=== PATIENT | female | born 1945 | race Caucasian/White ===

== ENCOUNTER 2021-06-16 15:38 | Inpatient (IN) | payer MEDICARE, BC, SELFPAY ==
--- NOTE | ~2021-06-16 | XR_ITS ---
EXAMINATION: XR CHEST CLINICAL INFORMATION: Lung carcinoma. Upper respiratory symptoms COMPARISON: None TECHNIQUE: 2 views of the chest were obtained. FINDINGS: No previous. Heart and mediastinum is within normal limits. Nipple shadows noted at both bases. Lungs are mildly hyperinflated. There is a nonspecific irregular density within the left upper lobe measuring up to approximately 13 mm. This is nonspecific on this baseline exam. Minor reticular nodularity suspected within both apices. No pleural fluid. No overt CHF. Marked compression fracture of a mid to lower dorsal vertebral body as well as at the L1 level suspected. XR/XR chest 2V IMPRESSION: No infiltrate. 13 mm nonspecific nodular density left upper lobe. Recommend elective workup. A malignant lesion is not excluded based on this baseline finding.
[2021-06-16 17:00] VITALS: BP 107/60; PULSE 73; RESP 16; TEMP 36.9; O2SAT 100
[2021-06-16 17:01] VITALS: BMI 15.3
--- NOTE | 2021-06-16 20:29 | PC.ADMIT ---
Patient arrived via stretcher as a transfer from [facility] medical unit. Per crisis report, patient was brought to ER after eloping from PCP appointment, found walking on train tracks disoriented, and ambulance was called to transport patient to hospital. Admitted onto a medical unit for malnutrition and rule out any medical issues; Head CT Scan completed and showed chronic small vessel disease, no findings of malignancy. Per RN-RN report, swallow eval was completed at [facility] and patient able to swallow all textures and consistencies without issues; patient prefers pureed diet and continues to report difficulty swallowing. This Atomic Spectroscopist was notified by [facility] RN that patient became agitated when told she was told she was going to be transferred to [facility], Zyprexa 2.5mg PO was administered with no effect; agitation escalated when transport arrived to transfer patient and Zyprexa 2.5mg IM was administered. Upon arrival to the unit patient was alert, oriented to person, place and president; confused and forgetful, easily irritated; remained calm with no signs of agitation. Disorganized thought process, tangential speech; somatically perseverating. Patient reported multiple times I don't want to be here , I feel like the pills and shots don't work. HCP/Spouse was notified of patient's admission to the unit via phone call from this Atomic Spectroscopist. Patient refused to sign all paperwork upon admission. Patient here on a Section 12B, signed by Dr. Orr; placed on 15 minute checks for safety. Denies SI/HI/AVH.
[2021-06-17 06:00] VITALS: BP 105/59; PULSE 66; RESP 16; TEMP 36.2; O2SAT 100
[2021-06-17 07:23] LABS: Basophils Percent Auto 0.9 % (0-2); Eosinophils Absolute Auto 0.1 X10*3/uL (0.0-0.4); Hematocrit 40.1 % (37-47); Imm Gran Abs Auto 0.02 X10*3/uL (0.00-0.03); Imm Gran Pct Auto 0.9 % (0.0-0.4); Lymphocytes Absolute Auto 0.6 X10*3/uL (1.2-4.9); Lymphocytes Percent Auto 26.5 % (20-40); MANUAL DIFF FLAG SCAN; Mean Corpuscular HGB Conc 32.4 g/dl (31.0-35.0); Mean Corpuscular Hemoglobin 33.4 pg (27.0-33.0); Mean Corpuscular Volume 103.1 fL (80-98); Mean Platelet Volume 9.5 fL (9.4-12.3); Monocytes Absolute Auto 0.3 X10*3/uL (0.1-1.2); Monocytes Percent Auto 11.5 % (2-11); Neutrophils Absolute Auto 1.3 X10*3/uL (2.0-8.3); Neutrophils Percent Auto 57.2 % (45-73); Platelet Count 154 X10*3/uL (160-400); Red Blood Count 3.89 X10*6/uL (4.20-5.50); Red Cell Distribution Width 12.7 % (11.0-16.0); SCAN SMEAR FLAG 1
[2021-06-17 07:32] LABS: White Blood Count 2.3 X10*3/uL (4.8-10.8)
[2021-06-17 07:43] LABS: Estimated Average Glucose 88 mg/dL; Hemoglobin A1c % 4.7 %
[2021-06-17 07:55] LABS: Alanine Aminotransferase 38 U/L (0-31); Albumin Level 3.7 g/dL (3.5-5.0); Alkaline Phosphatase 60 U/L (39-117); Anion Gap 12 (12-20); Aspartate Amino Transferase 15 U/L (5-31); Bilirubin Total 0.4 mg/dL (0.0-1.0); Blood Urea Nitrogen 21 mg/dL (9-16); Calcium 9.4 mg/dL (8.4-10.2); Carbon Dioxide 30 mmol/L (22-29); Chloride 106 mmol/L (96-108); Cholesterol 269 mg/dL; Creatinine Clr Calc Pharmacy 47.3; Estimated Glomerular Filt Rate > 60; Glucose Fasting 90 mg/dL (60-99); HDL Cholesterol 67 mg/dL; LDL Cholesterol Calculated 188 mg/dl; Potassium 4.5 mmol/L (3.3-5.1); Sodium 143 mmol/L (135-145); Triglycerides 73 mg/dL
[2021-06-17 08:17] LABS: Free T4 (Free Thyroxine) 0.94 ng/dL (0.71-1.85); Thyroid Stimulating Hormone 0.87 uIU/mL (0.32-4.0)
[2021-06-17 08:24] LABS: SLIDE REVIEW VERIFIED
[2021-06-17 08:27] LABS: Folate 8.7 ng/mL (> or = 4.0); Vitamin B12 222 pg/mL (200-900)
[2021-06-17] MEDS: Thiamine HCL 100 MG TABLET PO (08:35)
[2021-06-17] MEDS: Multivitamin TABLET 1 TAB PO (08:35)
[2021-06-17] MEDS: Folic Acid 1 MG TABLET PO (08:35)
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
[2021-06-17 15:17] VITALS: BMI 15.3
--- NOTE | 2021-06-17 15:26 | MHC.CLN ---
RE: CONSULT PT IS SEVERELY MALNOURISHED PT WITH SEVERELY DEPLETED SUBCUTANEOUS FAT AND MUSCLE MASS WITH BMI 15. PT ALSO REFUSES REGULAR DIET AND INSIST ON EATING PUREED DIET ONLY, ALTHOUGH DOES NOT NEED MODIFIED DIET CONSISTENCY AND CLEARED BY FIELD CLERK. PT REFUSES TO REPORT UBW RANGE AND STATES, IT DOESN'T MATTER ANYWAY! I WILL NEVER GET BACK THERE, AND I DON'T HAVE ANY INSURANCE TO COVER IT DIET RX: REGULAR-WILL CHANGE DIET TO PUREED PER PT REQUEST RECOMMEND ADDING ENSURE BID TO INCREASE KCALS SUPPLEMENTS TO PROVIDE 700KCALS, 40G PROTEIN MONITOR LYTES CLOSELY FOR RE-FEEDING MG, PHOS, K+ WEIGHTS WEEKLY SEE ALSO CLINICAL NUTRITION ASSESSMENT
[2021-06-17 18:00] VITALS: BP 108/56; PULSE 98; RESP 16; TEMP 36.6; O2SAT 99
[2021-06-18] MEDS: Thiamine HCL 100 MG TABLET PO (10:07)
[2021-06-18] MEDS: Multivitamin TABLET 1 TAB PO (10:07)
[2021-06-18] MEDS: Folic Acid 1 MG TABLET PO (10:07)
--- NOTE | 2021-06-18 12:41 | HO.PSYCHPN ---
Subjective Subjective Date of Service: 06/18/21 Reason For Visit: depression Interim History: The patient is severely malnourished, she stated that she would like to get better, she denied suicidal ideation or psychosis, she admitted of been very depressed. She was able to explain how she was sent here and she was very upset with her at the PCP's office. Review of Systems Acute medical concerns: No Medical Review of Systems: unchanged Mental Status Exam Mental Status Exam Patient Appearance: Fatigued (mal nourished) Patient Orientation: Person, Place and Situation Level of Consciousness: Awake Patient Behavior: Suspicious and Fearful Mood Description: Withdrawn Affect Description: Constricted and Depressed Patient Cognition Impaired: No Ability to Follow Directions: Fair Speech Pattern: Clear Hallucinations: None Delusions: Not Present Thought Process: Distracted Thought Content: positive for [place], positive for Circumstantial and positive for Logical Depressive Symptoms: Increased Anxiety and Changes in Appetite Judgement: Poor Diagnostics Vital Signs (24Hr): Vital Signs - 24 hr 06/17/21 18:00 Temperature 97.9 F Pulse Rate 98 Respiratory Rate 16 Blood Pressure 108/56 L Pulse Oximetry 99 Body Mass Index 15.3 Labs Results: 06/17/21 07:10 06/17/21 07:10 Labs: Laboratory Results - last 48 hr 06/17/21 06/17/21 06/17/21 07:10 07:10 07:10 WBC 2.3 L RBC 3.89 L Hgb 13.0 Hct 40.1 MCV 103.1 H MCH 33.4 H MCHC 32.4 RDW 12.7 Plt Count 154 L MPV 9.5 Immature Gran % (Auto) 0.9 H Neut % (Auto) 57.2 Lymph % (Auto) 26.5 [place] % (Auto) 11.5 H Eos % (Auto) 3.0 Baso % (Auto) 0.9 Lymph # (Auto) 0.6 L [place] # (Auto) 0.3 Eos # (Auto) 0.1 Baso # (Auto) 0.0 Abs Immat Gran (auto) 0.02 Absolute Neuts (auto) 1.3 L Absolute Nucleated RBC 0.000 Nucleated RBC % (auto) 0.0 Smear Tech's Comments VERIFIED Smear Path Review SEE NOTE Sodium 143 Potassium 4.5 Chloride 106 Carbon Dioxide 30 H Anion Gap 12 BUN 21 H Creatinine 0.74 Estim Creat Clear Calc 47.3 Estimated GFR > 60 Fasting Glucose 90 Estimat Average Glucose 88 Hemoglobin A1c % 4.7 Calcium 9.4 Total Bilirubin 0.4 AST 15 ALT 38 H Alkaline Phosphatase 60 Total Protein 6.0 L Albumin 3.7 Triglycerides 73 Cholesterol 269 LDL Cholesterol, Calc 188 HDL Cholesterol 67 Vitamin B12 Folate TSH 0.87 Free T4 0.94 06/17/21 07:10 WBC RBC Hgb Hct MCV MCH MCHC RDW Plt Count MPV Immature Gran % (Auto) Neut % (Auto) Lymph % (Auto) [place] % (Auto) Eos % (Auto) Baso % (Auto) Lymph # (Auto) [place] # (Auto) Eos # (Auto) Baso # (Auto) Abs Immat Gran (auto) Absolute Neuts (auto) Absolute Nucleated RBC Nucleated RBC % (auto) Smear Tech's Comments Smear Path Review Sodium Potassium Chloride Carbon Dioxide Anion Gap BUN Creatinine Estim Creat Clear Calc Estimated GFR Fasting Glucose Estimat Average Glucose Hemoglobin A1c % Calcium Total Bilirubin AST ALT Alkaline Phosphatase Total Protein Albumin Triglycerides Cholesterol LDL Cholesterol, Calc HDL Cholesterol Vitamin B12 222 Folate 8.7 TSH Free T4 Medications Medications Current Medications Generic Name Dose Route Start Last Admin Trade Name Freq PRN Reason Stop Dose Admin Acetaminophen 650 mg 06/16/21 17:23 Acetaminophen 325 Mg Tablet PO Q6H PRN Headache/Pain Mild Scale (1-3) Al Hydroxide/Mg Hydroxide 30 ml 06/16/21 17:23 Magnesium Hydrox/Alum Hydrox 30 Ml Oral.Susp PO Q6H PRN Heartburn/Nausea Folic Acid 1 mg 06/17/21 09:00 06/18/21 10:07 Folic Acid 1 Mg Tablet PO 1 mg DAILY GUERO Administration Hydroxyzine HCl 25 mg 06/16/21 17:23 Hydroxyzine Hcl 25 Mg Tablet PO BEDTIME PRN Anxiety Lidocaine 1 patch 06/17/21 09:00 06/18/21 10:10 Lidocaine 4 % Patch Adh..Patch TRANSDERMA Not Given DAILY GUERO Magnesium Hydroxide 30 ml 06/16/21 17:23 Milk Of Magnesia 30 Ml Oral.Susp PO DAILY PRN Constipation Mirtazapine 7.5 mg 06/17/21 21:00 06/17/21 20:55 Mirtazapine 7.5 Mg Tablet PO Not Given BEDTIME GUERO Multivitamins/Vitamin C 1 tab 06/17/21 09:00 06/18/21 10:07 Multivitamin Tablet PO 1 tab DAILY GUERO Administration Olanzapine 5 mg 06/17/21 21:00 06/17/21 20:55 Olanzapine 5 Mg Tablet PO Not Given BEDTIME GUERO Thiamine HCl 100 mg 06/17/21 09:00 06/18/21 10:07 Thiamine Hcl 100 Mg Tablet PO 100 mg DAILY GUERO Administration Trazodone HCl 50 mg 06/16/21 17:23 Trazodone Hcl 50 Mg Tablet PO BEDTIME PRN Insomnia Allergies Allergies Allergy/AdvReac Type Severity Reaction Status Date / Time acetaminophen [From Percocet] Allergy Unknown Verified 06/16/21 16:20 clotrimazole Allergy Unknown Verified 06/16/21 16:20 oxycodone [From Percocet] Allergy Unknown Verified 06/16/21 16:20 paroxetine Allergy Unknown Verified 06/16/21 16:20 sulfamethoxazole Allergy Unknown Verified 06/16/21 16:20 [From Sulfamethoxazole-Trimethoprim] trimethoprim Allergy Unknown Verified 06/16/21 16:20 [From Sulfamethoxazole-Trimethoprim] Assessment & Plan Assessment & Plan (1) 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 Plan: Continue Zyprexa and REmeron. Gather collateral information. Greater than 50% of the session was spent on counseling and/or coordination of care Reason for contiued inpatient stay Substantial Risk for: harm to self, inability to function, rapid decompensation and med/psych decompensation
--- NOTE | 2021-06-18 13:36 | MHC.CLN ---
Addendum entered by Aubree Arias RD 06/18/21 13:37: STAFF REPORTED THAT PATIENT ATE PUREE FOOD TODAY AND DRANK ENSURE SUPPLEMENT. Original Note: FOLLOW UP
--- NOTE | 2021-06-18 18:15 | P.HPHOSP_ITS ---
History of Present Illness Date of Service: 06/18/21 Chief Complaint: For H&P As 75-year-old female history of lung cancer status post radiation who was recently admitted to [facility]: Due to delusional issues for psych evaluation further she also had MRI of brain that time which was fine(as per the discharge summary([facility])-patient was admitted now to psych floor because she?referred from the ED of [facility] for depression and psychotic symptoms.? The patient was at her PCP and as per her report, she got angry , had a verbal altercation with her and she left the clinic.? She was found by [place] Police walking on the train tracks. Currently went to see the patient seems flat affect and answers only few questions denies any pain or any shortness of breath or abdominal pain or urinary complaints No fevers or any new symptoms as per staff. Patient is patient poor historian-history is taken with the help of staff and discharge summary from [facility]. PMX: Adenocarcinoma of lung. Dysphagia with normal barium swallow on 07/2020 Fracture of the radius. History of atrial paroxysmal tachycardia Hyperlipidemia Osteoporosis. Otosclerosis pSHX: Cataract extractions in 2017 Colonoscopy normal 12/25/2009 hip fracture surgery 2011 cholecystectomy laparoscopy 2002 total abdominal hysterectomy 1988. Family History: Father abused alcohol. Social History: Lives with her , she has adult children, she has good social support and she has worked on the food industry.? Review of Systems Review of Systems: Answers limited questions: Currently went to see the patient seems flat affect and answers only few questions denies any pain or any shortness of breath or abdominal pain or urinary complaints No fevers or any new symptoms as per staff Seems very sad and depressed also has flat affect as above and and [place] seems to me [facility] Social History Household Members: Spouse Housing: House Do you presently have visiting nurse or other home services: No Unable to assess alcohol history related to: Unable to respond Patient Tobacco Use Status: Former Tobacco user Quit Date: 2003 Tobacco use type: Cigarette Smoked in Last 30 Days: No Use of substances other than those prescribed or required for medical reasons: No Currently Displaying Signs/Symptoms of Drug Intoxication Withdrawal: No Do you feel safe in your current relationship?: Yes Are you made to feel afraid or neglected: No Advance Directives: Yes Advance Directives Information Provided: No Advance Directives on File: Yes (HCP: Tremayne Ribera, spouse ) Do you have thoughts of harming others: None Do you have a plan to hurt others: No Plan Recently lost weight without trying: Yes How much weight loss: Unsure Eating poorly because of decreased appetite: No Nutrition screen score: 4 Nutrition Risks: Difficulty swallowing and Emaciation/Cachexia Patient : No : No Poor oral hygiene: No service: No Sexual orientation: Straight/Heterosexual Meds Allergies Allergy/AdvReac Type Severity Reaction Status Date / Time acetaminophen [From Percocet] Allergy Unknown Verified 06/16/21 16:20 clotrimazole Allergy Unknown Verified 06/16/21 16:20 oxycodone [From Percocet] Allergy Unknown Verified 06/16/21 16:20 paroxetine Allergy Unknown Verified 06/16/21 16:20 sulfamethoxazole Allergy Unknown Verified 06/16/21 16:20 [From Sulfamethoxazole-Trimethoprim] trimethoprim Allergy Unknown Verified 06/16/21 16:20 [From Sulfamethoxazole-Trimethoprim] Active Medications: Current Medications Generic Name Dose Route Start Last Admin Trade Name Freq PRN Reason Stop Dose Admin Acetaminophen 650 mg 06/16/21 17:23 Acetaminophen 325 Mg Tablet PO Q6H PRN Headache/Pain Mild Scale (1-3) Al Hydroxide/Mg Hydroxide 30 ml 06/16/21 17:23 Magnesium Hydrox/Alum Hydrox 30 Ml Oral.Susp PO Q6H PRN Heartburn/Nausea Folic Acid 1 mg 06/17/21 09:00 06/18/21 10:07 Folic Acid 1 Mg Tablet PO 1 mg DAILY GUERO Administration Lidocaine 1 patch 06/17/21 09:00 06/18/21 10:10 Lidocaine 4 % Patch Adh..Patch TRANSDERMA Not Given DAILY GUERO Lorazepam 0.25 mg 06/18/21 12:40 Lorazepam 0.5 Mg Tablet PO Q8H PRN Anxiety Magnesium Hydroxide 30 ml 06/16/21 17:23 Milk Of Magnesia 30 Ml Oral.Susp PO DAILY PRN Constipation Mirtazapine 7.5 mg 06/17/21 21:00 06/17/21 20:55 Mirtazapine 7.5 Mg Tablet PO Not Given BEDTIME GUERO Multivitamins/Vitamin C 1 tab 06/17/21 09:00 06/18/21 10:07 Multivitamin Tablet PO 1 tab DAILY GUERO Administration Olanzapine 5 mg 06/17/21 21:00 06/17/21 20:55 Olanzapine 5 Mg Tablet PO Not Given BEDTIME GUERO Thiamine HCl 100 mg 06/17/21 09:00 06/18/21 10:07 Thiamine Hcl 100 Mg Tablet PO 100 mg DAILY GUERO Administration Trazodone HCl 50 mg 06/16/21 17:23 Trazodone Hcl 50 Mg Tablet PO BEDTIME PRN Insomnia Home Medications Medication Instructions Recorded Confirmed Last Taken Type folic acid 1 mg tablet 1 mg PO DAILY 06/16/21 06/16/21 06/15/21 09:00 History lidocaine 5 % topical patch 1 patch TOPICAL DAILY 06/16/21 06/16/21 Unknown History mirtazapine 7.5 mg tablet 7.5 mg PO BEDTIME 06/16/21 06/16/21 Unknown History multivitamin 1 tab PO DAILY 06/16/21 06/16/21 06/15/21 History olanzapine 5 mg tablet 5 mg PO BEDTIME 06/16/21 06/16/21 06/15/21 History thiamine HCl (vitamin B1) 100 mg 100 mg PO DAILY 06/16/21 06/16/21 06/15/21 History tablet Physical Exam Vital Signs and Narrative: Vital Signs: Last Vital Signs Temp 97.9 F 06/17/21 18:00 Pulse 98 06/17/21 18:00 Resp 16 06/17/21 18:00 BP 108/56 L 06/17/21 18:00 Pulse Ox 99 06/17/21 18:00 Body Mass Index 15.3 Physical exam: Constitutional: Not in acute distress, trying to sleep. Cvs: [id number], [id number] , no murmur res: clear to auscultation ,no rhonchii or wheezing abd: no rebound or guarding ,nt, bs present. ext pulses present , no cyanosis neuro: Seems awake and alert , moves all extremities Results Labs CBC and Chem 7: 06/17/21 07:10 06/17/21 07:10 Assessment and Plan (1) Dementia associated with other underlying disease with behavioral disturbance: Status: Acute 1. Dementia with behavioral disturbances: Patient being managed the psychiatric unit. On Zyprexa and mirtazapine 2. History of lung cancer status post radiation: As per [facility] paper work brain mri neg in april/2021. Consider getting further information from PCP, try to call the -he could not able to provide information. Quality Stroke Does the patient have a stroke diagnosis?: No VTE Prior VTE?: No VTE Risk Level:: Medical - low VTE Device Contraindication: Patient Refused VTE Drug Contraindication: Patient Refused
[2021-06-19] MEDS: traZODone HCL 50 MG TABLET PO (01:48)
[2021-06-19] MEDS: Folic Acid 1 MG TABLET PO (08:47)
[2021-06-19] MEDS: Thiamine HCL 100 MG TABLET PO (08:48)
[2021-06-19] MEDS: Multivitamin TABLET 1 TAB PO (08:48)
[2021-06-19] MEDS: Lidocaine 4 % Patch ADH..PATCH 1 PATCH TRANSDERMA (08:48)
[2021-06-19 17:59] VITALS: BP 90/58; PULSE 97; RESP 16; TEMP 36.7; O2SAT 98
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
[2021-06-20 06:00] VITALS: BP 87/54; PULSE 99; RESP 18; TEMP 36.7; O2SAT 100
[2021-06-20] MEDS: LORazepam 0.5 MG TABLET 0.25 MG PO (15:07)
[2021-06-20 17:52] VITALS: BP 105/54; PULSE 87; RESP 16; TEMP 36.9; O2SAT 99
[2021-06-20] MEDS: OLANZapine 5 MG TABLET PO (20:00)
[2021-06-20] MEDS: Mirtazapine 7.5 MG TABLET PO (20:00)
--- NOTE | 2021-06-20 22:58 | HO.PSYCHPN ---
Subjective Subjective Date of Service: 06/20/21 Reason For Visit: depression Interim History: Patient seen. DW team. Patient refusing Zyporexa and Mirtazapine. She says they won't help. She is hopeless. Appetite poor. She says she has something in my system. but she is not clear what she means. Says this thing makes her hands cold and her skin dry and lotion doesn't help. Looks bewildered and confused. Says she has no clothes other than what she is wearing. We discuss that unit can help get her some clothes if family can't get to the hospital. Patient denies SI. She is very thin and appears malnourished. Per RN she can be irritable and angry. Review of Systems Review of Systems Answers limited questions: Currently went to see the patient seems flat affect and answers only few questions denies any pain or any shortness of breath or abdominal pain or urinary complaints No fevers or any new symptoms as per staff Seems very sad and depressed also has flat affect as above and and [place] seems to me Constitutional: Reports anorexia Eyes: Reports as per HPI Reports system reviewed and no additional complaints, except as documented Cardiovascular: Reports as per HPI Respiratory: Reports as per HPI Gastrointestinal: Reports as per HPI Musculoskeletal: Reports no additional musculoskeletal complaints Skin/Breast: Reports system reviewed and no additional complaints, except as docu Reports system reviewed and no additional complaints, except as documented Psychiatric: Reports as per HPI Endocrine: Reports no additional endocrine complaints Hematologic/Lymphatic: Reports as per HPI Allergic/Immunologic: Reports as per HPI Mental Status Exam Mental Status Exam Patient Appearance: Fatigued (mal nourished), Disheveled and Unkempt Patient Orientation: Person, Place and Situation Level of Consciousness: Awake Patient Behavior: Guarded, Suspicious, Fearful, Avoidant and Distractible Mood Description: Apathetic, Withdrawn and Depressed Affect Description: Constricted and Depressed Patient Cognition Impaired: No Ability to Follow Directions: Fair Speech Pattern: Clear Memory Description: Remote Impaired and Immediate Impaired Depressive Symptoms: Increased Irritability, Difficulty Sleeping, Significant Weight Loss, Feelings of Worthlessness, Hopelessness, Isolating-Friends/Family and Unhappiness Abnormal Motor Activity Signs and Symptoms: Psychomotor Retardation Judgement: Poor Diagnostics Vital Signs (24Hr): Vital Signs - 24 hr 06/20/21 06:00 06/20/21 17:52 Temperature 98.1 F 98.4 F Pulse Rate 99 87 Respiratory Rate 18 16 Blood Pressure 87/54 L 105/54 L Pulse Oximetry 100 99 Body Mass Index 15.3 Labs Results: 06/17/21 07:10 06/17/21 07:10 Medications Medications Current Medications Generic Name Dose Route Start Last Admin Trade Name Freq PRN Reason Stop Dose Admin Acetaminophen 650 mg 06/16/21 17:23 Acetaminophen 325 Mg Tablet PO Q6H PRN Headache/Pain Mild Scale (1-3) Al Hydroxide/Mg Hydroxide 30 ml 06/16/21 17:23 Magnesium Hydrox/Alum Hydrox 30 Ml Oral.Susp PO Q6H PRN Heartburn/Nausea Folic Acid 1 mg 06/17/21 09:00 06/20/21 08:50 Folic Acid 1 Mg Tablet PO Not Given DAILY GUERO Lidocaine 1 patch 06/17/21 09:00 06/20/21 08:51 Lidocaine 4 % Patch Adh..Patch TRANSDERMA Not Given DAILY GUERO Lorazepam 0.25 mg 06/18/21 12:40 06/20/21 15:07 Lorazepam 0.5 Mg Tablet PO 0.25 mg Q8H PRN Administration Anxiety Magnesium Hydroxide 30 ml 06/16/21 17:23 Milk Of Magnesia 30 Ml Oral.Susp PO DAILY PRN Constipation Mirtazapine 7.5 mg 06/17/21 21:00 06/20/21 20:00 Mirtazapine 7.5 Mg Tablet PO 7.5 mg BEDTIME GUERO Administration Multivitamins/Vitamin C 1 tab 06/17/21 09:00 06/20/21 08:51 Multivitamin Tablet PO Not Given DAILY GUERO Olanzapine 5 mg 06/17/21 21:00 06/20/21 20:00 Olanzapine 5 Mg Tablet PO 5 mg BEDTIME GUERO Administration Thiamine HCl 100 mg 06/17/21 09:00 06/20/21 08:51 Thiamine Hcl 100 Mg Tablet PO Not Given DAILY GUERO Trazodone HCl 50 mg 06/16/21 17:23 06/19/21 01:48 Trazodone Hcl 50 Mg Tablet PO 50 mg BEDTIME PRN Administration Insomnia Allergies Allergies Allergy/AdvReac Type Severity Reaction Status Date / Time acetaminophen [From Percocet] Allergy Unknown Verified 06/16/21 16:20 clotrimazole Allergy Unknown Verified 06/16/21 16:20 oxycodone [From Percocet] Allergy Unknown Verified 06/16/21 16:20 paroxetine Allergy Unknown Verified 06/16/21 16:20 sulfamethoxazole Allergy Unknown Verified 06/16/21 16:20 [From Sulfamethoxazole-Trimethoprim] trimethoprim Allergy Unknown Verified 06/16/21 16:20 [From Sulfamethoxazole-Trimethoprim] Assessment & Plan Assessment & Plan (1) Dementia associated with other underlying disease with behavioral disturbance: Status: Acute Code(s): F02.81 - Dementia in other diseases classified elsewhere with behavioral disturbance Assessment and Plan: 1. Dementia with behavioral disturbances: Patient being managed the psychiatric unit. On Zyprexa and mirtazapine. Encourage to take medication 2. History of lung cancer status post radiation: As per [facility] paper work brain mri neg in april/2021. Consider getting further information from PCP, try to call the -he could not able to provide information. Greater than 50% of the session was spent on counseling and/or coordination of care Reason for contiued inpatient stay Substantial Risk for: harm to others, inability to function and rapid decompensation
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
[2021-06-21] MEDS: Folic Acid 1 MG TABLET PO (08:10)
[2021-06-21] MEDS: Multivitamin TABLET 1 TAB PO (08:10)
[2021-06-21] MEDS: Thiamine HCL 100 MG TABLET PO (08:10)
[2021-06-21] MEDS: Lidocaine 4 % Patch ADH..PATCH 1 PATCH TRANSDERMA (08:10)
--- NOTE | 2021-06-21 14:14 | MHC.CLN ---
NUTRITION ASKED TO REVIEW MENU WITH PATIENT. DIET=NDD2. UNABLE TO STATE WHAT FOODS SHE MAY LIKE OR DISLIKE. RECEIVES ENSURE BID. STATED THAT ENSURE IS TOO SWEET . OFFERED OTHER SUPPLEMENT AND PATIENT DECLINED. CONTINUE CURRENT DIET AND ENCOURAGE INTAKE OF SUPPLEMENT.
[2021-06-21] MEDS: Mirtazapine 7.5 MG TABLET PO (22:08)
[2021-06-21] MEDS: OLANZapine 5 MG TABLET PO (22:08)
[2021-06-22] MEDS: Multivitamin TABLET 1 TAB PO (08:19)
[2021-06-22] MEDS: Folic Acid 1 MG TABLET PO (08:19)
[2021-06-22] MEDS: Thiamine HCL 100 MG TABLET PO (08:27)
--- NOTE | 2021-06-22 11:45 | HO.PSYCHPN ---
Subjective Subjective Date of Service: 06/22/21 Reason For Visit: depression Interim History: The patient has eaten 100% of her diet. She scored 20/30 on the SLAMS test. She has attended to groups and she has verbalized to the staff that she is not happy at all . Tomorrow, we will have a family meeting Review of Systems Acute medical concerns: No Medical Review of Systems: unchanged Mental Status Exam Mental Status Exam Patient Appearance: Disheveled Patient Orientation: Person Level of Consciousness: Awake Patient Behavior: Guarded and Suspicious Mood Description: Withdrawn Affect Description: Constricted Patient Cognition Impaired: Yes Ability to Follow Directions: Good Speech Pattern: Clear Hallucinations: None Delusions: Not Present Thought Process: Distracted and Evasive Thought Content: positive for Circumstantial Judgement: Poor Diagnostics Vital Signs (24Hr): Body Mass Index 15.3 Labs Results: 06/17/21 07:10 06/17/21 07:10 Medications Medications Current Medications Generic Name Dose Route Start Last Admin Trade Name Freq PRN Reason Stop Dose Admin Acetaminophen 650 mg 06/16/21 17:23 Acetaminophen 325 Mg Tablet PO Q6H PRN Headache/Pain Mild Scale (1-3) Al Hydroxide/Mg Hydroxide 30 ml 06/16/21 17:23 Magnesium Hydrox/Alum Hydrox 30 Ml Oral.Susp PO Q6H PRN Heartburn/Nausea Folic Acid 1 mg 06/17/21 09:00 06/22/21 08:19 Folic Acid 1 Mg Tablet PO 1 mg DAILY GUERO Administration Lidocaine 1 patch 06/17/21 09:00 06/22/21 10:01 Lidocaine 4 % Patch Adh..Patch TRANSDERMA Not Given DAILY GUERO Lorazepam 0.25 mg 06/18/21 12:40 06/20/21 15:07 Lorazepam 0.5 Mg Tablet PO 0.25 mg Q8H PRN Administration Anxiety Magnesium Hydroxide 30 ml 06/16/21 17:23 Milk Of Magnesia 30 Ml Oral.Susp PO DAILY PRN Constipation Mirtazapine 7.5 mg 06/17/21 21:00 06/21/21 22:08 Mirtazapine 7.5 Mg Tablet PO 7.5 mg BEDTIME GUERO Administration Multivitamins/Vitamin C 1 tab 06/17/21 09:00 06/22/21 08:19 Multivitamin Tablet PO 1 tab DAILY GUERO Administration Olanzapine 5 mg 06/17/21 21:00 06/21/21 22:08 Olanzapine 5 Mg Tablet PO 5 mg BEDTIME GUERO Administration Thiamine HCl 100 mg 06/17/21 09:00 06/22/21 08:27 Thiamine Hcl 100 Mg Tablet PO 100 mg DAILY GUERO Administration Trazodone HCl 50 mg 06/16/21 17:23 06/19/21 01:48 Trazodone Hcl 50 Mg Tablet PO 50 mg BEDTIME PRN Administration Insomnia Allergies Allergies Allergy/AdvReac Type Severity Reaction Status Date / Time acetaminophen [From Percocet] Allergy Unknown Verified 06/16/21 16:20 clotrimazole Allergy Unknown Verified 06/16/21 16:20 oxycodone [From Percocet] Allergy Unknown Verified 06/16/21 16:20 paroxetine Allergy Unknown Verified 06/16/21 16:20 sulfamethoxazole Allergy Unknown Verified 06/16/21 16:20 [From Sulfamethoxazole-Trimethoprim] trimethoprim Allergy Unknown Verified 06/16/21 16:20 [From Sulfamethoxazole-Trimethoprim] Assessment & Plan Assessment & Plan (1) Dementia associated with other underlying disease with behavioral disturbance: Status: Acute Code(s): F02.81 - Dementia in other diseases classified elsewhere with behavioral disturbance Assessment and Plan: 1. Dementia with behavioral disturbances: Patient being managed the psychiatric unit. On Zyprexa and mirtazapine. Encourage to take medication 2. History of lung cancer status post radiation: As per [facility] paper work brain mri neg in april/2021. Consider getting further information from PCP, try to call the -he could not able to provide information. Greater than 50% of the session was spent on counseling and/or coordination of care Reason for contiued inpatient stay Substantial Risk for: inability to function, rapid decompensation and med/psych decompensation
[2021-06-22 18:00] VITALS: BP 91/42; PULSE 90; RESP 12; TEMP 36.7; O2SAT 97
[2021-06-23 09:05] VITALS: BP 97/54; PULSE 78; RESP 16; TEMP 36.6; O2SAT 98
[2021-06-23] MEDS: Multivitamin TABLET 1 TAB PO (09:23)
[2021-06-23] MEDS: Thiamine HCL 100 MG TABLET PO (09:23)
[2021-06-23] MEDS: Folic Acid 1 MG TABLET PO (09:23)
[2021-06-23] MEDS: LORazepam 0.5 MG TABLET 0.25 MG PO (09:23)
--- NOTE | 2021-06-23 14:13 | MHC.CLN ---
NUTRITION VISITED PATIENT TODAY IN COMMON AREA. REPORTED EVERYTHING THAT SHE ATE FOR LUNCH AND APPEARED SATISFIED WITH MEAL AND VARIETY OF FOODS. REPORTED THAT ATE WELL.
--- NOTE | 2021-06-23 14:54 | P.PNPSI_ITS ---
Subjective Subjective Date of Service: 06/23/21 Reason For Visit: depression Interim History: The patient remains dysphoric and oppositional. We had a family meeting today with her and he reported that he cannot take care of her. We discussed options and she agreed to go to SNF. Medication Compliance: Intermittent Review of Systems Acute medical concerns: No Medical Review of Systems: unchanged Mental Status Exam Mental Status Exam Patient Appearance: Disheveled Patient Orientation: Person, Place and Situation Level of Consciousness: Awake and Appropriate Patient Behavior: Appropriate Mood Description: Withdrawn and Depressed Affect Description: Constricted and Angry Patient Cognition Impaired: Yes Ability to Follow Directions: Good Speech Pattern: Clear Memory Description: Intact Hallucinations: None Delusions: Paranoid Ideation Thought Process: Distracted and Evasive Thought Content: positive for Circumstantial and positive for Poverty of Content Judgement: Poor Diagnostics Vital Signs (24Hr): Vital Signs - 24 hr 06/22/21 18:00 06/23/21 09:05 Temperature 98.0 F 97.8 F Pulse Rate 90 78 Respiratory Rate 12 16 Blood Pressure 91/42 L 97/54 L Pulse Oximetry 97 98 Body Mass Index 15.3 Labs Results: 06/17/21 07:10 06/17/21 07:10 Medications Medications Current Medications Generic Name Dose Route Start Last Admin Trade Name Freq PRN Reason Stop Dose Admin Acetaminophen 650 mg 06/16/21 17:23 Acetaminophen 325 Mg Tablet PO Q6H PRN Headache/Pain Mild Scale (1-3) Al Hydroxide/Mg Hydroxide 30 ml 06/16/21 17:23 Magnesium Hydrox/Alum Hydrox 30 Ml Oral.Susp PO Q6H PRN Heartburn/Nausea Folic Acid 1 mg 06/17/21 09:00 06/23/21 09:23 Folic Acid 1 Mg Tablet PO 1 mg DAILY GUERO Administration Lidocaine 1 patch 06/17/21 09:00 06/23/21 10:51 Lidocaine 4 % Patch Adh..Patch TRANSDERMA Not Given DAILY GUREO Lorazepam 0.25 mg 06/18/21 12:40 06/23/21 09:23 Lorazepam 0.5 Mg Tablet PO 0.25 mg Q8H PRN Administration Anxiety Magnesium Hydroxide 30 ml 06/16/21 17:23 Milk Of Magnesia 30 Ml Oral.Susp PO DAILY PRN Constipation Mirtazapine 15 mg 06/22/21 21:00 06/22/21 21:12 Mirtazapine 15 Mg Tablet PO Not Given BEDTIME GUERO Multivitamins/Vitamin C 1 tab 06/17/21 09:00 06/23/21 09:23 Multivitamin Tablet PO 1 tab DAILY GUERO Administration Olanzapine 5 mg 06/17/21 21:00 06/22/21 21:12 Olanzapine 5 Mg Tablet PO Not Given BEDTIME GUERO Thiamine HCl 100 mg 06/17/21 09:00 06/23/21 09:23 Thiamine Hcl 100 Mg Tablet PO 100 mg DAILY GUERO Administration Trazodone HCl 100 mg 06/22/21 14:00 Trazodone Hcl 100 Mg Tablet PO BEDTIME PRN Insomnia Allergies Allergies Allergy/AdvReac Type Severity Reaction Status Date / Time acetaminophen [From Percocet] Allergy Unknown Verified 06/16/21 16:20 clotrimazole Allergy Unknown Verified 06/16/21 16:20 oxycodone [From Percocet] Allergy Unknown Verified 06/16/21 16:20 paroxetine Allergy Unknown Verified 06/16/21 16:20 sulfamethoxazole Allergy Unknown Verified 06/16/21 16:20 [From Sulfamethoxazole-Trimethoprim] trimethoprim Allergy Unknown Verified 06/16/21 16:20 [From Sulfamethoxazole-Trimethoprim] Assessment & Plan Assessment & Plan (1) Dementia associated with other underlying disease with behavioral disturbance: Status: Acute Code(s): F02.81 - Dementia in other diseases classified elsewhere with behavioral dis turbance Assessment and Plan: 1. Dementia with behavioral disturbances: Patient being managed the psychiatric unit. On Zyprexa and mirtazapine. Encourage to take medication 2. History of lung cancer status post radiation: As per [facility] paper work brain mri neg in april/2021. Consider getting further information from PCP, try to call the -he could not able to provide information. 3. Referral to SNF Greater than 50% of the session was spent on counseling and/or coordination of care Reason for contiued inpatient stay Substantial Risk for: inability to function, rapid decompensation and med/psych decompensation
[2021-06-23 18:00] VITALS: BP 96/46; PULSE 98; RESP 17; TEMP 36.8; O2SAT 98
[2021-06-23] MEDS: OLANZapine 5 MG TABLET PO (18:01)
[2021-06-24 06:00] VITALS: BP 89/54; PULSE 80; RESP 16; TEMP 36.8; O2SAT 100
[2021-06-24 07:00] VITALS: BMI 15.7
[2021-06-24] MEDS: Multivitamin TABLET 1 TAB PO (09:17)
[2021-06-24] MEDS: Folic Acid 1 MG TABLET PO (09:20)
[2021-06-24] MEDS: Thiamine HCL 100 MG TABLET PO (09:21)
[2021-06-24] MEDS: Lidocaine 4 % Patch ADH..PATCH 1 PATCH TRANSDERMA (09:24)
--- NOTE | 2021-06-24 12:19 | HO.PSYCHPN ---
Subjective Subjective Date of Service: 06/24/21 Reason For Visit: depression Interim History: The patient refused REmeron, still irritable and despondent but no aggressive behavior. She is going to have a [employer] application. She eats 100% of her diet Medication Compliance: Intermittent Review of Systems Acute medical concerns: No Medical Review of Systems: unchanged Mental Status Exam Mental Status Exam Patient Appearance: Well Grooomed Patient Orientation: Person, Place and Situation Level of Consciousness: Awake Patient Behavior: Guarded, Suspicious and Belligerent Mood Description: Depressed Affect Description: Constricted and Angry Patient Cognition Impaired: Yes Ability to Follow Directions: Fair Speech Pattern: Clear Hallucinations: None Delusions: Paranoid Ideation Thought Process: Distracted, Linear and Evasive Thought Content: positive for Poverty of Content Depressive Symptoms: Loss of Int. in Activity Judgement: Fair Diagnostics Vital Signs (24Hr): Vital Signs - 24 hr 06/23/21 18:00 06/24/21 06:00 Temperature 98.2 F 98.2 F Pulse Rate 98 80 Respiratory Rate 17 16 Blood Pressure 96/46 L 89/54 L Pulse Oximetry 98 100 Body Mass Index 15.7 Labs Results: 06/17/21 07:10 06/17/21 07:10 Medications Medications Current Medications Generic Name Dose Route Start Last Admin Trade Name Freq PRN Reason Stop Dose Admin Acetaminophen 650 mg 06/16/21 17:23 Acetaminophen 325 Mg Tablet PO Q6H PRN Headache/Pain Mild Scale (1-3) Al Hydroxide/Mg Hydroxide 30 ml 06/16/21 17:23 Magnesium Hydrox/Alum Hydrox 30 Ml Oral.Susp PO Q6H PRN Heartburn/Nausea Folic Acid 1 mg 06/17/21 09:00 06/24/21 09:20 Folic Acid 1 Mg Tablet PO 1 mg DAILY GUERO Administration Lidocaine 1 patch 06/17/21 09:00 06/24/21 09:24 Lidocaine 4 % Patch Adh..Patch TRANSDERMA 1 patch DAILY GUERO Administration Lorazepam 0.25 mg 06/18/21 12:40 06/23/21 09:23 Lorazepam 0.5 Mg Tablet PO 0.25 mg Q8H PRN Administration Anxiety Magnesium Hydroxide 30 ml 06/16/21 17:23 Milk Of Magnesia 30 Ml Oral.Susp PO DAILY PRN Constipation Mirtazapine 15 mg 06/22/21 21:00 06/23/21 20:36 Mirtazapine 15 Mg Tablet PO Not Given BEDTIME GUERO Multivitamins/Vitamin C 1 tab 06/17/21 09:00 06/24/21 09:17 Multivitamin Tablet PO 1 tab DAILY GUERO Administration Olanzapine 5 mg 06/17/21 21:00 06/23/21 18:01 Olanzapine 5 Mg Tablet PO 5 mg BEDTIME GUERO Administration Thiamine HCl 100 mg 06/17/21 09:00 06/24/21 09:21 Thiamine Hcl 100 Mg Tablet PO 100 mg DAILY GUERO Administration Trazodone HCl 100 mg 06/22/21 14:00 Trazodone Hcl 100 Mg Tablet PO BEDTIME PRN Insomnia Allergies Allergies Allergy/AdvReac Type Severity Reaction Status Date / Time acetaminophen [From Percocet] Allergy Unknown Verified 06/16/21 16:20 clotrimazole Allergy Unknown Verified 06/16/21 16:20 oxycodone [From Percocet] Allergy Unknown Verified 06/16/21 16:20 paroxetine Allergy Unknown Verified 06/16/21 16:20 sulfamethoxazole Allergy Unknown Verified 06/16/21 16:20 [From Sulfamethoxazole-Trimethoprim] trimethoprim Allergy Unknown Verified 06/16/21 16:20 [From Sulfamethoxazole-Trimethoprim] Assessment & Plan Assessment & Plan (1) Dementia associated with other underlying disease with behavioral disturbance: Status: Acute Code(s): F02.81 - Dementia in other diseases classified elsewhere with behavioral disturbance Assessment and Plan: 1. Dementia with behavioral disturbances: Patient being managed the psychiatric unit. On Zyprexa and mirtazapine. Encourage to take medication 2. History of lung cancer status post radiation: As per [facility] paper work brain mri neg in april/2021. Consider getting further information from PCP, try to call the -he could not able to provide information. 3. Referral to SNF Greater than 50% of the session was spent on counseling and/or coordination of care Reason for contiued inpatient stay Substantial Risk for: inability to function, rapid decompensation and med/psych decompensation
[2021-06-24 18:50] VITALS: BP 95/45; PULSE 89; RESP 17; TEMP 36.4; O2SAT 97
[2021-06-24] MEDS: LORazepam 0.5 MG TABLET 0.25 MG PO (19:24)
[2021-06-24] MEDS: Mirtazapine 15 MG TABLET PO (19:25)
[2021-06-24] MEDS: OLANZapine 5 MG TABLET PO (19:34)
[2021-06-25 06:00] VITALS: BP 88/50; PULSE 99; TEMP 36.8; O2SAT 97
[2021-06-25] MEDS: Folic Acid 1 MG TABLET PO (10:00)
[2021-06-25] MEDS: Multivitamin TABLET 1 TAB PO (10:00)
[2021-06-25] MEDS: Lidocaine 4 % Patch ADH..PATCH 1 PATCH TRANSDERMA (10:00)
[2021-06-25] MEDS: Thiamine HCL 100 MG TABLET PO (10:00)
--- NOTE | 2021-06-25 11:20 | MHC.CLN ---
NUTRITION MODERATE, FAVORABLE WEIGHT GAIN X 1 WEEK, +3.2%. APPEARS TO BE EATING WELL. CONTINUE CURRENT DIET AND SUPPLEMENT, REGULAR, NDD2, ENSURE 240 ML BID. CONTINUE TO FOLLOW WEEKLY.
--- NOTE | 2021-06-25 11:56 | P.PNPSI_ITS ---
Subjective Subjective Date of Service: 06/25/21 Reason For Visit: depression Interim History: The patient has been anxious that was helped with Ativan. SW has reached financial to start [facility] for discharge planning. Review of Systems Acute medical concerns: No Medical Review of Systems: unchanged Review of Systems Review of Systems Yes all other systems are reviewed and are negative Mental Status Exam Mental Status Exam Patient Appearance: Well Grooomed (very thin) Patient Orientation: Person, Place and Situation Level of Consciousness: Awake Patient Behavior: Appropriate and Cooperative Mood Description: Depressed and Hostile Affect Description: Constricted Patient Cognition Impaired: Yes Ability to Follow Directions: Good Speech Pattern: Clear Hallucinations: None Delusions: Not Present Thought Process: Distracted and Slowed Thinking Thought Content: positive for Circumstantial Judgement: Fair Diagnostics Vital Signs (24Hr): Vital Signs - 24 hr 06/24/21 18:50 06/25/21 06:00 Temperature 97.5 F 98.2 F Pulse Rate 89 99 Respiratory Rate 17 Blood Pressure 95/45 L 88/50 L Pulse Oximetry 97 97 Body Mass Index 15.7 Labs Results: 06/17/21 07:10 06/17/21 07:10 Medications Medications Current Medications Generic Name Dose Route Start Last Admin Trade Name Freq PRN Reason Stop Dose Admin Acetaminophen 650 mg 06/16/21 17:23 Acetaminophen 325 Mg Tablet PO Q6H PRN Headache/Pain Mild Scale (1-3) Al Hydroxide/Mg Hydroxide 30 ml 06/16/21 17:23 Magnesium Hydrox/Alum Hydrox 30 Ml Oral.Susp PO Q6H PRN Heartburn/Nausea Folic Acid 1 mg 06/17/21 09:00 06/25/21 10:00 Folic Acid 1 Mg Tablet PO 1 mg DAILY GUERO Administration Lidocaine 1 patch 06/17/21 09:00 06/25/21 10:00 Lidocaine 4 % Patch Adh..Patch TRANSDERMA 1 patch DAILY GUERO Administration Lorazepam 0.25 mg 06/18/21 12:40 06/24/21 19:24 Lorazepam 0.5 Mg Tablet PO 0.25 mg Q8H PRN Administration Anxiety Magnesium Hydroxide 30 ml 06/16/21 17:23 Milk Of Magnesia 30 Ml Oral.Susp PO DAILY PRN Constipation Mirtazapine 15 mg 06/22/21 21:00 06/24/21 19:25 Mirtazapine 15 Mg Tablet PO 15 mg BEDTIME GUERO Administration Multivitamins/Vitamin C 1 tab 06/17/21 09:00 06/25/21 10:00 Multivitamin Tablet PO 1 tab DAILY GUERO Administration Olanzapine 5 mg 06/17/21 21:00 06/24/21 19:34 Olanzapine 5 Mg Tablet PO 5 mg BEDTIME GUERO Administration Thiamine HCl 100 mg 06/17/21 09:00 06/25/21 10:00 Thiamine Hcl 100 Mg Tablet PO 100 mg DAILY GUERO Administration Trazodone HCl 100 mg 06/22/21 14:00 Trazodone Hcl 100 Mg Tablet PO BEDTIME PRN Insomnia Allergies Allergies Allergy/AdvReac Type Severity Reaction Status Date / Time acetaminophen [From Percocet] Allergy Unknown Verified 06/16/21 16:20 clotrimazole Allergy Unknown Verified 06/16/21 16:20 oxycodone [From Percocet] Allergy Unknown Verified 06/16/21 16:20 paroxetine Allergy Unknown Verified 06/16/21 16:20 sulfamethoxazole Allergy Unknown Verified 06/16/21 16:20 [From Sulfamethoxazole-Trimethoprim] trimethoprim Allergy Unknown Verified 06/16/21 16:20 [From Sulfamethoxazole-Trimethoprim] Assessment & Plan Assessment & Plan (1) Dementia associated with other underlying disease with behavioral disturbance: Status: Acute Code(s): F02.81 - Dementia in other diseases classified elsewhere with behavioral disturbance Assessment and Plan: 1. Dementia with behavioral disturbances: Patient being managed the psychiatric unit. On Zyprexa and mirtazapine. Encourage to take medication 2. History of lung cancer status post radiation: As per [facility] paper work brain mri neg in april/2021. Consider getting further information from PCP, try to call the -he could not able to provide information. 3. Referral to SNF Greater than 50% of the session was spent on counseling and/or coordination of care Reason for contiued inpatient stay Substantial Risk for: inability to function, rapid decompensation and med/psych decompensation
[2021-06-25 17:51] VITALS: BP 109/51; PULSE 72; RESP 17; TEMP 36.4; O2SAT 99
[2021-06-25] MEDS: OLANZapine 5 MG TABLET PO (20:07)
[2021-06-25] MEDS: Mirtazapine 15 MG TABLET PO (20:07)
[2021-06-26 06:00] VITALS: RESP 16
[2021-06-26] MEDS: Multivitamin TABLET 1 TAB PO (08:06)
[2021-06-26] MEDS: Thiamine HCL 100 MG TABLET PO (08:06)
[2021-06-26] MEDS: Folic Acid 1 MG TABLET PO (08:06)
--- NOTE | 2021-06-26 09:25 | P.PNPSI_ITS ---
Subjective Subjective Date of Service: 06/26/21 Reason For Visit: depression Interim History: pt is seen in her room, where she is lying in bed shortly after breakfast. appears cachectic. unable to say the reason for her hospitalization: because they sent me from the other hospital. mood stays the same. reports she feels that everybody's watching me, staff and peers included. sometimes i feel like they're trying to orritate me. asking for discharge. talking about how staff and peers send signals to each other via placing food in different spots. per staff, pt is taking medications and eating, yet often denies both. no other notable events or behaviors. Mental Status Exam Mental Status Exam Narrative: dressed half in personal wear and half in hospital scrubs. disheveled. no PMA/PMR. cooperative. speech nml in rate, amount, loudness, latency. decr prosody. thoughts linear and illogical. + delusions. affect constricted, hypo-intense, non-labile. mood stays the same. no SI/HI/AVH expressed. Diagnostics Vital Signs (24Hr): Vital Signs - 24 hr 06/25/21 17:51 06/26/21 06:00 Temperature 97.6 F Pulse Rate 72 Respiratory Rate 17 16 Blood Pressure 109/51 L Pulse Oximetry 99 Body Mass Index 15.7 Labs Results: 06/17/21 07:10 06/17/21 07:10 Medications Medications Current Medications Generic Name Dose Route Start Last Admin Trade Name Freq PRN Reason Stop Dose Admin Acetaminophen 650 mg 06/16/21 17:23 Acetaminophen 325 Mg Tablet PO Q6H PRN Headache/Pain Mild Scale (1-3) Al Hydroxide/Mg Hydroxide 30 ml 06/16/21 17:23 Magnesium Hydrox/Alum Hydrox 30 Ml Oral.Susp PO Q6H PRN Heartburn/Nausea Folic Acid 1 mg 06/17/21 09:00 06/26/21 08:06 Folic Acid 1 Mg Tablet PO 1 mg DAILY GUERO Administration Lidocaine 1 patch 06/17/21 09:00 06/26/21 08:21 Lidocaine 4 % Patch Adh..Patch TRANSDERMA Not Given DAILY GUERO Lorazepam 0.25 mg 06/18/21 12:40 06/24/21 19:24 Lorazepam 0.5 Mg Tablet PO 0.25 mg Q8H PRN Administration Anxiety Magnesium Hydroxide 30 ml 06/16/21 17:23 Milk Of Magnesia 30 Ml Oral.Susp PO DAILY PRN Constipation Mirtazapine 15 mg 06/22/21 21:00 06/25/21 20:07 Mirtazapine 15 Mg Tablet PO 15 mg BEDTIME GUERO Administration Multivitamins/Vitamin C 1 tab 06/17/21 09:00 06/26/21 08:06 Multivitamin Tablet PO 1 tab DAILY GUERO Administration Olanzapine 5 mg 06/17/21 21:00 06/25/21 20:07 Olanzapine 5 Mg Tablet PO 5 mg BEDTIME GUERO Administration Thiamine HCl 100 mg 06/17/21 09:00 06/26/21 08:06 Thiamine Hcl 100 Mg Tablet PO 100 mg DAILY GUERO Administration Trazodone HCl 100 mg 06/22/21 14:00 Trazodone Hcl 100 Mg Tablet PO BEDTIME PRN Insomnia Allergies Allergies Allergy/AdvReac Type Severity Reaction Status Date / Time acetaminophen [From Percocet] Allergy Unknown Verified 06/16/21 16:20 clotrimazole Allergy Unknown Verified 06/16/21 16:20 oxycodone [From Percocet] Allergy Unknown Verified 06/16/21 16:20 paroxetine Allergy Unknown Verified 06/16/21 16:20 sulfamethoxazole Allergy Unknown Verified 06/16/21 16:20 [From Sulfamethoxazole-Trimethoprim] trimethoprim Allergy Unknown Verified 06/16/21 16:20 [From Sulfamethoxazole-Trimethoprim] Assessment & Plan Assessment & Plan (1) Dementia associated with other underlying disease with behavioral disturbance: Status: Acute Code(s): F02.81 - Dementia in other diseases classified elsewhere with behavioral disturbance Assessment and Plan: 1. Dementia with behavioral disturbances: Patient being managed the psychiatric unit. On Zyprexa and mirtazapine. Encourage to take medication. zyprexa dosing increased to 7.5 mg QHS as of 06/26 due to clear paranoid delusions. 2. History of lung cancer status post radiation: As per [facility] paper work brain mri neg in april/2021. Consider getting further information from PCP, try to call the -he could not able to provide information. 3. Referral to SNF Greater than 50% of the session was spent on counseling and/or coordination of care Reason for contiued inpatient stay Substantial Risk for: inability to function and rapid decompensation
[2021-06-26] MEDS: Mirtazapine 15 MG TABLET PO (21:24)
[2021-06-26] MEDS: OLANZapine 7.5 MG TABLET PO (21:24)
[2021-06-27 06:00] VITALS: BP 100/60; PULSE 83; TEMP 37.1; O2SAT 97
[2021-06-27] MEDS: Folic Acid 1 MG TABLET PO (07:59)
[2021-06-27] MEDS: Thiamine HCL 100 MG TABLET PO (07:59)
[2021-06-27] MEDS: Multivitamin TABLET 1 TAB PO (07:59)
--- NOTE | 2021-06-27 11:13 | P.PNPSI_ITS ---
Subjective Subjective Date of Service: 06/27/21 Reason For Visit: depression Interim History: pt is seen in her room, where she is lying in bed late morning. she has no requests or complaints for MD. she is informed regular staff will return tomorrow to pick up man care. per staff, no issues in the past day. mihir, attended group this morning, however, which is a change. Mental Status Exam Mental Status Exam Narrative: dressed appropriately. somewhat disheveled. no PMA/PMR. lucy ative. speech nml in rate, amount, loudness, latency. decr prosody. thoughts linear and illogical. affect constricted, hypo-intense, non-labile. no SI/HI/AVH expressed. Diagnostics Vital Signs (24Hr): Vital Signs - 24 hr 06/27/21 06:00 Temperature 98.7 F Pulse Rate 83 Blood Pressure 100/60 Pulse Oximetry 97 Body Mass Index 15.7 Labs Results: 06/17/21 07:10 06/17/21 07:10 Medications Medications Current Medications Generic Name Dose Route Start Last Admin Trade Name Freq PRN Reason Stop Dose Admin Acetaminophen 650 mg 06/16/21 17:23 Acetaminophen 325 Mg Tablet PO Q6H PRN Headache/Pain Mild Scale (1-3) Al Hydroxide/Mg Hydroxide 30 ml 06/16/21 17:23 Magnesium Hydrox/Alum Hydrox 30 Ml Oral.Susp PO Q6H PRN Heartburn/Nausea Folic Acid 1 mg 06/17/21 09:00 06/27/21 07:59 Folic Acid 1 Mg Tablet PO 1 mg DAILY GUERO Administration Lidocaine 1 patch 06/17/21 09:00 06/27/21 09:15 Lidocaine 4 % Patch Adh..Patch TRANSDERMA Not Given DAILY GUERO Lorazepam 0.25 mg 06/18/21 12:40 06/24/21 19:24 Lorazepam 0.5 Mg Tablet PO 0.25 mg Q8H PRN Administration Anxiety Magnesium Hydroxide 30 ml 06/16/21 17:23 Milk Of Magnesia 30 Ml Oral.Susp PO DAILY PRN Constipation Mirtazapine 15 mg 06/22/21 21:00 06/26/21 21:24 Mirtazapine 15 Mg Tablet PO 15 mg BEDTIME GUERO Administration Multivitamins/Vitamin C 1 tab 06/17/21 09:00 06/27/21 07:59 Multivitamin Tablet PO 1 tab DAILY GUERO Administration Olanzapine 7.5 mg 06/26/21 21:00 06/26/21 21:24 Olanzapine 7.5 Mg Tablet PO 7.5 mg BEDTIME GUERO Administration Thiamine HCl 100 mg 06/17/21 09:00 06/27/21 07:59 Thiamine Hcl 100 Mg Tablet PO 100 mg DAILY GUERO Administration Trazodone HCl 100 mg 06/22/21 14:00 Trazodone Hcl 100 Mg Tablet PO BEDTIME PRN Insomnia Allergies Allergies Allergy/AdvReac Type Severity Reaction Status Date / Time acetaminophen [From Percocet] Allergy Unknown Verified 06/16/21 16:20 clotrimazole Allergy Unknown Verified 06/16/21 16:20 oxycodone [From Percocet] Allergy Unknown Verified 06/16/21 16:20 paroxetine Allergy Unknown Verified 06/16/21 16:20 sulfamethoxazole Allergy Unknown Verified 06/16/21 16:20 [From Sulfamethoxazole-Trimethoprim] trimethoprim Allergy Unknown Verified 06/16/21 16:20 [From Sulfamethoxazole-Trimethoprim] Assessment & Plan Assessment & Plan (1) Dementia associated with other underlying disease with behavioral disturbance: Status: Acute Code(s): F02.81 - Dementia in other diseases classified elsewhere with behavioral disturbance Assessment and Plan: 1. Dementia with behavioral disturbances: Patient being managed the psychiatric unit. On Zyprexa and mirtazapine. Encourage to take medication. zyprexa dosing increased to 7.5 mg QHS as of 06/26 due to clear paranoid delusions. 2. History of lung cancer status post radiation: As per [facility] paper work brain mri neg in april/2021. Consider getting further information from PCP, try to call the -he could not able to provide information. 3. Referral to SNF Greater than 50% of the session was spent on counseling and/or coordination of care Reason for contiued inpatient stay Substantial Risk for: inability to function
[2021-06-27 18:00] VITALS: BP 100/60; PULSE 93; TEMP 36.6; O2SAT 96
[2021-06-27] MEDS: Mirtazapine 15 MG TABLET PO (20:25)
[2021-06-27] MEDS: OLANZapine 7.5 MG TABLET PO (20:25)
[2021-06-28] MEDS: Folic Acid 1 MG TABLET PO (09:21)
[2021-06-28] MEDS: Multivitamin TABLET 1 TAB PO (09:21)
[2021-06-28] MEDS: Thiamine HCL 100 MG TABLET PO (09:21)
[2021-06-28] MEDS: LORazepam 0.5 MG TABLET 0.25 MG PO (16:55)
[2021-06-28 17:37] VITALS: BP 91/44; PULSE 89; RESP 16; TEMP 36.4; O2SAT 98
--- NOTE | 2021-06-28 18:47 | PC.NURSE ---
Patient is alert and oriented x 3. She showers with staff assistance and attends groups throughout the day. She actively participates in groups and is complimentary towards other patients but remains profoundly negative surrounding her own accomplishments and status. Patient is isolative to self when not engaged in groups.
[2021-06-28] MEDS: OLANZapine 7.5 MG TABLET PO (19:53)
[2021-06-28] MEDS: Mirtazapine 15 MG TABLET PO (19:53)
[2021-06-29 10:26] VITALS: BP 106/57; PULSE 95; RESP 18; TEMP 37.1; O2SAT 96
[2021-06-29] MEDS: Thiamine HCL 100 MG TABLET PO (10:27)
[2021-06-29] MEDS: LORazepam 0.5 MG TABLET 0.25 MG PO ×2 (10:27→16:09)
[2021-06-29] MEDS: Folic Acid 1 MG TABLET PO (10:28)
[2021-06-29] MEDS: Multivitamin TABLET 1 TAB PO (10:28)
[2021-06-29] MEDS: Magnesium Hydrox/Alum Hydrox 30 ML ORAL.SUSP PO (14:00)
--- NOTE | 2021-06-29 15:54 | P.PNPSI_ITS ---
Subjective Subjective Date of Service: 06/30/21 Reason For Visit: depression Interim History: The patient has attended to groups but her attitude is very negative. The staff has realized that she thrives well on a structured groups. Review of Systems Acute medical concerns: No Medical Review of Systems: unchanged Mental Status Exam Mental Status Exam Patient Appearance: Well Grooomed (very thin) Patient Orientation: Person, Place, Time and Situation Level of Consciousness: Awake Patient Behavior: Avoidant Mood Description: Suspicious Affect Description: Constricted and Depressed Patient Cognition Impaired: Yes Ability to Follow Directions: Fair Speech Pattern: Clear Hallucinations: None Delusions: Paranoid Ideation Thought Process: Distracted Thought Content: positive for Circumstantial Depressive Symptoms: Increased Anxiety Judgement: Fair Diagnostics Vital Signs (24Hr): Vital Signs - 24 hr 06/28/21 17:37 06/29/21 10:26 Temperature 97.5 F 98.8 F Pulse Rate 89 95 Respiratory Rate 16 18 Blood Pressure 91/44 L 106/57 L Pulse Oximetry 98 96 Body Mass Index 15.7 Labs Results: 06/17/21 07:10 06/17/21 07:10 Medications Medications Current Medications Generic Name Dose Route Start Last Admin Trade Name Freq PRN Reason Stop Dose Admin Acetaminophen 650 mg 06/16/21 17:23 Acetaminophen 325 Mg Tablet PO Q6H PRN Headache/Pain Mild Scale (1-3) Al Hydroxide/Mg Hydroxide 30 ml 06/16/21 17:23 06/29/21 14:00 Magnesium Hydrox/Alum Hydrox 30 Ml Oral.Susp PO 30 ml Q6H PRN Administration Heartburn/Nausea Folic Acid 1 mg 06/17/21 09:00 06/29/21 10:28 Folic Acid 1 Mg Tablet PO 1 mg DAILY GUERO Administration Lidocaine 1 patch 06/17/21 09:00 06/29/21 10:55 Lidocaine 4 % Patch Adh..Patch TRANSDERMA Not Given DAILY GUERO Lorazepam 0.25 mg 06/28/21 14:45 06/29/21 10:27 Lorazepam 0.5 Mg Tablet PO 0.25 mg Q6H PRN Administration Anxiety Magnesium Hydroxide 30 ml 06/16/21 17:23 Milk Of Magnesia 30 Ml Oral.Susp PO DAILY PRN Constipation Mirtazapine 15 mg 06/22/21 21:00 06/28/21 19:53 Mirtazapine 15 Mg Tablet PO 15 mg BEDTIME GUERO Administration Multivitamins/Vitamin C 1 tab 06/17/21 09:00 06/29/21 10:28 Multivitamin Tablet PO 1 tab DAILY GUERO Administration Olanzapine 7.5 mg 06/26/21 21:00 06/28/21 19:53 Olanzapine 7.5 Mg Tablet PO 7.5 mg BEDTIME GUERO Administration Thiamine HCl 100 mg 06/17/21 09:00 06/29/21 10:27 Thiamine Hcl 100 Mg Tablet PO 100 mg DAILY GUERO Administration Trazodone HCl 100 mg 06/22/21 14:00 Trazodone Hcl 100 Mg Tablet PO BEDTIME PRN Insomnia Allergies Allergies Allergy/AdvReac Type Severity Reaction Status Date / Time acetaminophen [From Percocet] Allergy Unknown Verified 06/16/21 16:20 clotrimazole Allergy Unknown Verified 06/16/21 16:20 oxycodone [From Percocet] Allergy Unknown Verified 06/16/21 16:20 paroxetine Allergy Unknown Verified 06/16/21 16:20 sulfamethoxazole Allergy Unknown Verified 06/16/21 16:20 [From Sulfamethoxazole-Trimethoprim] trimethoprim Allergy Unknown Verified 06/16/21 16:20 [From Sulfamethoxazole-Trimethoprim] Assessment & Plan Assessment & Plan (1) Dementia associated with other underlying disease with behavioral disturbance: Status: Acute Code(s): F02.81 - Dementia in other diseases classified elsewhere with behavioral disturbance Assessment and Plan: 1. Dementia with behavioral disturbances: Patient being managed the psychiatric unit. On Zyprexa and mirtazapine. Encourage to take medication. zyprexa dosing increased to 7.5 mg QHS as of 06/26 due to clear paranoid delusions. 2. History of lung cancer status post radiation: As per [facility] paper work brain mri neg in april/2021. Consider getting further information from PCP, try to call the -he could not able to provide information. 3. Referral to SNF Greater than 50% of the session was spent on counseling and/or coordination of care Reason for contiued inpatient stay Substantial Risk for: inability to function, rapid decompensation and med/psych decompensation
[2021-06-29 18:00] VITALS: BP 99/54; PULSE 87; TEMP 37; O2SAT 99
[2021-06-29] MEDS: OLANZapine 7.5 MG TABLET PO (19:38)
[2021-06-29] MEDS: Mirtazapine 15 MG TABLET PO (19:47)
[2021-06-30] MEDS: LORazepam 0.5 MG TABLET 0.25 MG PO ×2 (09:04→17:09)
[2021-06-30] MEDS: Multivitamin TABLET 1 TAB PO (09:05)
[2021-06-30] MEDS: Folic Acid 1 MG TABLET PO (09:05)
[2021-06-30] MEDS: Thiamine HCL 100 MG TABLET PO (09:05)
--- NOTE | 2021-06-30 13:51 | HO.PSYCHPN ---
Subjective Subjective Date of Service: 06/30/21 Reason For Visit: depression Interim History: The patient remains negative under sporadically oppositional with staff. The staff has noticed that Ativan helps her irritability. The patient does not want to take t.i.d. is scheduled but she agreed to take p.r.n. Medication Compliance: Yes Side effects from medications: No Attending Groups: Intermittent Review of Systems Acute medical concerns: No Medical Review of Systems: unchanged Mental Status Exam Mental Status Exam Patient Appearance: Well Grooomed (Very thin) Patient Orientation: Person Level of Consciousness: Awake Patient Behavior: Guarded, Suspicious and Timid Mood Description: Withdrawn Affect Description: Constricted Patient Cognition Impaired: Yes Ability to Follow Directions: Good Speech Pattern: Clear Hallucinations: None Delusions: Paranoid Ideation Thought Process: Evasive Thought Content: positive for Perseveration and positive for Poverty of Content Judgement: Fair Diagnostics Vital Signs (24Hr): Vital Signs - 24 hr 06/29/21 18:00 Temperature 98.6 F Pulse Rate 87 Blood Pressure 99/54 L Pulse Oximetry 99 Body Mass Index 15.7 Labs Results: 06/17/21 07:10 06/17/21 07:10 Medications Medications Current Medications Generic Name Dose Route Start Last Admin Trade Name Freq PRN Reason Stop Dose Admin Acetaminophen 650 mg 06/16/21 17:23 Acetaminophen 325 Mg Tablet PO Q6H PRN Headache/Pain Mild Scale (1-3) Al Hydroxide/Mg Hydroxide 30 ml 06/16/21 17:23 06/29/21 14:00 Magnesium Hydrox/Alum Hydrox 30 Ml Oral.Susp PO 30 ml Q6H PRN Administration Heartburn/Nausea Folic Acid 1 mg 06/17/21 09:00 06/30/21 09:05 Folic Acid 1 Mg Tablet PO 1 mg DAILY GUERO Administration Lidocaine 1 patch 06/17/21 09:00 06/30/21 09:15 Lidocaine 4 % Patch Adh..Patch TRANSDERMA Not Given DAILY GUERO Lorazepam 0.25 mg 06/28/21 14:45 06/30/21 09:04 Lorazepam 0.5 Mg Tablet PO 0.25 mg Q6H PRN Administration Anxiety Magnesium Hydroxide 30 ml 06/16/21 17:23 Milk Of Magnesia 30 Ml Oral.Susp PO DAILY PRN Constipation Mirtazapine 15 mg 06/22/21 21:00 06/29/21 19:47 Mirtazapine 15 Mg Tablet PO 15 mg BEDTIME GUERO Administration Multivitamins/Vitamin C 1 tab 06/17/21 09:00 06/30/21 09:05 Multivitamin Tablet PO 1 tab DAILY GUERO Administration Olanzapine 7.5 mg 06/26/21 21:00 06/29/21 19:38 Olanzapine 7.5 Mg Tablet PO 7.5 mg BEDTIME GUERO Administration Thiamine HCl 100 mg 06/17/21 09:00 06/30/21 09:05 Thiamine Hcl 100 Mg Tablet PO 100 mg DAILY GUERO Administration Trazodone HCl 100 mg 06/22/21 14:00 Trazodone Hcl 100 Mg Tablet PO BEDTIME PRN Insomnia Allergies Allergies Allergy/AdvReac Type Severity Reaction Status Date / Time acetaminophen [From Percocet] Allergy Unknown Verified 06/16/21 16:20 clotrimazole Allergy Unknown Verified 06/16/21 16:20 oxycodone [From Percocet] Allergy Unknown Verified 06/16/21 16:20 paroxetine Allergy Unknown Verified 06/16/21 16:20 sulfamethoxazole Allergy Unknown Verified 06/16/21 16:20 [From Sulfamethoxazole-Trimethoprim] trimethoprim Allergy Unknown Verified 06/16/21 16:20 [From Sulfamethoxazole-Trimethoprim] Assessment & Plan Assessment & Plan (1) Dementia associated with other underlying disease with behavioral disturbance: Status: Acute Code(s): F02.81 - Dementia in other diseases classified elsewhere with behavioral disturbance Assessment and Plan: 1. Dementia with behavioral disturbances: Patient being managed the psychiatric unit. On Zyprexa and mirtazapine. Encourage to take medication. zyprexa dosing increased to 7.5 mg QHS as of 06/26 due to clear paranoid delusions. 2. History of lung cancer status post radiation: As per [facility] paper work brain mri neg in april/2021. Consider getting further information from PCP, try to call the -he could not able to provide information. 3. Referral to SNF Greater than 50% of the session was spent on counseling and/or coordination of care Reason for contiued inpatient stay Substantial Risk for: inability to function, rapid decompensation and med/psych decompensation
[2021-06-30 18:34] VITALS: BP 90/45; PULSE 97; RESP 17; TEMP 36.6; O2SAT 95
[2021-06-30] MEDS: OLANZapine 7.5 MG TABLET PO (20:37)
[2021-06-30] MEDS: Mirtazapine 15 MG TABLET PO (20:37)
[2021-06-30] MEDS: Magnesium Hydrox/Alum Hydrox 30 ML ORAL.SUSP PO (20:55)
[2021-07-01 07:00] VITALS: BMI 16.5
[2021-07-01] MEDS: Magnesium Hydrox/Alum Hydrox 30 ML ORAL.SUSP PO ×2 (09:12→15:45)
[2021-07-01] MEDS: LORazepam 0.5 MG TABLET 0.25 MG PO ×2 (09:13→14:20)
[2021-07-01] MEDS: Thiamine HCL 100 MG TABLET PO (09:13)
[2021-07-01] MEDS: Acetaminophen 325 MG TABLET 650 MG PO (09:13)
[2021-07-01] MEDS: Folic Acid 1 MG TABLET PO (09:13)
[2021-07-01] MEDS: Multivitamin TABLET 1 TAB PO (09:13)
[2021-07-01] MEDS: Lidocaine 4 % Patch ADH..PATCH 1 PATCH TRANSDERMA (09:16)
--- NOTE | 2021-07-01 12:45 | P.PNPSI_ITS ---
Subjective Subjective Date of Service: 07/01/21 Reason For Visit: depression Subjective Notes: Conditional Voluntary Interim History: The patient was doing better today in the morning with Ativan. She was seen less negative yesterday in the afternoon. She was referred to [facility] by private pay since she has resources. Review of Systems Acute medical concerns: No Medical Review of Systems: unchanged Mental Status Exam Mental Status Exam Patient Appearance: Well Grooomed (very thin) Patient Orientation: Person, Place and Situation Level of Consciousness: Awake Patient Behavior: Appropriate Mood Description: Withdrawn Affect Description: Constricted Patient Cognition Impaired: No Ability to Follow Directions: Good Speech Pattern: Clear Hallucinations: None Delusions: Paranoid Ideation Thought Process: Evasive Thought Content: positive for Circumstantial Judgement: Fair Diagnostics Vital Signs (24Hr): Vital Signs - 24 hr 06/30/21 18:34 Temperature 97.9 F Pulse Rate 97 Respiratory Rate 17 Blood Pressure 90/45 L Pulse Oximetry 95 Body Mass Index 15.7 Labs Results: 06/17/21 07:10 06/17/21 07:10 Medications Medications Current Medications Generic Name Dose Route Start Last Admin Trade Name Freq PRN Reason Stop Dose Admin Acetaminophen 650 mg 06/16/21 17:23 07/01/21 09:13 Acetaminophen 325 Mg Tablet PO 650 mg Q6H PRN Administration Headache/Pain Mild Scale (1-3) Al Hydroxide/Mg Hydroxide 30 ml 06/16/21 17:23 07/01/21 09:12 Magnesium Hydrox/Alum Hydrox 30 Ml Oral.Susp PO 30 ml Q6H PRN Administration Heartburn/Nausea Folic Acid 1 mg 06/17/21 09:00 07/01/21 09:13 Folic Acid 1 Mg Tablet PO 1 mg DAILY GUERO Administration Lidocaine 1 patch 06/17/21 09:00 07/01/21 09:16 Lidocaine 4 % Patch Adh..Patch TRANSDERMA 1 patch DAILY GUERO Administration Lorazepam 0.25 mg 06/28/21 14:45 07/01/21 09:13 Lorazepam 0.5 Mg Tablet PO 0.25 mg Q6H PRN Administration Anxiety Magnesium Hydroxide 30 ml 06/16/21 17:23 Milk Of Magnesia 30 Ml Oral.Susp PO DAILY PRN Constipation Mirtazapine 15 mg 06/22/21 21:00 06/30/21 20:37 Mirtazapine 15 Mg Tablet PO 15 mg BEDTIME GUERO Administration Multivitamins/Vitamin C 1 tab 06/17/21 09:00 07/01/21 09:13 Multivitamin Tablet PO 1 tab DAILY GUERO Administration Olanzapine 7.5 mg 06/26/21 21:00 06/30/21 20:37 Olanzapine 7.5 Mg Tablet PO 7.5 mg BEDTIME GUERO Administration Thiamine HCl 100 mg 06/17/21 09:00 07/01/21 09:13 Thiamine Hcl 100 Mg Tablet PO 100 mg DAILY GUERO Administration Trazodone HCl 100 mg 06/22/21 14:00 Trazodone Hcl 100 Mg Tablet PO BEDTIME PRN Insomnia Allergies Allergies Allergy/AdvReac Type Severity Reaction Status Date / Time acetaminophen [From Percocet] Allergy Unknown Verified 06/16/21 16:20 clotrimazole Allergy Unknown Verified 06/16/21 16:20 oxycodone [From Percocet] Allergy Unknown Verified 06/16/21 16:20 paroxetine Allergy Unknown Verified 06/16/21 16:20 sulfamethoxazole Allergy Unknown Verified 06/16/21 16:20 [From Sulfamethoxazole-Trimethoprim] trimethoprim Allergy Unknown Verified 06/16/21 16:20 [From Sulfamethoxazole-Trimethoprim] Assessment & Plan Assessment & Plan (1) Dementia associated with other underlying disease with behavioral disturbance: Status: Acute Code(s): F02.81 - Dementia in other diseases classified elsewhere with behavioral disturbance Assessment and Plan: 1. Dementia with behavioral disturbances: Patient being managed the psychiatric unit. On Zyprexa and mirtazapine. Encourage to take medication. zyprexa dosing incr eased to 7.5 mg QHS as of 06/26 due to clear paranoid delusions. Ativan will be changed to tid schedule. 2. History of lung cancer status post radiation: As per [facility] paper work brain mri neg in april/2021. Consider getting further information from PCP, try to call the -he could not able to provide information. 3. Referral to SNF Greater than 50% of the session was spent on counseling and/or coordination of care Reason for contiued inpatient stay Substantial Risk for: inability to function, rapid decompensation and med/psych decompensation
[2021-07-01 17:51] VITALS: BP 112/55; PULSE 91; RESP 17; TEMP 36.6; O2SAT 98
[2021-07-02] MEDS: Multivitamin TABLET 1 TAB PO (08:00)
[2021-07-02] MEDS: LORazepam 0.5 MG TABLET 0.25 MG PO ×2 (08:00→22:53)
[2021-07-02] MEDS: Thiamine HCL 100 MG TABLET PO (08:01)
[2021-07-02] MEDS: Folic Acid 1 MG TABLET PO (08:01)
[2021-07-02] MEDS: Magnesium Hydrox/Alum Hydrox 30 ML ORAL.SUSP PO (11:17)
--- NOTE | 2021-07-02 11:48 | HO.PSYCHPN ---
Subjective Subjective Date of Service: 07/02/21 Reason For Visit: depression Interim History: The patient attended to a few groups but she has been negative and pesimistic. As per nursing staff, she has gained 5 lb. Medication Compliance: Yes Attending Groups: Intermittent Review of Systems Acute medical concerns: No Medical Review of Systems: unchanged Mental Status Exam Mental Status Exam Patient Appearance: Well Grooomed Patient Orientation: Person, Place and Situation Level of Consciousness: Awake Patient Behavior: Guarded and Good Eye Contact Mood Description: Depressed Affect Description: Constricted Patient Cognition Impaired: Yes Ability to Follow Directions: Good Speech Pattern: Clear Memory Description: Normal for Patient Hallucinations: None Delusions: Paranoid Ideation Thought Process: Linear and Evasive Thought Content: positive for Perseveration and positive for Poverty of Content Depressive Symptoms: Feelings of Worthlessness Judgement: Fair Diagnostics Vital Signs (24Hr): Vital Signs - 24 hr 07/01/21 17:51 Temperature 97.9 F Pulse Rate 91 Respiratory Rate 17 Blood Pressure 112/55 L Pulse Oximetry 98 Body Mass Index 16.5 Labs Results: 06/17/21 07:10 06/17/21 07:10 Medications Medications Current Medications Generic Name Dose Route Start Last Admin Trade Name Freq PRN Reason Stop Dose Admin Acetaminophen 650 mg 06/16/21 17:23 07/01/21 09:13 Acetaminophen 325 Mg Tablet PO 650 mg Q6H PRN Administration Headache/Pain Mild Scale (1-3) Al Hydroxide/Mg Hydroxide 30 ml 06/16/21 17:23 07/02/21 11:17 Magnesium Hydrox/Alum Hydrox 30 Ml Oral.Susp PO 30 ml Q6H PRN Administration Heartburn/Nausea Folic Acid 1 mg 06/17/21 09:00 07/02/21 08:01 Folic Acid 1 Mg Tablet PO 1 mg DAILY GUERO Administration Lidocaine 1 patch 06/17/21 09:00 07/02/21 08:01 Lidocaine 4 % Patch Adh..Patch TRANSDERMA Not Given DAILY GUERO Lorazepam 0.25 mg 06/28/21 14:45 07/01/21 09:13 Lorazepam 0.5 Mg Tablet PO 0.25 mg Q6H PRN Administration Anxiety Lorazepam 0.25 mg 07/01/21 15:00 07/02/21 08:00 Lorazepam 0.5 Mg Tablet PO 0.25 mg TID GUERO Administration Magnesium Hydroxide 30 ml 06/16/21 17:23 Milk Of Magnesia 30 Ml Oral.Susp PO DAILY PRN Constipation Mirtazapine 15 mg 06/22/21 21:00 07/01/21 20:13 Mirtazapine 15 Mg Tablet PO Not Given BEDTIME GUERO Multivitamins/Vitamin C 1 tab 06/17/21 09:00 07/02/21 08:00 Multivitamin Tablet PO 1 tab DAILY GUERO Administration Olanzapine 7.5 mg 06/26/21 21:00 07/01/21 20:13 Olanzapine 7.5 Mg Tablet PO Not Given BEDTIME GUERO Thiamine HCl 100 mg 06/17/21 09:00 07/02/21 08:01 Thiamine Hcl 100 Mg Tablet PO 100 mg DAILY GUERO Administration Trazodone HCl 100 mg 06/22/21 14:00 Trazodone Hcl 100 Mg Tablet PO BEDTIME PRN Insomnia Allergies Allergies Allergy/AdvReac Type Severity Reaction Status Date / Time acetaminophen [From Percocet] Allergy Unknown Verified 06/16/21 16:20 clotrimazole Allergy Unknown Verified 06/16/21 16:20 oxycodone [From Percocet] Allergy Unknown Verified 06/16/21 16:20 paroxetine Allergy Unknown Verified 06/16/21 16:20 sulfamethoxazole Allergy Unknown Verified 06/16/21 16:20 [From Sulfamethoxazole-Trimethoprim] trimethoprim Allergy Unknown Verified 06/16/21 16:20 [From Sulfamethoxazole-Trimethoprim] Assessment & Plan Assessment & Plan (1) Dementia associated with other underlying disease with behavioral disturbance: Status: Acute Code(s): F02.81 - Dementia in other diseases classified elsewhere with behavioral disturbance Assessment and Plan: 1. Dementia with behavioral disturbances: Patient being managed the psychiatric unit. On Zyprexa and mirtazapine. Encourage to take medication. zyprexa dosing increased to 7.5 mg QHS as of 06/26 due to clear paranoid delusions. Ativan will be changed to tid schedule. 2. History of lung cancer status post radiation: As per [facility] paper work brain mri neg in april/2021. Consider getting further information from PCP, try to call the -he could not able to provide information. 3. Referral to SNF Greater than 50% of the session was spent on counseling and/or coordination of care Reason for contiued inpatient stay Substantial Risk for: inability to function, rapid decompensation and med/psych decompensation
--- NOTE | 2021-07-02 15:56 | MHC.CLN ---
FOLLOW UP VISITED WITH PATIENT AND NEGATIVE ABOUT HER ABILITY TO EAT AND SUPPLEMENT. PER NURSING, PATIENT EATS VERY WELL AND DRINKS ENSURE. HAS FAVORABLE, SIGNIFICANT WEIGHT GAIN SINCE ADMISSION, +8#, 8.4%. BMI=16.6, UNDERWEIGHT.
[2021-07-02] MEDS: OLANZapine 7.5 MG TABLET PO (22:53)
[2021-07-02] MEDS: Mirtazapine 15 MG TABLET PO (22:53)
[2021-07-03 06:00] VITALS: BP 90/55; PULSE 111; RESP 16; TEMP 36.8; O2SAT 97
[2021-07-03] MEDS: Folic Acid 1 MG TABLET PO (08:50)
[2021-07-03] MEDS: LORazepam 0.5 MG TABLET 0.25 MG PO ×3 (08:50→20:32)
[2021-07-03] MEDS: Thiamine HCL 100 MG TABLET PO (08:51)
[2021-07-03] MEDS: Multivitamin TABLET 1 TAB PO (08:51)
--- NOTE | 2021-07-03 09:54 | P.PNPSI_ITS ---
Subjective Subjective Date of Service: 07/03/21 Reason For Visit: depression Subjective Notes: Conditional Voluntary Interim History: The patient has negative thoughts even though that she has gained 5 lb. She denies new symptoms, remains isolative at times. Review of Systems Acute medical concerns: No Medical Review of Systems: unchanged Mental Status Exam Mental Status Exam Patient Appearance: Well Grooomed Patient Orientation: Person, Place and Situation Level of Consciousness: Awake Patient Behavior: Passive Mood Description: Calm Affect Description: Calm Ability to Follow Directions: Good Speech Pattern: Clear Hallucinations: None Delusions: Not Present Thought Process: Evasive Thought Content: positive for Goal Oriented Judgement: Fair Diagnostics Vital Signs (24Hr): Vital Signs - 24 hr 07/03/21 06:00 Temperature 98.3 F Pulse Rate 111 H Respiratory Rate 16 Blood Pressure 90/55 L Pulse Oximetry 97 Body Mass Index 16.5 Labs Results: 06/17/21 07:10 06/17/21 07:10 Medications Medications Current Medications Generic Name Dose Route Start Last Admin Trade Name Freq PRN Reason Stop Dose Admin Acetaminophen 650 mg 06/16/21 17:23 07/01/21 09:13 Acetaminophen 325 Mg Tablet PO 650 mg Q6H PRN Administration Headache/Pain Mild Scale (1-3) Al Hydroxide/Mg Hydroxide 30 ml 06/16/21 17:23 07/02/21 11:17 Magnesium Hydrox/Alum Hydrox 30 Ml Oral.Susp PO 30 ml Q6H PRN Administration Heartburn/Nausea Folic Acid 1 mg 06/17/21 09:00 07/03/21 08:50 Folic Acid 1 Mg Tablet PO 1 mg DAILY GUERO Administration Lidocaine 1 patch 06/17/21 09:00 07/02/21 08:01 Lidocaine 4 % Patch Adh..Patch TRANSDERMA Not Given DAILY GUERO Lorazepam 0.25 mg 06/28/21 14:45 07/01/21 09:13 Lorazepam 0.5 Mg Tablet PO 0.25 mg Q6H PRN Administration Anxiety Lorazepam 0.25 mg 07/01/21 15:00 07/03/21 08:50 Lorazepam 0.5 Mg Tablet PO 0.25 mg TID GUERO Administration Magnesium Hydroxide 30 ml 06/16/21 17:23 Milk Of Magnesia 30 Ml Oral.Susp PO DAILY PRN Constipation Mirtazapine 15 mg 06/22/21 21:00 07/02/21 22:53 Mirtazapine 15 Mg Tablet PO 15 mg BEDTIME GUERO Administration Multivitamins/Vitamin C 1 tab 06/17/21 09:00 07/03/21 08:51 Multivitamin Tablet PO 1 tab DAILY GUERO Administration Olanzapine 7.5 mg 06/26/21 21:00 07/02/21 22:53 Olanzapine 7.5 Mg Tablet PO 7.5 mg BEDTIME GUERO Administration Thiamine HCl 100 mg 06/17/21 09:00 07/03/21 08:51 Thiamine Hcl 100 Mg Tablet PO 100 mg DAILY GUERO Administration Trazodone HCl 100 mg 06/22/21 14:00 Trazodone Hcl 100 Mg Tablet PO BEDTIME PRN Insomnia Allergies Allergies Allergy/AdvReac Type Severity Reaction Status Date / Time acetaminophen [From Percocet] Allergy Unknown Verified 06/16/21 16:20 clotrimazole Allergy Unknown Verified 06/16/21 16:20 oxycodone [From Percocet] Allergy Unknown Verified 06/16/21 16:20 paroxetine Allergy Unknown Verified 06/16/21 16:20 sulfamethoxazole Allergy Unknown Verified 06/16/21 16:20 [From Sulfamethoxazole-Trimethoprim] trimethoprim Allergy Unknown Verified 06/16/21 16:20 [From Sulfamethoxazole-Trimethoprim] Assessment & Plan Assessment & Plan (1) Dementia associated with other underlying disease with behavioral disturbance: Status: Acute Code(s): F02.81 - Dementia in other diseases classified elsewhere with behavioral d isturbance Assessment and Plan: 1. Dementia with behavioral disturbances: Patient being managed the psychiatric unit. On Zyprexa and mirtazapine. Encourage to take medication. zyprexa dosing increased to 7.5 mg QHS as of 06/26 due to clear paranoid delusions. Ativan will be changed to tid schedule. 2. History of lung cancer status post radiation: As per [facility] paper work brain mri neg in april/2021. Consider getting further information from PCP, try to call the -he could not able to provide information. 3. Referral to SNF Greater than 50% of the session was spent on counseling and/or coordination of care Reason for contiued inpatient stay Substantial Risk for: inability to function, rapid decompensation and med/psych decompensation
[2021-07-03 18:00] VITALS: BP 93/47; PULSE 102; RESP 16; TEMP 36.2; O2SAT 99
[2021-07-03] MEDS: OLANZapine 7.5 MG TABLET PO (20:31)
[2021-07-03] MEDS: Mirtazapine 15 MG TABLET PO (20:32)
[2021-07-04] MEDS: Thiamine HCL 100 MG TABLET PO (08:27)
[2021-07-04] MEDS: Multivitamin TABLET 1 TAB PO (08:27)
[2021-07-04] MEDS: LORazepam 0.5 MG TABLET 0.25 MG PO ×3 (08:27→21:00)
[2021-07-04] MEDS: Acetaminophen 325 MG TABLET 650 MG PO (08:28)
[2021-07-04] MEDS: Folic Acid 1 MG TABLET PO (08:28)
[2021-07-04] MEDS: Magnesium Hydrox/Alum Hydrox 30 ML ORAL.SUSP PO (08:29)
--- NOTE | 2021-07-04 09:07 | P.PNPSI_ITS ---
Subjective Subjective Date of Service: 07/04/21 Reason For Visit: depression Subjective Notes: Conditional Voluntary Interim History: Nursing staff reported the patient slept well. Yesterday, she was visible in the unit but she did not interact with peers or staff. On interview, the patient reported that she feels pessimistic, but she is safe the unit. The patient is waiting for proper placement Review of Systems Acute medical concerns: No Medical Review of Systems: unchanged Mental Status Exam Mental Status Exam Patient Appearance: Disheveled Patient Orientation: Person, Place, Time and Situation Level of Consciousness: Awake Patient Behavior: Passive Mood Description: Depressed Affect Description: Constricted Patient Cognition Impaired: No Ability to Follow Directions: Good Speech Pattern: Clear Hallucinations: None Delusions: Not Present Thought Process: Illogical Thought Content: positive for Circumstantial Judgement: Fair Diagnostics Vital Signs (24Hr): Vital Signs - 24 hr 07/03/21 18:00 Temperature 97.2 F Pulse Rate 102 H Respiratory Rate 16 Blood Pressure 93/47 L Pulse Oximetry 99 Body Mass Index 16.5 Labs Results: 06/17/21 07:10 06/17/21 07:10 Medications Medications Current Medications Generic Name Dose Route Start Last Admin Trade Name Freq PRN Reason Stop Dose Admin Acetaminophen 650 mg 06/16/21 17:23 07/04/21 08:28 Acetaminophen 325 Mg Tablet PO 650 mg Q6H PRN Administration Headache/Pain Mild Scale (1-3) Al Hydroxide/Mg Hydroxide 30 ml 06/16/21 17:23 07/04/21 08:29 Magnesium Hydrox/Alum Hydrox 30 Ml Oral.Susp PO 30 ml Q6H PRN Administration Heartburn/Nausea Folic Acid 1 mg 06/17/21 09:00 07/04/21 08:28 Folic Acid 1 Mg Tablet PO 1 mg DAILY GUERO Administration Lidocaine 1 patch 06/17/21 09:00 07/03/21 10:03 Lidocaine 4 % Patch Adh..Patch TRANSDERMA Not Given DAILY GUERO Lorazepam 0.25 mg 07/01/21 15:00 07/04/21 08:27 Lorazepam 0.5 Mg Tablet PO 0.25 mg TID GUERO Administration Magnesium Hydroxide 30 ml 06/16/21 17:23 Milk Of Magnesia 30 Ml Oral.Susp PO DAILY PRN Constipation Mirtazapine 15 mg 06/22/21 21:00 08/14/21 20:32 Mirtazapine 15 Mg Tablet PO 15 mg BEDTIME GUERO Administration Multivitamins/Vitamin C 1 tab 06/17/21 09:00 07/04/21 08:27 Multivitamin Tablet PO 1 tab DAILY GUERO Administration Olanzapine 7.5 mg 06/26/21 21:00 07/03/21 20:31 Olanzapine 7.5 Mg Tablet PO 7.5 mg BEDTIME GUERO Administration Thiamine HCl 100 mg 06/17/21 09:00 07/04/21 08:27 Thiamine Hcl 100 Mg Tablet PO 100 mg DAILY GUERO Administration Trazodone HCl 100 mg 06/22/21 14:00 Trazodone Hcl 100 Mg Tablet PO BEDTIME PRN Insomnia Allergies Allergies Allergy/AdvReac Type Severity Reaction Status Date / Time acetaminophen [From Percocet] Allergy Unknown Verified 06/16/21 16:20 clotrimazole Allergy Unknown Verified 06/16/21 16:20 oxycodone [From Percocet] Allergy Unknown Verified 06/16/21 16:20 paroxetine Allergy Unknown Verified 06/16/21 16:20 sulfamethoxazole Allergy Unknown Verified 06/16/21 16:20 [From Sulfamethoxazole-Trimethoprim] trimethoprim Allergy Unknown Verified 06/16/21 16:20 [From Sulfamethoxazole-Trimethoprim] Assessment & Plan Assessment & Plan (1) Dementia associated with other underlying disease with behavioral disturbance: Status: Acute Code(s): F02.81 - Dementia in other diseases classified elsewhere with behavioral disturbance Assessment and Plan: 1. Dementia with behavioral disturbances: Patient being managed the psychiatric unit. On Zyprexa and mirtazapine. Encourage to take medication. zyprexa dosing increased to 7.5 mg QHS as of 06/26 due to clear paranoid delusions. Ativan will be changed to tid schedule. 2. History of lung cancer status post radiation: As per [facility] paper work brain mri neg in april/2021. Consider getting further information from PCP, try to call the -he could not able to provide information. 3. Referral to SNF Greater than 50% of the session was spent on counseling and/or coordination of care Reason for contiued inpatient stay Substantial Risk for: inability to function, rapid decompensation and med/psych decompensation
[2021-07-04 10:10] VITALS: BP 102/51; PULSE 99; RESP 18; TEMP 36.4; O2SAT 98
--- NOTE | 2021-07-04 13:03 | PC.NURSE ---
Patient is irritable and agitated in the morning hours. She states, You all are signaling each other. I'm sick of you I want to be left alone. I am not getting any better and I won't get any better. Patient presents with paranoid thought content believing staff are signaling each other in order to trick her. Patient's [place] visits. Pt. is verbally abusive towards and this commercial insurance underwriter; limits are set around the behavior and patient is presented with options to take space or end verbal abuse. She begins trying to pull her hair out, she is encouraged to stop and stops the behavior. Patient makes several statements about how she feels neither her nor staff can help her because she has so much wrong. Patient states she believes her throat needs to be cut open and examined to figure out her swallowing problem. She states there is something in my hands and my hips hurt. Patient states, I never had cancer treatment, I didn't have cancer and I don't have insurance. Patient's states he believes his has not gotten any better since being admitted, He states, She might be stabilized but she won't be for long, I still can't take care of her. Patient's is very hard of hearing and has a difficult time communicating with providers. Ela becomes tearful in the late morning hours stating I am sorry I'm a bitch. I wish I were . But I wouldn't know how to do it. Patient is provided with active listening and support.
[2021-07-04 20:58] VITALS: BP 93/55; PULSE 84; RESP 16; TEMP 37.1; O2SAT 96
[2021-07-04] MEDS: OLANZapine 7.5 MG TABLET PO (21:00)
[2021-07-04] MEDS: Mirtazapine 15 MG TABLET PO (21:00)
[2021-07-05 05:46] VITALS: BP 92/53; PULSE 82; RESP 16; TEMP 36.8; O2SAT 97
[2021-07-05] MEDS: LORazepam 0.5 MG TABLET 0.25 MG PO ×3 (08:41→19:55)
[2021-07-05] MEDS: Folic Acid 1 MG TABLET PO (08:41)
[2021-07-05] MEDS: Thiamine HCL 100 MG TABLET PO (08:41)
[2021-07-05] MEDS: Multivitamin TABLET 1 TAB PO (08:41)
--- NOTE | 2021-07-05 11:23 | HO.PSYCHPN ---
Subjective Subjective Date of Service: 07/06/21 Reason For Visit: depression Subjective Notes: Conditional Voluntary Interim History: The patient remains irritable, anxious and pesimistic, nursing staff reported that she even verbalized passive suicidal thoughts. On interview, she reported feeling as usual, tired and pesimistic. Review of Systems Acute medical concerns: No Medical Review of Systems: unchanged Mental Status Exam Mental Status Exam Patient Appearance: Well Grooomed Patient Orientation: Person and Situation Level of Consciousness: Awake Patient Behavior: Appropriate and Passive Mood Description: Suspicious and Withdrawn Affect Description: Constricted Patient Cognition Impaired: Yes Ability to Follow Directions: Good Speech Pattern: Clear Memory Description: Normal for Patient Hallucinations: None Delusions: Paranoid Ideation Thought Process: Linear Thought Content: positive for Circumstantial Judgement: Fair Diagnostics Vital Signs (24Hr): Vital Signs - 24 hr 07/04/21 20:58 07/05/21 05:46 Temperature 98.8 F 98.2 F Pulse Rate 84 82 Respiratory Rate 16 16 Blood Pressure 93/55 L 92/53 L Pulse Oximetry 96 97 Body Mass Index 16.5 Labs Results: 06/17/21 07:10 06/17/21 07:10 Medications Medications Current Medications Generic Name Dose Route Start Last Admin Trade Name Freq PRN Reason Stop Dose Admin Acetaminophen 650 mg 06/16/21 17:23 07/04/21 08:28 Acetaminophen 325 Mg Tablet PO 650 mg Q6H PRN Administration Headache/Pain Mild Scale (1-3) Al Hydroxide/Mg Hydroxide 30 ml 06/16/21 17:23 07/04/21 08:29 Magnesium Hydrox/Alum Hydrox 30 Ml Oral.Susp PO 30 ml Q6H PRN Administration Heartburn/Nausea Folic Acid 1 mg 06/17/21 09:00 07/05/21 08:41 Folic Acid 1 Mg Tablet PO 1 mg DAILY GUERO Administration Lidocaine 1 patch 06/17/21 09:00 07/05/21 08:46 Lidocaine 4 % Patch Adh..Patch TRANSDERMA Not Given DAILY GUERO Lorazepam 0.25 mg 07/01/21 15:00 07/05/21 08:41 Lorazepam 0.5 Mg Tablet PO 0.25 mg TID GUERO Administration Magnesium Hydroxide 30 ml 06/16/21 17:23 Milk Of Magnesia 30 Ml Oral.Susp PO DAILY PRN Constipation Mirtazapine 15 mg 06/22/21 21:00 07/04/21 21:00 Mirtazapine 15 Mg Tablet PO 15 mg BEDTIME GUERO Administration Multivitamins/Vitamin C 1 tab 06/17/21 09:00 07/05/21 08:41 Multivitamin Tablet PO 1 tab DAILY GUERO Administration Olanzapine 7.5 mg 06/26/21 21:00 07/04/21 21:00 Olanzapine 7.5 Mg Tablet PO 7.5 mg BEDTIME GUERO Administration Thiamine HCl 100 mg 06/17/21 09:00 07/05/21 08:41 Thiamine Hcl 100 Mg Tablet PO 100 mg DAILY GUERO Administration Trazodone HCl 100 mg 06/22/21 14:00 Trazodone Hcl 100 Mg Tablet PO BEDTIME PRN Insomnia Allergies Allergies Allergy/AdvReac Type Severity Reaction Status Date / Time acetaminophen [From Percocet] Allergy Unknown Verified 06/16/21 16:20 clotrimazole Allergy Unknown Verified 06/16/21 16:20 oxycodone [From Percocet] Allergy Unknown Verified 06/16/21 16:20 paroxetine Allergy Unknown Verified 06/16/21 16:20 sulfamethoxazole Allergy Unknown Verified 06/16/21 16:20 [From Sulfamethoxazole-Trimethoprim] trimethoprim Allergy Unknown Verified 06/16/21 16:20 [From Sulfamethoxazole-Trimethoprim] Assessment & Plan Assessment & Plan (1) Dementia associated with other underlying disease with behavioral disturbance: Status: Acute Code(s): F02.81 - Dementia in other diseases classified elsewhere with behavioral disturbance Assessment and Plan: 1. Dementia with behavioral disturbances: Patient being managed the psychiatric unit. On Zyprexa and mirtazapine. Encourage to take medication. zyprexa dosing increased to 7.5 mg QHS as of 06/26 due to clear paranoid delusions. Ativan will be changed to tid schedule. 2. History of lung cancer status post radiation: As per [facility] paper work brain mri neg in april/2021. Consider getting further information from PCP, try to call the -he could not able to provide information. 3. Referral to SNF Greater than 50% of the session was spent on counseling and/or coordination of care Reason for contiued inpatient stay Substantial Risk for: inability to function, rapid decompensation and med/psych decompensation
[2021-07-05 19:52] VITALS: BP 90/52; PULSE 100; RESP 16; TEMP 36.6; O2SAT 98
[2021-07-05] MEDS: OLANZapine 7.5 MG TABLET PO (19:55)
[2021-07-05] MEDS: Mirtazapine 15 MG TABLET PO (19:55)
[2021-07-05] MEDS: Magnesium Hydrox/Alum Hydrox 30 ML ORAL.SUSP PO (19:59)
[2021-07-06 06:02] VITALS: BP 100/58; PULSE 80; RESP 16; TEMP 37; O2SAT 96
[2021-07-06] MEDS: Thiamine HCL 100 MG TABLET PO (09:32)
[2021-07-06] MEDS: Multivitamin TABLET 1 TAB PO (09:32)
[2021-07-06] MEDS: Folic Acid 1 MG TABLET PO (09:32)
[2021-07-06] MEDS: LORazepam 0.5 MG TABLET 0.25 MG PO ×2 (09:32→14:14)
--- NOTE | 2021-07-06 12:00 | P.PNPSI_ITS ---
Subjective Subjective Date of Service: 07/06/21 Reason For Visit: depression Interim History: Nursing staff has reported the patient is cranky at times. On interview the patient denies new symptoms, she states that she is very anxious and wants a transfer soon. She remains very pessimistic. Review of Systems Acute medical concerns: No Medical Review of Systems: unchanged Mental Status Exam Mental Status Exam Patient Appearance: Well Grooomed Patient Orientation: Person, Place and Situation Level of Consciousness: Awake Patient Behavior: Suspicious Mood Description: Depressed Affect Description: Constricted Patient Cognition Impaired: No Ability to Follow Directions: Good Speech Pattern: Clear Hallucinations: None Delusions: Not Present Thought Process: Slowed Thinking Thought Content: positive for Obsessional Thoughts, positive for Perseveration and positive for Poverty of Content Judgement: Fair Diagnostics Vital Signs (24Hr): Vital Signs - 24 hr 07/05/21 19:52 07/06/21 06:02 Temperature 98 F 98.6 F Pulse Rate 100 80 Respiratory Rate 16 16 Blood Pressure 90/52 L 100/58 L Pulse Oximetry 98 96 Body Mass Index 16.5 Labs Results: 06/17/21 07:10 06/17/21 07:10 Medications Medications Current Medications Generic Name Dose Route Start Last Admin Trade Name Freq PRN Reason Stop Dose Admin Acetaminophen 650 mg 06/16/21 17:23 07/04/21 08:28 Acetaminophen 325 Mg Tablet PO 650 mg Q6H PRN Administration Headache/Pain Mild Scale (1-3) Al Hydroxide/Mg Hydroxide 30 ml 06/16/21 17:23 07/05/21 19:59 Magnesium Hydrox/Alum Hydrox 30 Ml Oral.Susp PO 30 ml Q6H PRN Administration Heartburn/Nausea Folic Acid 1 mg 06/17/21 09:00 07/06/21 09:32 Folic Acid 1 Mg Tablet PO 1 mg DAILY GUERO Administration Lidocaine 1 patch 06/17/21 09:00 07/06/21 09:33 Lidocaine 4 % Patch Adh..Patch TRANSDERMA Not Given DAILY GUERO Lorazepam 0.25 mg 07/01/21 15:00 07/06/21 09:32 Lorazepam 0.5 Mg Tablet PO 0.25 mg TID GUERO Administration Magnesium Hydroxide 30 ml 06/16/21 17:23 Milk Of Magnesia 30 Ml Oral.Susp PO DAILY PRN Constipation Mirtazapine 15 mg 06/22/21 21:00 07/05/21 19:55 Mirtazapine 15 Mg Tablet PO 15 mg BEDTIME GUERO Administration Multivitamins/Vitamin C 1 tab 06/17/21 09:00 07/06/21 09:32 Multivitamin Tablet PO 1 tab DAILY GUERO Administration Olanzapine 7.5 mg 06/26/21 21:00 07/05/21 19:55 Olanzapine 7.5 Mg Tablet PO 7.5 mg BEDTIME GUERO Administration Thiamine HCl 100 mg 06/17/21 09:00 07/06/21 09:32 Thiamine Hcl 100 Mg Tablet PO 100 mg DAILY GUERO Administration Trazodone HCl 100 mg 06/22/21 14:00 Trazodone Hcl 100 Mg Tablet PO BEDTIME PRN Insomnia Allergies Allergies Allergy/AdvReac Type Severity Reaction Status Date / Time acetaminophen [From Percocet] Allergy Unknown Verified 06/16/21 16:20 clotrimazole Allergy Unknown Verified 06/16/21 16:20 oxycodone [From Percocet] Allergy Unknown Verified 06/16/21 16:20 paroxetine Allergy Unknown Verified 06/16/21 16:20 sulfamethoxazole Allergy Unknown Verified 06/16/21 16:20 [From Sulfamethoxazole-Trimethoprim] trimethoprim Allergy Unknown Verified 06/16/21 16:20 [From Sulfamethoxazole-Trimethoprim] Assessment & Plan Assessment & Plan (1) Dementia associated with other underlying disease with behavioral disturbance: Status: Acute Code(s): F02.81 - Dementia in other diseases classified elsewhere with behavioral disturbance Assessment and Plan: 1. Dementia with behavioral disturbances: Patient being managed the psychiatric unit. On Zyprexa and mirtazapine. Encourage to take medication. zyprexa dosing increased to 7.5 mg QHS as of 06/26 due to clear paranoid delusions. Ativan will be changed to tid schedule. 2. History of lung cancer status post radiation: As per [facility] paper work brain mri neg in april/2021. Consider getting further information from PCP, try to call the -he could not able to provide information. 3. Referral to SNF Greater than 50% of the session was spent on counseling and/or coordination of care Reason for contiued inpatient stay Substantial Risk for: inability to function, rapid decompensation and med/psych decompensation
[2021-07-06 18:24] VITALS: BP 104/57; PULSE 91; RESP 16; TEMP 36.4; O2SAT 98
[2021-07-06] MEDS: Magnesium Hydrox/Alum Hydrox 30 ML ORAL.SUSP PO (19:23)
[2021-07-06] MEDS: OLANZapine 7.5 MG TABLET PO (20:54)
[2021-07-06] MEDS: Mirtazapine 15 MG TABLET PO (20:54)
[2021-07-07 06:00] VITALS: BP 112/59; PULSE 90; TEMP 37.6; O2SAT 97
[2021-07-07] MEDS: Thiamine HCL 100 MG TABLET PO (08:36)
[2021-07-07] MEDS: Folic Acid 1 MG TABLET PO (08:36)
[2021-07-07] MEDS: Multivitamin TABLET 1 TAB PO (08:36)
[2021-07-07] MEDS: Lidocaine 4 % Patch ADH..PATCH 1 PATCH TRANSDERMA (08:37)
--- NOTE | 2021-07-07 11:31 | HO.PSYCHPN ---
Subjective Subjective Date of Service: 07/07/21 Reason For Visit: depression Subjective Notes: Conditional Voluntary Interim History: Nursing staff reported that the patient is eating 100% of her meals. She complained that she is not eating. Apparently, financial Services found that she has around 100 K savings. On interview the patient reported that she slept poorly last night. She agreed to increase mirtazapine to target depression and insomnia. Medication Compliance: Yes Side effects from medications: No Attending Groups: Intermittent Review of Systems Acute medical concerns: No Medical Review of Systems: unchanged Mental Status Exam Mental Status Exam Patient Appearance: Well Grooomed (Very thin) Patient Orientation: Person and Situation Level of Consciousness: Awake and Appropriate Patient Behavior: Cooperative and Passive Mood Description: Withdrawn and Depressed Affect Description: Constricted Ability to Follow Directions: Fair Speech Pattern: Clear Delusions: Paranoid Ideation Thought Process: Goal Oriented Thought Content: positive for Circumstantial and positive for Goal Oriented Judgement: Fair Diagnostics Vital Signs (24Hr): Vital Signs - 24 hr 07/06/21 18:24 07/07/21 06:00 Temperature 97.6 F 99.6 F Pulse Rate 91 90 Respiratory Rate 16 Blood Pressure 104/57 L 112/59 L Pulse Oximetry 98 97 Body Mass Index 16.5 Labs Results: 06/17/21 07:10 06/17/21 07:10 Medications Medications Current Medications Generic Name Dose Route Start Last Admin Trade Name Evertq PRN Reason Stop Dose Admin Acetaminophen 650 mg 06/16/21 17:23 07/04/21 08:28 Acetaminophen 325 Mg Tablet PO 650 mg Q6H PRN Administration Headache/Pain Mild Scale (1-3) Al Hydroxide/Mg Hydroxide 30 ml 06/16/21 17:23 07/06/21 19:23 Magnesium Hydrox/Alum Hydrox 30 Ml Oral.Susp PO 30 ml Q6H PRN Administration Heartburn/Nausea Folic Acid 1 mg 06/17/21 09:00 07/07/21 08:36 Folic Acid 1 Mg Tablet PO 1 mg DAILY GUERO Administration Lidocaine 1 patch 06/17/21 09:00 07/07/21 08:37 Lidocaine 4 % Patch Adh..Patch TRANSDERMA 1 patch DAILY GUERO Administration Magnesium Hydroxide 30 ml 06/16/21 17:23 Milk Of Magnesia 30 Ml Oral.Susp PO DAILY PRN Constipation Mirtazapine 15 mg 06/22/21 21:00 07/06/21 20:54 Mirtazapine 15 Mg Tablet PO 15 mg BEDTIME GUERO Administration Multivitamins/Vitamin C 1 tab 06/17/21 09:00 07/07/21 08:36 Multivitamin Tablet PO 1 tab DAILY GUERO Administration Olanzapine 7.5 mg 06/26/21 21:00 07/06/21 20:54 Olanzapine 7.5 Mg Tablet PO 7.5 mg BEDTIME GUERO Administration Thiamine HCl 100 mg 06/17/21 09:00 07/07/21 08:36 Thiamine Hcl 100 Mg Tablet PO 100 mg DAILY GUERO Administration Trazodone HCl 100 mg 06/22/21 14:00 Trazodone Hcl 100 Mg Tablet PO BEDTIME PRN Insomnia Allergies Allergies Allergy/AdvReac Type Severity Reaction Status Date / Time acetaminophen [From Percocet] Allergy Unknown Verified 06/16/21 16:20 clotrimazole Allergy Unknown Verified 06/16/21 16:20 oxycodone [From Percocet] Allergy Unknown Verified 06/16/21 16:20 paroxetine Allergy Unknown Verified 06/16/21 16:20 sulfamethoxazole Allergy Unknown Verified 06/16/21 16:20 [From Sulfamethoxazole-Trimethoprim] trimethoprim Allergy Unknown Verified 06/16/21 16:20 [From Sulfamethoxazole-Trimethoprim] Assessment & Plan Assessment & Plan (1) Dementia associated with other underlying disease with behavioral disturbance: Status: Acute Code(s): F02.81 - Dementia in other diseases classified elsewhere with behavioral disturbance Assessment and Plan: 1. Dementia with behavioral disturbances: Patient being managed the psychiatric unit. On Zyprexa and mirtazapine. Encourage to take medication. zyprexa dosing increased to 7.5 mg QHS as of 06/26 due to clear paranoid delusions. Ativan will be changed to tid schedule. Mirtazapine will be increased up to 30 mg p.o. q.h.s. to target depression and insomnia call 07/07. 2. History of lung cancer status post radiation: As per [facility] paper work brain mri neg in april/2021. Consider getting further information from PCP, try to call the -he could not able to provide information. 3. Referral to SNF Greater than 50% of the session was spent on counseling and/or coordination of care Reason for contiued inpatient stay Substantial Risk for: inability to function, rapid decompensation and med/psych decompensation
[2021-07-07] MEDS: LORazepam 0.5 MG TABLET 0.25 MG PO ×2 (14:09→20:00)
[2021-07-07 18:00] VITALS: BP 96/52; PULSE 99; RESP 16; TEMP 36.6; O2SAT 97
[2021-07-07] MEDS: Mirtazapine 15 MG TABLET 30 MG PO (20:00)
[2021-07-07] MEDS: OLANZapine 7.5 MG TABLET PO (20:00)
[2021-07-08 06:00] VITALS: BP 115/50; PULSE 88; RESP 16; TEMP 36.2; O2SAT 97
[2021-07-08 07:00] VITALS: BMI 16.9
[2021-07-08] MEDS: Multivitamin TABLET 1 TAB PO (09:31)
[2021-07-08] MEDS: Folic Acid 1 MG TABLET PO (09:31)
[2021-07-08] MEDS: Thiamine HCL 100 MG TABLET PO (09:32)
[2021-07-08] MEDS: LORazepam 0.5 MG TABLET 0.25 MG PO ×3 (09:32→19:52)
[2021-07-08] MEDS: Lidocaine 4 % Patch ADH..PATCH 1 PATCH TRANSDERMA (09:36)
--- NOTE | 2021-07-08 11:32 | HO.PSYCHPN ---
Subjective Subjective Date of Service: 07/08/21 Reason For Visit: depression Subjective Notes: Conditional Voluntary Interim History: The patient has slept the whole night with increase of Remeron at night. She is at baseline, very pessimistic and she is waiting for placement at SNF. On interview, the patient reported that she is just okay and refused to elaborate. Review of Systems Acute medical concerns: No Medical Review of Systems: unchanged Mental Status Exam Mental Status Exam Patient Appearance: Well Grooomed Patient Orientation: Person and Situation Level of Consciousness: Awake and Appropriate Patient Behavior: Passive and Distractible Mood Description: Constricted Affect Description: Constricted and Depressed Patient Cognition Impaired: No Ability to Follow Directions: Good Speech Pattern: Clear Hallucinations: None Delusions: Paranoid Ideation Thought Process: Linear Thought Content: positive for Circumstantial Judgement: Fair Diagnostics Vital Signs (24Hr): Vital Signs - 24 hr 07/07/21 18:00 07/08/21 06:00 Temperature 97.8 F 97.2 F Pulse Rate 99 88 Respiratory Rate 16 16 Blood Pressure 96/52 L 115/50 L Pulse Oximetry 97 97 Body Mass Index 16.5 Labs Results: 06/17/21 07:10 06/17/21 07:10 Medications Medications Current Medications Generic Name Dose Route Start Last Admin Trade Name Freq PRN Reason Stop Dose Admin Acetaminophen 650 mg 06/16/21 17:23 07/04/21 08:28 Acetaminophen 325 Mg Tablet PO 650 mg Q6H PRN Administration Headache/Pain Mild Scale (1-3) Al Hydroxide/Mg Hydroxide 30 ml 06/16/21 17:23 07/06/21 19:23 Magnesium Hydrox/Alum Hydrox 30 Ml Oral.Susp PO 30 ml Q6H PRN Administration Heartburn/Nausea Folic Acid 1 mg 06/17/21 09:00 07/08/21 09:31 Folic Acid 1 Mg Tablet PO 1 mg DAILY GUERO Administration Lidocaine 1 patch 06/17/21 09:00 07/08/21 09:36 Lidocaine 4 % Patch Adh..Patch TRANSDERMA 1 patch DAILY GUERO Administration Lorazepam 0.25 mg 07/07/21 15:00 07/08/21 09:32 Lorazepam 0.5 Mg Tablet PO 0.25 mg TID GUERO Administration Magnesium Hydroxide 30 ml 06/16/21 17:23 Milk Of Magnesia 30 Ml Oral.Susp PO DAILY PRN Constipation Mirtazapine 30 mg 07/07/21 21:00 07/07/21 20:00 Mirtazapine 15 Mg Tablet PO 30 mg BEDTIME GUERO Administration Multivitamins/Vitamin C 1 tab 06/17/21 09:00 07/08/21 09:31 Multivitamin Tablet PO 1 tab DAILY GUERO Administration Olanzapine 7.5 mg 06/26/21 21:00 07/07/21 20:00 Olanzapine 7.5 Mg Tablet PO 7.5 mg BEDTIME GUERO Administration Thiamine HCl 100 mg 06/17/21 09:00 07/08/21 09:32 Thiamine Hcl 100 Mg Tablet PO 100 mg DAILY GUERO Administration Trazodone HCl 100 mg 06/22/21 14:00 Trazodone Hcl 100 Mg Tablet PO BEDTIME PRN Insomnia Allergies Allergies Allergy/AdvReac Type Severity Reaction Status Date / Time acetaminophen [From Percocet] Allergy Unknown Verified 06/16/21 16:20 clotrimazole Allergy Unknown Verified 06/16/21 16:20 oxycodone [From Percocet] Allergy Unknown Verified 06/16/21 16:20 paroxetine Allergy Unknown Verified 06/16/21 16:20 sulfamethoxazole Allergy Unknown Verified 06/16/21 16:20 [From Sulfamethoxazole-Trimethoprim] trimethoprim Allergy Unknown Verified 06/16/21 16:20 [From Sulfamethoxazole-Trimethoprim] Assessment & Plan Assessment & Plan (1) Dementia associated with other underlying disease with behavioral disturbance: Status: Acute Code(s): F02.81 - Dementia in other diseases classified elsewhere with behavioral disturbance Assessment and Plan: 1. Dementia with behavioral disturbances: Patient being managed the psychiatric unit. On Zyprexa and mirtazapine. Encourage to take medication. zyprexa dosing increased to 7.5 mg QHS as of 06/26 due to clear paranoid delusions. Ativan will be changed to tid schedule. Mirtazapine will be increased up to 30 mg p.o. q.h.s. to target depression and insomnia call 07/07. 2. History of lung cancer status post radiation: As per [facility] paper work brain mri neg in april/2021. Consider getting further information from PCP, try to call the -he could not able to provide information. 3. Referral to SNF Greater than 50% of the session was spent on counseling and/or coordination of care Reason for contiued inpatient stay Substantial Risk for: inability to function, rapid decompensation and med/psych decompensation
[2021-07-08 12:12] VITALS: BMI 16.5
[2021-07-08] MEDS: Magnesium Hydrox/Alum Hydrox 30 ML ORAL.SUSP PO ×2 (14:37→21:24)
[2021-07-08] MEDS: Acetaminophen 325 MG TABLET 650 MG PO (14:37)
[2021-07-08 18:00] VITALS: BP 100/50; PULSE 100; RESP 18; TEMP 36.6; O2SAT 95
[2021-07-08] MEDS: Mirtazapine 15 MG TABLET 30 MG PO (19:52)
[2021-07-08] MEDS: OLANZapine 7.5 MG TABLET PO (19:52)
--- NOTE | 2021-07-09 08:08 | HO.PSYCHPN ---
Subjective Subjective Date of Service: 07/09/21 Reason For Visit: depression Subjective Notes: Conditional Voluntary Interim History: The patient complained of epigastric pain and bloating. She also complained of cough nonproductive. Even though that she complains of depression poor appetite, nursing staff has reported that she finish her meals. Mental Status Exam Mental Status Exam Patient Appearance: Well Grooomed Patient Orientation: Person and Situation Level of Consciousness: Awake Patient Behavior: Appropriate Mood Description: Calm and Depressed Affect Description: Constricted Patient Cognition Impaired: No Ability to Follow Directions: Good Speech Pattern: Clear Hallucinations: None Delusions: Paranoid Ideation Thought Process: Linear and Evasive Thought Content: positive for Circumstantial Judgement: Fair Diagnostics Vital Signs (24Hr): Vital Signs - 24 hr 07/08/21 18:00 Temperature 98 F Pulse Rate 100 Respiratory Rate 18 Blood Pressure 100/50 L Pulse Oximetry 95 Body Mass Index 16.5 Labs Results: 06/17/21 07:10 06/17/21 07:10 Medications Medications Current Medications Generic Name Dose Route Start Last Admin Trade Name Freq PRN Reason Stop Dose Admin Acetaminophen 650 mg 06/16/21 17:23 07/08/21 14:37 Acetaminophen 325 Mg Tablet PO 650 mg Q6H PRN Administration Headache/Pain Mild Scale (1-3) Al Hydroxide/Mg Hydroxide 30 ml 06/16/21 17:23 07/08/21 21:24 Magnesium Hydrox/Alum Hydrox 30 Ml Oral.Susp PO 30 ml Q6H PRN Administration Heartburn/Nausea Folic Acid 1 mg 06/17/21 09:00 07/08/21 09:31 Folic Acid 1 Mg Tablet PO 1 mg DAILY GUERO Administration Lidocaine 1 patch 06/17/21 09:00 07/08/21 09:36 Lidocaine 4 % Patch Adh..Patch TRANSDERMA 1 patch DAILY GUERO Administration Lorazepam 0.25 mg 07/07/21 15:00 07/08/21 19:52 Lorazepam 0.5 Mg Tablet PO 0.25 mg TID GUERO Administration Magnesium Hydroxide 30 ml 06/16/21 17:23 Milk Of Magnesia 30 Ml Oral.Susp PO DAILY PRN Constipation Mirtazapine 30 mg 07/07/21 21:00 07/08/21 19:52 Mirtazapine 15 Mg Tablet PO 30 mg BEDTIME GUERO Administration Multivitamins/Vitamin C 1 tab 06/17/21 09:00 07/08/21 09:31 Multivitamin Tablet PO 1 tab DAILY GUERO Administration Olanzapine 7.5 mg 06/26/21 21:00 07/08/21 19:52 Olanzapine 7.5 Mg Tablet PO 7.5 mg BEDTIME GUERO Administration Thiamine HCl 100 mg 06/17/21 09:00 07/08/21 09:32 Thiamine Hcl 100 Mg Tablet PO 100 mg DAILY GUERO Administration Trazodone HCl 100 mg 06/22/21 14:00 Trazodone Hcl 100 Mg Tablet PO BEDTIME PRN Insomnia Allergies Allergies Allergy/AdvReac Type Severity Reaction Status Date / Time acetaminophen [From Percocet] Allergy Unknown Verified 06/16/21 16:20 clotrimazole Allergy Unknown Verified 06/16/21 16:20 oxycodone [From Percocet] Allergy Unknown Verified 06/16/21 16:20 paroxetine Allergy Unknown Verified 06/16/21 16:20 sulfamethoxazole Allergy Unknown Verified 06/16/21 16:20 [From Sulfamethoxazole-Trimethoprim] trimethoprim Allergy Unknown Verified 06/16/21 16:20 [From Sulfamethoxazole-Trimethoprim] Assessment & Plan Assessment & Plan (1) Dementia associated with other underlying disease with behavioral disturbance: Status: Acute Code(s): F02.81 - Dementia in other diseases classified elsewhere with behavioral disturbance Assessment and Plan: 1. Dementia with behavioral disturbances: Patient being managed the psychiatric unit. On Zyprexa and mirtazapine. Encourage to take medication. zyprexa dosing increased to 7.5 mg QHS as of 06/26 due to clear paranoid delusions. Ativan will be changed to tid schedule. Mirtazapine will be increased up to 30 mg p.o. q.h.s. to target depression and insomnia call 07/07. 2. History of lung cancer status post radiation: As per [facility] paper work brain mri neg in april/2021. Consider getting further information from PCP, try to call the -he could not able to provide information. 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 I would order a chest x-ray 3. Referral to SNF or [facility]. Greater than 50% of the session was spent on counseling and/or coordination of care Reason for contiued inpatient stay Substantial Risk for: inability to function, rapid decompensation and med/psych decompensation
[2021-07-09 08:35] VITALS: BP 110/56; PULSE 86; RESP 16; TEMP 536.7; TEMP 998.1; O2SAT 98
[2021-07-09] MEDS: Lidocaine 4 % Patch ADH..PATCH 1 PATCH TRANSDERMA (09:17)
[2021-07-09] MEDS: Thiamine HCL 100 MG TABLET PO (09:17)
[2021-07-09] MEDS: Folic Acid 1 MG TABLET PO (09:17)
[2021-07-09] MEDS: LORazepam 0.5 MG TABLET 0.25 MG PO ×3 (09:17→19:48)
[2021-07-09] MEDS: Multivitamin TABLET 1 TAB PO (09:19)
--- NOTE | 2021-07-09 14:31 | MHC.CLN ---
NUTRITION WEIGHT STABLE X 1 WEEK WITH OVERALL FAVORABLE WEIGHT GAIN SINCE ADMISSION, +5%. CONTINUE TO FOLLOW PATIENT WEEKLY.
[2021-07-09] MEDS: OLANZapine 7.5 MG TABLET PO (19:49)
[2021-07-09] MEDS: Mirtazapine 15 MG TABLET 30 MG PO (19:49)
[2021-07-09 20:00] VITALS: BP 98/50; PULSE 109; RESP 17; TEMP 37; O2SAT 95
--- NOTE | 2021-07-10 06:26 | P.PNPSI_ITS ---
Subjective Subjective Date of Service: 07/12/21 Reason For Visit: depression Interim History: Pt somewhat irritable when approach. Pt reports she tired and feels hopeless. She also reports feeling frustrated about being interrupted by staff while in her room. She denies SI, but later made comment to nurse about passive suicidal thoughts without a plan. She was given low dose ativan 0.5mg one time with fair effect. She has been mostly in her room Medication Compliance: Yes Review of Systems Review of Systems Answers limited questions: Currently went to see the patient seems flat affect and answers only few questions denies any pain or any shortness of breath or abdominal pain or uri nary complaints No fevers or any new symptoms as per staff Seems very sad and depressed also has flat affect as above and and [place] seems to me Yes all other systems are reviewed and are negative Constitutional: Reports anorexia Eyes: Reports as per HPI Reports system reviewed and no additional complaints, except as documented Cardiovascular: Reports as per HPI Respiratory: Reports as per HPI Gastrointestinal: Reports as per HPI Musculoskeletal: Reports no additional musculoskeletal complaints Skin/Breast: Reports system reviewed and no additional complaints, except as docu Reports system reviewed and no additional complaints, except as documented Psychiatric: Reports as per HPI Endocrine: Reports no additional endocrine complaints Hematologic/Lymphatic: Reports as per HPI Allergic/Immunologic: Reports as per HPI Mental Status Exam Mental Status Exam Narrative: dressed appropriately. somewhat disheveled. no PMA/PMR. cooperative. speech nml in rate, amount, loudness, latency. decr prosody. thoughts linear and illogical. affect constricted, hypo-intense, non-labile. no SI/HI/AVH expressed. Patient Appearance: Well Grooomed Patient Orientation: Person and Situation Level of Consciousness: Awake Patient Behavior: Appropriate Mood Description: Calm and Depressed Affect Description: Constricted Patient Cognition Impaired: No Ability to Follow Directions: Good Speech Pattern: Clear Memory Description: Normal for Patient Diagnostics Vital Signs (24Hr): Vital Signs - 24 hr 07/11/21 18:00 Temperature 99.3 F Pulse Rate 103 H Blood Pressure 116/60 Pulse Oximetry 97 Body Mass Index 16.5 Labs Results: 06/17/21 07:10 06/17/21 07:10 Imaging Radiology Impressions: ITS Impressions Chest X-Ray 07/09/21 08:57 IMPRESSION: No infiltrate. 13 mm nonspecific nodular density left upper lobe. Recommend elective workup. A malignant lesion is not excluded based on this baseline finding. Medications Medications Current Medications Generic Name Dose Route Start Last Admin Trade Name Freq PRN Reason Stop Dose Admin Acetaminophen 650 mg 06/16/21 17:23 07/08/21 14:37 Acetaminophen 325 Mg Tablet PO 650 mg Q6H PRN Administration Headache/Pain Mild Scale (1-3) Al Hydroxide/Mg Hydroxide 30 ml 06/16/21 17:23 07/11/21 13:52 Magnesium Hydrox/Alum Hydrox 30 Ml Oral.Susp PO 30 ml Q6H PRN Administration Heartburn/Nausea Folic Acid 1 mg 06/17/21 09:00 07/11/21 08:14 Folic Acid 1 Mg Tablet PO 1 mg DAILY GUERO Administration Lidocaine 1 patch 06/17/21 09:00 07/11/21 13:57 Lidocaine 4 % Patch Adh..Patch TRANSDERMA Not Given DAILY GUERO Lorazepam 0.25 mg 07/07/21 15:00 07/11/21 19:43 Lorazepam 0.5 Mg Tablet PO 0.25 mg TID GUERO Administration Magnesium Hydroxide 30 ml 06/16/21 17:23 Milk Of Magnesia 30 Ml Oral.Susp PO DAILY PRN Constipation Mirtazapine 30 mg 07/07/21 21:00 07/11/21 19:42 Mirtazapine 15 Mg Tablet PO 30 mg BEDTIME GUERO Administration Multivitamins/Vitamin C 1 tab 06/17/21 09:00 07/11/21 08:14 Multivitamin Tablet PO 1 tab DAILY GUERO Administration Olanzapine 7.5 mg 06/26/21 21:00 07/11/21 19:43 Olanzapine 7.5 Mg Tablet PO 7.5 mg BEDTIME GUERO Administration Thiamine HCl 100 mg 06/17/21 09:00 07/11/21 08:14 Thiamine Hcl 100 Mg Tablet PO 100 mg DAILY GUERO Administration Trazodone HCl 100 mg 06/22/21 14:00 Trazodone Hcl 100 Mg Tablet PO BEDTIME PRN Insomnia Allergies Allergies Allergy/AdvReac Type Severity Reaction Status Date / Time acetaminophen [From Percocet] Allergy Unknown Verified 06/16/21 16:20 clotrimazole Allergy Unknown Verified 06/16/21 16:20 oxycodone [From Percocet] Allergy Unknown Verified 06/16/21 16:20 paroxetine Allergy Unknown Verified 06/16/21 16:20 sulfamethoxazole Allergy Unknown Verified 06/16/21 16:20 [From Sulfamethoxazole-Trimethoprim] trimethoprim Allergy Unknown Verified 06/16/21 16:20 [From Sulfamethoxazole-Trimethoprim] Assessment & Plan Assessment & Plan (1) Dementia associated with other underlying disease with behavioral disturbance: Status: Acute Code(s): F02.81 - Dementia in other diseases classified elsewhere with behavioral disturbance Assessment and Plan: 1. Dementia with behavioral disturbances: Patient being managed the psychiatric unit. On Zyprexa and mirtazapine. Encourage to take medication. zyprexa dosing increased to 7.5 mg QHS as of 06/26 due to clear paranoid delusions. Ativan will be changed to tid schedule. Mirtazapine will be increased up to 30 mg p.o. q.h.s. to target depression and insomnia call 07/07. 2. History of lung cancer status post radiation: As per [facility] paper work brain mri neg in april/2021. Consider getting further information from PCP, try to call the Mr. Hi -he could not able to provide information. 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 I would order a chest x-ray 3. Referral to SNF or [facility]. Greater than 50% of the session was spent on counseling and/or coordination of care Reason for contiued inpatient stay Substantial Risk for: inability to function
[2021-07-10] MEDS: Multivitamin TABLET 1 TAB PO (08:25)
[2021-07-10] MEDS: Thiamine HCL 100 MG TABLET PO (08:25)
[2021-07-10] MEDS: LORazepam 0.5 MG TABLET 0.25 MG PO (08:25)
[2021-07-10] MEDS: Folic Acid 1 MG TABLET PO (08:25)
[2021-07-10] MEDS: LORazepam 0.5 MG TABLET PO (11:43)
[2021-07-11 06:00] VITALS: BP 94/55; PULSE 89; TEMP 36.9; O2SAT 96
--- NOTE | 2021-07-11 06:28 | HO.PSYCHPN ---
Subjective Subjective Date of Service: 07/12/21 Reason For Visit: depression Interim History: Pt continues to present somewhat irritable when approached. Pt reports she tired and feels hopeless. She also reports feeling frustrated about being interrupted by staff while in her room. She denies SI, but later made comment to nurse about passive suicidal thoughts without a plan. She was given low dose ativan 0.5mg one time with fair effect. She has been mostly in her room Review of Systems Review of Systems Answers limited questions: Currently went to see the patient seems flat affect and answers only few questions denies any pain or any shortness of breath or abdominal pain or urinary complaints No fevers or any new symptoms as per staff Seems very sad and depressed also has flat affect as above and and [place] seems to me Yes all other systems are reviewed and are negative Constitutional: Reports anorexia Eyes: Reports as per HPI Reports system reviewed and no additional complaints, except as documented Cardiovascular: Reports as per HPI Respiratory: Reports as per HPI Gastrointestinal: Reports as per HPI Musculoskeletal: Reports no additional musculoskeletal complaints Skin/Breast: Reports system reviewed and no additional complaints, except as docu Reports system reviewed and no additional complaints, except as documented Psychiatric: Reports as per HPI Endocrine: Reports no additional endocrine complaints Hematologic/Lymphatic: Reports as per HPI Allergic/Immunologic: Reports as per HPI Mental Status Exam Mental Status Exam Narrative: dressed appropriately. hair unkempt, thin/malnourish. no PMA/PMR. cooperative. speech nml in rate, amount, loudness, latency. decr prosody. thoughts linear and illogical. affect constricted, hypo-intense, non-labile. no SI/HI/AVH expressed. Patient Appearance: Well Grooomed Patient Orientation: Person and Situation Level of Consciousness: Awake Patient Behavior: Appropriate Mood Description: Calm and Depressed Affect Description: Constricted Patient Cognition Impaired: No Ability to Follow Directions: Good Speech Pattern: Clear Memory Description: Normal for Patient Diagnostics Vital Signs (24Hr): Vital Signs - 24 hr 07/11/21 18:00 Temperature 99.3 F Pulse Rate 103 H Blood Pressure 116/60 Pulse Oximetry 97 Body Mass Index 16.5 Labs Results: 06/17/21 07:10 06/17/21 07:10 Imaging Radiology Impressions: ITS Impressions Chest X-Ray 07/09/21 08:57 IMPRESSION: No infiltrate. 13 mm nonspecific nodular density left upper lobe. Recommend elective workup. A malignant lesion is not excluded based on this baseline finding. Medications Medications Current Medications Generic Name Dose Route Start Last Admin Trade Name Freq PRN Reason Stop Dose Admin Acetaminophen 650 mg 06/16/21 17:23 07/08/21 14:37 Acetaminophen 325 Mg Tablet PO 650 mg Q6H PRN Administration Headache/Pain Mild Scale (1-3) Al Hydroxide/Mg Hydroxide 30 ml 06/16/21 17:23 07/11/21 13:52 Magnesium Hydrox/Alum Hydrox 30 Ml Oral.Susp PO 30 ml Q6H PRN Administration Heartburn/Nausea Folic Acid 1 mg 06/17/21 09:00 07/11/21 08:14 Folic Acid 1 Mg Tablet PO 1 mg DAILY GUERO Administration Lidocaine 1 patch 06/17/21 09:00 07/11/21 13:57 Lidocaine 4 % Patch Adh..Patch TRANSDERMA Not Given DAILY GUERO Lorazepam 0.25 mg 07/07/21 15:00 07/11/21 19:43 Lorazepam 0.5 Mg Tablet PO 0.25 mg TID GUERO Administration Magnesium Hydroxide 30 ml 06/16/21 17:23 Milk Of Magnesia 30 Ml Oral.Susp PO DAILY PRN Constipation Mirtazapine 30 mg 07/07/21 21:00 07/11/21 19:42 Mirtazapine 15 Mg Tablet PO 30 mg BEDTIME GUERO Administration Multivitamins/Vitamin C 1 tab 06/17/21 09:00 07/11/21 08:14 Multivitamin Tablet PO 1 tab DAILY GUERO Administration Olanzapine 7.5 mg 06/26/21 21:00 07/11/21 19:43 Olanzapine 7.5 Mg Tablet PO 7.5 mg BEDTIME GUERO Administration Thiamine HCl 100 mg 06/17/21 09:00 07/11/21 08:14 Thiamine Hcl 100 Mg Tablet PO 100 mg DAILY GUERO Administration Trazodone HCl 100 mg 06/22/21 14:00 Trazodone Hcl 100 Mg Tablet PO BEDTIME PRN Insomnia Allergies Allergies Allergy/AdvReac Type Severity Reaction Status Date / Time acetaminophen [From Percocet] Allergy Unknown Verified 06/16/21 16:20 clotrimazole Allergy Unknown Verified 06/16/21 16:20 oxycodone [From Percocet] Allergy Unknown Verified 06/16/21 16:20 paroxetine Allergy Unknown Verified 06/16/21 16:20 sulfamethoxazole Allergy Unknown Verified 06/16/21 16:20 [From Sulfamethoxazole-Trimethoprim] trimethoprim Allergy Unknown Verified 06/16/21 16:20 [From Sulfamethoxazole-Trimethoprim] Assessment & Plan Assessment & Plan (1) Dementia associated with other underlying disease with behavioral disturbance: Status: Acute Code(s): F02.81 - Dementia in other diseases classified elsewhere with behavioral disturbance Assessment and Plan: 1. Dementia with behavioral disturbances: Patient being managed the psychiatric unit. On Zyprexa and mirtazapine. Encourage to take medication. zyprexa dosing increased to 7.5 mg QHS as of 06/26 due to clear paranoid delusions. Ativan will be changed to tid schedule. Mirtazapine will be increased up to 30 mg p.o. q.h.s. to target depression and insomnia call 07/07. 2. History of lung cancer status post radiation: As per [facility] paper work brain mri neg in april/2021. Consider getting further information from PCP, try to call the -he could not able to provide information. 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 I would order a chest x-ray 3. Referral to SNF or [facility]. Greater than 50% of the session was spent on counseling and/or coordination of care Reason for contiued inpatient stay Substantial Risk for: inability to function
[2021-07-11] MEDS: Thiamine HCL 100 MG TABLET PO (08:14)
[2021-07-11] MEDS: Folic Acid 1 MG TABLET PO (08:14)
[2021-07-11] MEDS: Multivitamin TABLET 1 TAB PO (08:14)
[2021-07-11] MEDS: LORazepam 0.5 MG TABLET 0.25 MG PO ×3 (08:15→19:43)
[2021-07-11] MEDS: Magnesium Hydrox/Alum Hydrox 30 ML ORAL.SUSP PO (13:52)
[2021-07-11 18:00] VITALS: BP 116/60; PULSE 103; TEMP 37.4; O2SAT 97
--- NOTE | 2021-07-11 19:30 | PC.NURSE ---
When wasting 2 doses of 0.25 mg lorazepam, I entered it in [employer] as a cumulative dose of 0.5mg (1 tablet). I was unaware that each dose had to be documented separately. I then entered a waste of 0.25 MG (1/2 tablet) on the second waste documentation. The patient did receive 2 doses of 0.25MG during my shift.
[2021-07-11] MEDS: Mirtazapine 15 MG TABLET 30 MG PO (19:42)
[2021-07-11] MEDS: OLANZapine 7.5 MG TABLET PO (19:43)
[2021-07-12 06:00] VITALS: BP 97/53; PULSE 105; RESP 16; TEMP 37.2; O2SAT 98
[2021-07-12] MEDS: Folic Acid 1 MG TABLET PO (09:02)
[2021-07-12] MEDS: Multivitamin TABLET 1 TAB PO (09:02)
[2021-07-12] MEDS: Thiamine HCL 100 MG TABLET PO (09:02)
[2021-07-12] MEDS: LORazepam 0.5 MG TABLET 0.25 MG PO ×3 (09:02→20:55)
[2021-07-12] MEDS: Lidocaine 4 % Patch ADH..PATCH 1 PATCH TRANSDERMA (09:03)
--- NOTE | 2021-07-12 10:45 | P.PNPSI_ITS ---
Subjective Subjective Date of Service: 07/12/21 Reason For Visit: depression Subjective Notes: Conditional Voluntary Interim History: The nursing staff has reported that she is stable. Remains pesismistic but staff has noticed that she is sarcastic and funny. Waiting for placement. CXR showed a left nodular lession of 13 mm. I requested collateral information from her and Dr. Leonel Walker [phone]. Review of Systems Acute medical concerns: No Medical Review of Systems: unchanged Mental Status Exam Mental Status Exam Patient Appearance: Well Grooomed (very thin) Patient Orientation: Person Level of Consciousness: Awake Patient Behavior: Appropriate Mood Description: Calm and Depressed Affect Description: Constricted Patient Cognition Impaired: No Speech Pattern: Appropriate Hallucinations: None Delusions: Paranoid Ideation Thought Process: Linear Thought Content: positive for Circumstantial Judgement: Fair Diagnostics Vital Signs (24Hr): Vital Signs - 24 hr 07/11/21 18:00 07/12/21 06:00 Temperature 99.3 F 99.0 F Pulse Rate 103 H 105 H Respiratory Rate 16 Blood Pressure 116/60 97/53 L Pulse Oximetry 97 98 Body Mass Index 16.5 Labs Results: 06/17/21 07:10 06/17/21 07:10 Imaging Radiology Impressions: ITS Impressions Chest X-Ray 07/09/21 08:57 IMPRESSION: No infiltrate. 13 mm nonspecific nodular density left upper lobe. Recommend elective workup. A malignant lesion is not excluded based on this baseline finding. Medications Medications Current Medications Generic Name Dose Route Start Last Admin Trade Name Freq PRN Reason Stop Dose Admin Acetaminophen 650 mg 06/16/21 17:23 07/08/21 14:37 Acetaminophen 325 Mg Tablet PO 650 mg Q6H PRN Administration Headache/Pain Mild Scale (1-3) Al Hydroxide/Mg Hydroxide 30 ml 06/16/21 17:23 07/11/21 13:52 Magnesium Hydrox/Alum Hydrox 30 Ml Oral.Susp PO 30 ml Q6H PRN Administration Heartburn/Nausea Folic Acid 1 mg 06/17/21 09:00 07/12/21 09:02 Folic Acid 1 Mg Tablet PO 1 mg DAILY GUERO Administration Lidocaine 1 patch 06/17/21 09:00 07/12/21 09:03 Lidocaine 4 % Patch Adh..Patch TRANSDERMA 1 patch DAILY GUERO Administration Lorazepam 0.25 mg 07/07/21 15:00 07/12/21 09:02 Lorazepam 0.5 Mg Tablet PO 0.25 mg TID GUERO Administration Magnesium Hydroxide 30 ml 06/16/21 17:23 Milk Of Magnesia 30 Ml Oral.Susp PO DAILY PRN Constipation Mirtazapine 30 mg 07/07/21 21:00 07/11/21 19:42 Mirtazapine 15 Mg Tablet PO 30 mg BEDTIME GUERO Administration Multivitamins/Vitamin C 1 tab 06/17/21 09:00 07/12/21 09:02 Multivitamin Tablet PO 1 tab DAILY GUERO Administration Olanzapine 7.5 mg 06/26/21 21:00 07/11/21 19:43 Olanzapine 7.5 Mg Tablet PO 7.5 mg BEDTIME GUERO Administration Thiamine HCl 100 mg 06/17/21 09:00 07/12/21 09:02 Thiamine Hcl 100 Mg Tablet PO 100 mg DAILY GUERO Administration Trazodone HCl 100 mg 06/22/21 14:00 Trazodone Hcl 100 Mg Tablet PO BEDTIME PRN Insomnia Allergies Allergies Allergy/AdvReac Type Severity Reaction Status Date / Time acetaminophen [From Percocet] Allergy Unknown Verified 06/16/21 16:20 clotrimazole Allergy Unknown Verified 06/16/21 16:20 oxycodone [From Percocet] Allergy Unknown Verified 06/16/21 16:20 paroxetine Allergy Unknown Verified 06/16/21 16:20 sulfamethoxazole Allergy Unknown Verified 06/16/21 16:20 [From Sulfamethoxazole-Trimethoprim] trimethoprim Allergy Unknown Verified 06/16/21 16:20 [From Sulfamethoxazole-Trimethoprim] Assessment & Plan Assessment & Plan (1) Dementia associated with other underlying disease with behavioral dist urbance: Status: Acute Code(s): F02.81 - Dementia in other diseases classified elsewhere with behavioral disturbance Assessment and Plan: 1. Dementia with behavioral disturbances: Patient being managed the psychiatric unit. On Zyprexa and mirtazapine. Encourage to take medication. zyprexa dosing increased to 7.5 mg QHS as of 06/26 due to clear paranoid delusions. Ativan will be changed to tid schedule. Mirtazapine will be increased up to 30 mg p.o. q.h.s. to target depression and insomnia call 07/07. 2. History of lung cancer status post radiation: As per [facility] paper work brain mri neg in april/2021. Consider getting further information from PCP, try to call the -he could not able to provide information. 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 I ordered a chest x-ray that came with a nodule. I have called Dr. Leonel Walker [phone] and we will get records and images. 3. Referral to SNF or [facility]. Greater than 50% of the session was spent on counseling and/or coordination of care Reason for contiued inpatient stay Substantial Risk for: inability to function, rapid decompensation and med/psych decompensation
[2021-07-12 18:00] VITALS: BP 115/55; PULSE 100; RESP 17; TEMP 36.7; O2SAT 99
[2021-07-12] MEDS: Mirtazapine 15 MG TABLET 30 MG PO (20:55)
[2021-07-12] MEDS: OLANZapine 7.5 MG TABLET PO (20:55)
[2021-07-12] MEDS: Magnesium Hydrox/Alum Hydrox 30 ML ORAL.SUSP PO (20:56)
[2021-07-13 06:05] VITALS: BP 122/58; PULSE 98; RESP 17; TEMP 36.3; O2SAT 96
[2021-07-13] MEDS: Folic Acid 1 MG TABLET PO (08:25)
[2021-07-13] MEDS: Thiamine HCL 100 MG TABLET PO (08:25)
[2021-07-13] MEDS: LORazepam 0.5 MG TABLET 0.25 MG PO ×3 (08:25→20:11)
[2021-07-13] MEDS: Multivitamin TABLET 1 TAB PO (08:25)
[2021-07-13] MEDS: Lidocaine 4 % Patch ADH..PATCH 1 PATCH TRANSDERMA (08:27)
--- NOTE | 2021-07-13 13:39 | P.PNPSI_ITS ---
Subjective Subjective Date of Service: 07/13/21 Reason For Visit: depression Subjective Notes: Conditional Voluntary Interim History: Nursing staff has reported the patient is more agreeable, more engaged. We have not received the unit the reports of previous providers. I will call again. On interview, the patient denies new symptoms Review of Systems Acute medical concerns: No Medical Review of Systems: unchanged Mental Status Exam Mental Status Exam Patient Appearance: Well Grooomed Patient Orientation: Person Level of Consciousness: Awake Patient Behavior: Cooperative Mood Description: Constricted Affect Description: Constricted Patient Cognition Impaired: No Ability to Follow Directions: Good Speech Pattern: Clear Memory Description: Intact Hallucinations: None Delusions: Not Present Thought Process: Linear Thought Content: positive for Circumstantial Judgement: Fair Diagnostics Vital Signs (24Hr): Vital Signs - 24 hr 07/12/21 18:00 07/13/21 06:05 Temperature 98.0 F 97.4 F Pulse Rate 100 98 Respiratory Rate 17 17 Blood Pressure 115/55 L 122/58 L Pulse Oximetry 99 96 Body Mass Index 16.5 Labs Results: 06/17/21 07:10 06/17/21 07:10 Imaging Radiology Impressions: ITS Impressions Chest X-Ray 07/09/21 08:57 IMPRESSION: No infiltrate. 13 mm nonspecific nodular density left upper lobe. Recommend elective workup. A malignant lesion is not excluded based on this baseline finding. Medications Medications Current Medications Generic Name Dose Route Start Last Admin Trade Name Freq PRN Reason Stop Dose Admin Acetaminophen 650 mg 06/16/21 17:23 07/08/21 14:37 Acetaminophen 325 Mg Tablet PO 650 mg Q6H PRN Administration Headache/Pain Mild Scale (1-3) Al Hydroxide/Mg Hydroxide 30 ml 06/16/21 17:23 07/12/21 20:56 Magnesium Hydrox/Alum Hydrox 30 Ml Oral.Susp PO 30 ml Q6H PRN Administration Heartburn/Nausea Folic Acid 1 mg 06/17/21 09:00 07/13/21 08:25 Folic Acid 1 Mg Tablet PO 1 mg DAILY GUERO Administration Lidocaine 1 patch 06/17/21 09:00 07/13/21 08:27 Lidocaine 4 % Patch Adh..Patch TRANSDERMA 1 patch DAILY GUERO Administration Lorazepam 0.25 mg 07/12/21 21:00 07/13/21 08:25 Lorazepam 0.5 Mg Tablet PO 0.25 mg TID GUERO Administration Magnesium Hydroxide 30 ml 06/16/21 17:23 Milk Of Magnesia 30 Ml Oral.Susp PO DAILY PRN Constipation Mirtazapine 30 mg 07/07/21 21:00 07/12/21 20:55 Mirtazapine 15 Mg Tablet PO 30 mg BEDTIME GUERO Administration Multivitamins/Vitamin C 1 tab 06/17/21 09:00 07/13/21 08:25 Multivitamin Tablet PO 1 tab DAILY GUERO Administration Olanzapine 7.5 mg 06/26/21 21:00 07/12/21 20:55 Olanzapine 7.5 Mg Tablet PO 7.5 mg BEDTIME GUERO Administration Thiamine HCl 100 mg 06/17/21 09:00 07/13/21 08:25 Thiamine Hcl 100 Mg Tablet PO 100 mg DAILY GUERO Administration Trazodone HCl 100 mg 06/22/21 14:00 Trazodone Hcl 100 Mg Tablet PO BEDTIME PRN Insomnia Allergies Allergies Allergy/AdvReac Type Severity Reaction Status Date / Time acetaminophen [From Percocet] Allergy Unknown Verified 06/16/21 16:20 clotrimazole Allergy Unknown Verified 06/16/21 16:20 oxycodone [From Percocet] Allergy Unknown Verified 06/16/21 16:20 paroxetine Allergy Unknown Verified 06/16/21 16:20 sulfamethoxazole Allergy Unknown Verified 06/16/21 16:20 [From Sulfamethoxazole-Trimethoprim] trimethoprim Allergy Unknown Verified 06/16/21 16:20 [From Sulfamethoxazole-Trimethoprim] Assessment & Plan Assessment & Plan (1) Dementia associated with other underlying disease with behavioral disturbance: Status: Acute Code(s): F02.81 - Dementia in other diseases classified elsewhere with behavioral distur bance Assessment and Plan: 1. Dementia with behavioral disturbances: Patient being managed the psychiatric unit. On Zyprexa and mirtazapine. Encourage to take medication. zyprexa dosing increased to 7.5 mg QHS as of 06/26 due to clear paranoid delusions. Ativan will be changed to tid schedule. Mirtazapine will be increased up to 30 mg p.o. q.h.s. to target depression and insomnia call 07/07. 2. History of lung cancer status post radiation: As per [facility] paper work brain mri neg in april/2021. Consider getting further information from PCP, try to call the Mr.Richeson -he could not able to provide information. 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 I ordered a chest x-ray that came with a nodule. I have called Dr. Leonel Walker [phone] and we will get records and images. I have called again and they will fax me the old xrays 3. Referral to SNF or [facility]. Greater than 50% of the session was spent on counseling and/or coordination of care Reason for contiued inpatient stay Substantial Risk for: inability to function, rapid decompensation and med/psych decompensation
--- NOTE | 2021-07-13 15:11 | MHC.SL.SWA ---
Speech Pathologist Impression: Within Functional Limits Risk of Aspiration Due to: None Liquid Consistency and Strategies for Safe Swallow: Liquid Intake Recommendation: Thin Liquid Intake Strategies: Unrestricted Solid Food Consistency: Dietary Recommendations: Regular Additional Modifications to Solid Foods: Per record review, nursing and patient report, historically patient experiences some anxiety and fear surrounding eating and food consistencies. Her reported preference tends to be ground/mechanically altered (NDD 2) solids however, regular solids recommended to allow for more choice and variety in her diet. Please consider patient's preference for small pieces and moistened meat depending on mental status. Inpatient ST no longer appropriate at this time, please re-refer if condition changes. Oral Medication Intake: Whole with Liquid Compensatory Strategies and Precautions to be Taken for Safe Swallow: Sitting Upright (90 deg) Small Bites and Sips Alternate Liquids/Solids Supervision While Eating and Drinking for Safe Swallow: Intermittent Supervision Recommendation for Speech: Upgrade to regular solids recommended however patient has historically expressed preference for ground/mechanically altered solids. Please consider patient's preference for small pieces and moistened meat depending on mental status. Inpatient ST no longer appropriate at this time, please re-refer if condition changes. Kettle Cook Clinican/Clinical Fellow: No Supervisory Statement: I have reviewed and agree with the student/clinical fellow's documentation: N/A Speech Language Pathologist: Bridgette Fang M.A., CCC-ECOMMERCE PROJECT MANAGER
[2021-07-13 18:00] VITALS: BP 107/59; PULSE 116; TEMP 36.5; O2SAT 94
[2021-07-13] MEDS: OLANZapine 7.5 MG TABLET PO (20:12)
[2021-07-13] MEDS: Mirtazapine 15 MG TABLET 30 MG PO (20:12)
[2021-07-14 06:00] VITALS: BP 114/63; PULSE 98; RESP 18; TEMP 36.5; O2SAT 97
[2021-07-14] MEDS: Folic Acid 1 MG TABLET PO (08:33)
[2021-07-14] MEDS: Thiamine HCL 100 MG TABLET PO (08:33)
[2021-07-14] MEDS: LORazepam 0.5 MG TABLET 0.25 MG PO ×3 (08:33→20:17)
[2021-07-14] MEDS: Multivitamin TABLET 1 TAB PO (08:33)
[2021-07-14] MEDS: Lidocaine 4 % Patch ADH..PATCH 1 PATCH TRANSDERMA (08:40)
--- NOTE | 2021-07-14 11:17 | HO.PSYCHPN ---
Subjective Subjective Date of Service: 07/14/21 Reason For Visit: depression Interim History: Nursing staff has reported that the patient is not as negative as before. She has had consult with speech and he decided to change the diet. The patient is feeling less dysphoric. We discovered that the nodule found on the last chest x-ray has grown, and was initially observed on the chest x-ray in May. I will call her oncologist and I will fax those results. The patient is fully aware that she has a stage IV lung cancer and her prognosis is poor. Review of Systems Acute medical concerns: Yes Novel of 13 mm on chest x-ray Medical Review of Systems: unchanged Mental Status Exam Mental Status Exam Patient Appearance: Well Grooomed Patient Orientation: Person Level of Consciousness: Awake Patient Behavior: Appropriate Mood Description: Withdrawn Affect Description: Constricted Patient Cognition Impaired: No Ability to Follow Directions: Good Speech Pattern: Clear Memory Description: Intact Hallucinations: None Delusions: Not Present Thought Process: Distracted Thought Content: positive for Circumstantial Judgement: Fair Diagnostics Vital Signs (24Hr): Vital Signs - 24 hr 07/13/21 18:00 07/14/21 06:00 Temperature 97.7 F 97.7 F Pulse Rate 116 H 98 Respiratory Rate 18 Blood Pressure 107/59 L 114/63 Pulse Oximetry 94 97 Body Mass Index 16.5 Labs Results: 06/17/21 07:10 06/17/21 07:10 Imaging Radiology Impressions: ITS Impressions Chest X-Ray 07/09/21 08:57 IMPRESSION: No infiltrate. 13 mm nonspecific nodular density left upper lobe. Recommend elective workup. A malignant lesion is not excluded based on this baseline finding. Medications Medications Current Medications Generic Name Dose Route Start Last Admin Trade Name Freq PRN Reason Stop Dose Admin Acetaminophen 650 mg 06/16/21 17:23 07/08/21 14:37 Acetaminophen 325 Mg Tablet PO 650 mg Q6H PRN Administration Headache/Pain Mild Scale (1-3) Al Hydroxide/Mg Hydroxide 30 ml 06/16/21 17:23 07/12/21 20:56 Magnesium Hydrox/Alum Hydrox 30 Ml Oral.Susp PO 30 ml Q6H PRN Administration Heartburn/Nausea Folic Acid 1 mg 06/17/21 09:00 07/14/21 08:33 Folic Acid 1 Mg Tablet PO 1 mg DAILY GUERO Administration Lidocaine 1 patch 06/17/21 09:00 07/14/21 08:40 Lidocaine 4 % Patch Adh..Patch TRANSDERMA 1 patch DAILY GUERO Administration Lorazepam 0.25 mg 07/12/21 21:00 07/14/21 08:33 Lorazepam 0.5 Mg Tablet PO 0.25 mg TID GUERO Administration Magnesium Hydroxide 30 ml 06/16/21 17:23 Milk Of Magnesia 30 Ml Oral.Susp PO DAILY PRN Constipation Mirtazapine 30 mg 07/07/21 21:00 07/13/21 20:12 Mirtazapine 15 Mg Tablet PO 30 mg BEDTIME GUERO Administration Multivitamins/Vitamin C 1 tab 06/17/21 09:00 07/14/21 08:33 Multivitamin Tablet PO 1 tab DAILY GUERO Administration Olanzapine 7.5 mg 06/26/21 21:00 07/13/21 20:12 Olanzapine 7.5 Mg Tablet PO 7.5 mg BEDTIME GUERO Administration Thiamine HCl 100 mg 06/17/21 09:00 07/14/21 08:33 Thiamine Hcl 100 Mg Tablet PO 100 mg DAILY GUERO Administration Trazodone HCl 100 mg 06/22/21 14:00 Trazodone Hcl 100 Mg Tablet PO BEDTIME PRN Insomnia Allergies Allergies Allergy/AdvReac Type Severity Reaction Status Date / Time acetaminophen [From Percocet] Allergy Unknown Verified 06/16/21 16:20 clotrimazole Allergy Unknown Verified 06/16/21 16:20 oxycodone [From Percocet] Allergy Unknown Verified 06/16/21 16:20 paroxetine Allergy Unknown Verified 06/16/21 16:20 sulfamethoxazole Allergy Unknown Verified 06/16/21 16:20 [From Sulfamethoxazole-Trimethoprim] trimethoprim Allergy Unknown Verified 06/16/21 16:20 [From Sulfamethoxazole-Trimethoprim] Assessment & Plan Assessment & Plan (1) Dementia associated with other underlying disease with behavioral disturbance: Status: Acute Code(s): F02.81 - Dementia in other diseases classified elsewhere with behavioral disturbance Assessment and Plan: 1. Dementia with behavioral disturbances: Patient being managed the psychiatric unit. On Zyprexa and mirtazapine. Encourage to take medication. zyprexa dosing increased to 7.5 mg QHS as of 06/26 due to clear paranoid delusions. Ativan will be changed to tid schedule. Mirtazapine will be increased up to 30 mg p.o. q.h.s. to target depression and insomnia call 07/07. 2. History of lung cancer status post radiation: As per [facility] paper work brain mri neg in april/2021. Consider getting further information from PCP, try to call the -he could not able to provide information. 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 I ordered a chest x-ray that came with a nodule. I have called Dr. Leonel Walker [phone] and we will get records and images. I have called again and they will fax me the old xrays 3. Referral to SNF or [facility]. Greater than 50% of the session was spent on counseling and/or coordination of care Reason for contiued inpatient stay Substantial Risk for: inability to function, stable for discharge and med/psych decompensation
[2021-07-14 17:53] VITALS: BP 114/59; PULSE 110; RESP 18; TEMP 36.2; O2SAT 97
[2021-07-14] MEDS: OLANZapine 7.5 MG TABLET PO (20:16)
[2021-07-14] MEDS: Mirtazapine 15 MG TABLET 30 MG PO (20:17)
[2021-07-15 06:00] VITALS: BP 100/55; PULSE 98; TEMP 36.7; O2SAT 97
[2021-07-15 07:00] VITALS: BMI 16.5
[2021-07-15] MEDS: Thiamine HCL 100 MG TABLET PO (08:32)
[2021-07-15] MEDS: Multivitamin TABLET 1 TAB PO (08:32)
[2021-07-15] MEDS: Folic Acid 1 MG TABLET PO (08:32)
[2021-07-15] MEDS: LORazepam 0.5 MG TABLET 0.25 MG PO ×3 (08:34→21:27)
[2021-07-15] MEDS: Lidocaine 4 % Patch ADH..PATCH 1 PATCH TRANSDERMA (08:34)
--- NOTE | 2021-07-15 11:03 | P.PNPSI_ITS ---
Subjective Subjective Date of Service: 07/15/21 Reason For Visit: depression Subjective Notes: Conditional Voluntary Interim History: The patient got recent new clothes, she cut her nails done and in general, she looks less dysphoric. On interview, the patient remains pessimistic but nursing staff reports that she has been more pleasant. Mental Status Exam Mental Status Exam Patient Appearance: Well Grooomed Patient Orientation: Person Level of Consciousness: Awake Patient Behavior: Cooperative Mood Description: Constricted Affect Description: Depressed Patient Cognition Impaired: Yes Ability to Follow Directions: Good Speech Pattern: Clear Hallucinations: None Delusions: Paranoid Ideation Thought Process: Goal Oriented Thought Content: positive for Circumstantial Judgement: Fair Diagnostics Vital Signs (24Hr): Vital Signs - 24 hr 07/14/21 17:53 07/15/21 06:00 Temperature 97.1 F 98.0 F Pulse Rate 110 H 98 Respiratory Rate 18 Blood Pressure 114/59 L 100/55 L Pulse Oximetry 97 97 Body Mass Index 22.9 Labs Results: 06/17/21 07:10 06/17/21 07:10 Imaging Radiology Impressions: ITS Impressions Chest X-Ray 07/09/21 08:57 IMPRESSION: No infiltrate. 13 mm nonspecific nodular density left upper lobe. Recommend elective workup. A malignant lesion is not excluded based on this baseline finding. Medications Medications Current Medications Generic Name Dose Route Start Last Admin Trade Name Freq PRN Reason Stop Dose Admin Acetaminophen 650 mg 06/16/21 17:23 07/08/21 14:37 Acetaminophen 325 Mg Tablet PO 650 mg Q6H PRN Administration Headache/Pain Mild Scale (1-3) Al Hydroxide/Mg Hydroxide 30 ml 06/16/21 17:23 07/12/21 20:56 Magnesium Hydrox/Alum Hydrox 30 Ml Oral.Susp PO 30 ml Q6H PRN Administration Heartburn/Nausea Folic Acid 1 mg 06/17/21 09:00 07/15/21 08:32 Folic Acid 1 Mg Tablet PO 1 mg DAILY GUERO Administration Lidocaine 1 patch 06/17/21 09:00 07/15/21 08:34 Lidocaine 4 % Patch Adh..Patch TRANSDERMA 1 patch DAILY GUERO Administration Lorazepam 0.25 mg 07/12/21 21:00 07/15/21 08:34 Lorazepam 0.5 Mg Tablet PO 0.25 mg TID GUERO Administration Magnesium Hydroxide 30 ml 06/16/21 17:23 Milk Of Magnesia 30 Ml Oral.Susp PO DAILY PRN Constipation Mirtazapine 30 mg 07/07/21 21:00 07/14/21 20:17 Mirtazapine 15 Mg Tablet PO 30 mg BEDTIME GUERO Administration Multivitamins/Vitamin C 1 tab 06/17/21 09:00 07/15/21 08:32 Multivitamin Tablet PO 1 tab DAILY GUERO Administration Olanzapine 7.5 mg 06/26/21 21:00 07/14/21 20:16 Olanzapine 7.5 Mg Tablet PO 7.5 mg BEDTIME GUERO Administration Thiamine HCl 100 mg 06/17/21 09:00 07/15/21 08:32 Thiamine Hcl 100 Mg Tablet PO 100 mg DAILY GUERO Administration Trazodone HCl 100 mg 06/22/21 14:00 Trazodone Hcl 100 Mg Tablet PO BEDTIME PRN Insomnia Allergies Allergies Allergy/AdvReac Type Severity Reaction Status Date / Time acetaminophen [From Percocet] Allergy Unknown Verified 06/16/21 16:20 clotrimazole Allergy Unknown Verified 06/16/21 16:20 oxycodone [From Percocet] Allergy Unknown Verified 06/16/21 16:20 paroxetine Allergy Unknown Verified 06/16/21 16:20 sulfamethoxazole Allergy Unknown Verified 06/16/21 16:20 [From Sulfamethoxazole-Trimethoprim] trimethoprim Allergy Unknown Verified 06/16/21 16:20 [From Sulfamethoxazole-Trimethoprim] Assessment & Plan Assessment & Plan (1) Dementia associated with other underlying disease with behavioral disturbance: Status: Acute Code(s): F02.81 - Dementia in other diseases classified elsewhere with behavioral disturbance Assessment and Plan: 1. Dementia with behavioral disturbances: Patient being managed the psychiatric unit. On Zyprexa and mirtazapine. Encourage to take medication. zyprexa dosing increased to 7.5 mg QHS as of 06/26 due to clear paranoid delusions. Ativan will be changed to tid schedule. Mirtazapine will be increased up to 30 mg p.o. q.h.s. to target depression and insomnia call 07/07. 2. History of lung cancer status post radiation: As per [facility] paper work brain mri neg in april/2021. Consider getting further information from PCP, try to call the -he could not able to provide information. 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 I ordered a chest x-ray that came with a nodule. I have called Dr. Leonel Walker [phone] and we will get records and images. I have called again and they will fax me the old xrays 3. Referral to SNF or [facility]. She will have an assessment by the staff of the facility on July 19. Greater than 50% of the session was spent on counseling and/or coordination of care Reason for contiued inpatient stay Substantial Risk for: inability to function, rapid decompensation and med/psych decompensation
[2021-07-15 18:00] VITALS: BP 102/53; PULSE 94; RESP 17; TEMP 37; O2SAT 94
[2021-07-15] MEDS: Mirtazapine 15 MG TABLET 30 MG PO (21:27)
[2021-07-15] MEDS: OLANZapine 7.5 MG TABLET PO (21:27)
[2021-07-16 06:00] VITALS: BP 84/46; PULSE 86; TEMP 36.6; O2SAT 99
[2021-07-16] MEDS: LORazepam 0.5 MG TABLET 0.25 MG PO ×2 (07:56→14:50)
[2021-07-16] MEDS: Folic Acid 1 MG TABLET PO (07:57)
[2021-07-16] MEDS: Thiamine HCL 100 MG TABLET PO (07:57)
[2021-07-16] MEDS: Multivitamin TABLET 1 TAB PO (07:57)
--- NOTE | 2021-07-16 12:07 | P.PNPSI_ITS ---
Subjective Subjective Date of Service: 07/16/21 Reason For Visit: depression Subjective Notes: Conditional Voluntary Interim History: Nursing staff reported the patient is eating 100% of her meals, she has attended groups. On interview, the patient denies new symptoms. She is waiting for placement Mental Status Exam Mental Status Exam Patient Appearance: Well Grooomed Patient Orientation: Person Level of Consciousness: Awake Patient Behavior: Passive Mood Description: Constricted Affect Description: Constricted Patient Cognition Impaired: No Ability to Follow Directions: Good Speech Pattern: Clear Memory Description: Intact Hallucinations: None Delusions: Not Present Thought Process: Linear Thought Content: positive for Circumstantial Judgement: Fair Diagnostics Vital Signs (24Hr): Vital Signs - 24 hr 07/15/21 18:00 07/16/21 06:00 Temperature 98.6 F 97.9 F Pulse Rate 94 86 Respiratory Rate 17 Blood Pressure 102/53 L 84/46 L Pulse Oximetry 94 99 Body Mass Index 16.5 Labs Results: 06/17/21 07:10 06/17/21 07:10 Imaging Radiology Impressions: ITS Impressions Chest X-Ray 07/09/21 08:57 IMPRESSION: No infiltrate. 13 mm nonspecific nodular density left upper lobe. Recommend elective workup. A malignant lesion is not excluded based on this baseline finding. Medications Medications Current Medications Generic Name Dose Route Start Last Admin Trade Name Freq PRN Reason Stop Dose Admin Acetaminophen 650 mg 06/16/21 17:23 07/08/21 14:37 Acetaminophen 325 Mg Tablet PO 650 mg Q6H PRN Administration Headache/Pain Mild Scale (1-3) Al Hydroxide/Mg Hydroxide 30 ml 06/16/21 17:23 07/12/21 20:56 Magnesium Hydrox/Alum Hydrox 30 Ml Oral.Susp PO 30 ml Q6H PRN Administration Heartburn/Nausea Folic Acid 1 mg 06/17/21 09:00 07/16/21 07:57 Folic Acid 1 Mg Tablet PO 1 mg DAILY GUERO Administration Lidocaine 1 patch 06/17/21 09:00 07/16/21 07:57 Lidocaine 4 % Patch Adh..Patch TRANSDERMA 1 patch DAILY GUERO Administration Lorazepam 0.25 mg 07/12/21 21:00 07/16/21 07:56 Lorazepam 0.5 Mg Tablet PO 0.25 mg TID GUERO Administration Magnesium Hydroxide 30 ml 06/16/21 17:23 Milk Of Magnesia 30 Ml Oral.Susp PO DAILY PRN Constipation Mirtazapine 30 mg 07/07/21 21:00 07/15/21 21:27 Mirtazapine 15 Mg Tablet PO 30 mg BEDTIME GUERO Administration Multivitamins/Vitamin C 1 tab 06/17/21 09:00 07/16/21 07:57 Multivitamin Tablet PO 1 tab DAILY GUERO Administration Olanzapine 7.5 mg 06/26/21 21:00 07/15/21 21:27 Olanzapine 7.5 Mg Tablet PO 7.5 mg BEDTIME GUERO Administration Thiamine HCl 100 mg 06/17/21 09:00 07/16/21 07:57 Thiamine Hcl 100 Mg Tablet PO 100 mg DAILY GUERO Administration Trazodone HCl 100 mg 06/22/21 14:00 Trazodone Hcl 100 Mg Tablet PO BEDTIME PRN Insomnia Allergies Allergies Allergy/AdvReac Type Severity Reaction Status Date / Time acetaminophen [From Percocet] Allergy Unknown Verified 06/16/21 16:20 clotrimazole Allergy Unknown Verified 06/16/21 16:20 oxycodone [From Percocet] Allergy Unknown Verified 06/16/21 16:20 paroxetine Allergy Unknown Verified 06/16/21 16:20 sulfamethoxazole Allergy Unknown Verified 06/16/21 16:20 [From Sulfamethoxazole-Trimethoprim] trimethoprim Allergy Unknown Verified 06/16/21 16:20 [From Sulfamethoxazole-Trimethoprim] Assessment & Plan Assessment & Plan (1) Dementia associated with other underlying disease with behavioral disturbance: Status: Acute Code(s): F02.81 - Dementia in other diseases classified elsewhere with behavioral distur bance Assessment and Plan: 1. Dementia with behavioral disturbances: Patient being managed the psychiatric unit. On Zyprexa and mirtazapine. Encourage to take medication. zyprexa dosing increased to 7.5 mg QHS as of 06/26 due to clear paranoid delusions. Ativan will be changed to tid schedule. Mirtazapine will be increased up to 30 mg p.o. q.h.s. to target depression and insomnia call 07/07. 2. History of lung cancer status post radiation: As per [facility] paper work brain mri neg in april/2021. Consider getting further information from PCP, try to call the -he could not able to provide information. 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 I ordered a chest x-ray that came with a nodule. I have called Dr. Leonel Walker [phone] and we will get records and images. I have called again and they will fax me the old xrays 3. Referral to SNF or [facility]. She will have an assessment by the staff of the facility on July 19. Greater than 50% of the session was spent on counseling and/or coordination of care Reason for contiued inpatient stay Substantial Risk for: inability to function, rapid decompensation and med/psych decompensation
--- NOTE | 2021-07-16 12:19 | MHC.CLN ---
F/U OBSERVED AT LUNCH, EATING WELL. SEEN BY RN CARDIAC 07/13 WITH RECOMMENDATION FOR REGULAR CONSISTENCY. DIET UPGRADED TO REGULAR, CONTINUE ENSURE 240 M BID. WEIGHT STABLE X [address] WILL FOLLOW UP WEEKLY.
[2021-07-16] MEDS: Magnesium Hydrox/Alum Hydrox 30 ML ORAL.SUSP PO (14:57)
[2021-07-16 18:00] VITALS: RESP 14
[2021-07-17] MEDS: Folic Acid 1 MG TABLET PO (08:05)
[2021-07-17] MEDS: Lidocaine 4 % Patch ADH..PATCH 1 PATCH TRANSDERMA (08:05)
[2021-07-17] MEDS: LORazepam 0.5 MG TABLET 0.25 MG PO ×3 (08:05→20:13)
[2021-07-17] MEDS: Multivitamin TABLET 1 TAB PO (08:06)
[2021-07-17] MEDS: Thiamine HCL 100 MG TABLET PO (08:07)
[2021-07-17 08:31] VITALS: BP 91/54; PULSE 94; RESP 16; TEMP 37.1; O2SAT 95
--- NOTE | 2021-07-17 13:28 | HO.PSYCHPN ---
Subjective Subjective Date of Service: 07/17/21 Reason For Visit: depression Interim History: Nursing staff reported the patient is eating 100% of her meals, she has attended groups. On interview, the patient denies new symptoms. She is waiting for placement this continues to be true t Review of Systems Review of Systems Answers limited questions: Currently went to see the patient seems flat affect and answers only few questions denies any pain or any shortness of breath or abdominal pain or urinary complaints No fevers or any new symptoms as per staff Seems very sad and depressed also has flat affect as above and and [place] seems to me Yes all other systems are reviewed and are negative Constitutional: Reports anorexia Eyes: Reports as per HPI Reports system reviewed and no additional complaints, except as documented Cardiovascular: Reports as per HPI Respiratory: Reports as per HPI Gastrointestinal: Reports as per HPI Musculoskeletal: Reports no additional musculoskeletal complaints Skin/Breast: Reports system reviewed and no additional complaints, except as docu Reports system reviewed and no additional complaints, except as documented Psychiatric: Reports as per HPI Endocrine: Reports no additional endocrine complaints Hematologic/Lymphatic: Reports as per HPI Allergic/Immunologic: Reports as per HPI Mental Status Exam Mental Status Exam Narrative: dressed appropriately. hair unkempt, thin/malnourish. no PMA/PMR. cooperative. speech nml in rate, amount, loudness, latency. decr prosody. thoughts linear and illogical. affect constricted, hypo-intense, non-labile. no SI/HI/AVH expressed. Patient Appearance: Well Grooomed Patient Orientation: Person Level of Consciousness: Awake Patient Behavior: Passive Mood Description: Constricted Affect Description: Constricted Patient Cognition Impaired: No Ability to Follow Directions: Good Speech Pattern: Clear Memory Description: Intact Diagnostics Vital Signs (24Hr): Vital Signs - 24 hr 07/16/21 18:00 07/17/21 08:31 Temperature 98.7 F Pulse Rate 94 Respiratory Rate 14 16 Blood Pressure 91/54 L Pulse Oximetry 95 Body Mass Index 16.5 Labs Results: 06/17/21 07:10 06/17/21 07:10 Imaging Radiology Impressions: ITS Impressions Chest X-Ray 07/09/21 08:57 IMPRESSION: No infiltrate. 13 mm nonspecific nodular density left upper lobe. Recommend elective workup. A malignant lesion is not excluded based on this baseline finding. Medications Medications Current Medications Generic Name Dose Route Start Last Admin Trade Name Freq PRN Reason Stop Dose Admin Acetaminophen 650 mg 06/16/21 17:23 07/08/21 14:37 Acetaminophen 325 Mg Tablet PO 650 mg Q6H PRN Administration Headache/Pain Mild Scale (1-3) Al Hydroxide/Mg Hydroxide 30 ml 06/16/21 17:23 07/16/21 14:57 Magnesium Hydrox/Alum Hydrox 30 Ml Oral.Susp PO 30 ml Q6H PRN Administration Heartburn/Nausea Folic Acid 1 mg 06/17/21 09:00 07/17/21 08:05 Folic Acid 1 Mg Tablet PO 1 mg DAILY GUERO Administration Lidocaine 1 patch 06/17/21 09:00 07/17/21 08:05 Lidocaine 4 % Patch Adh..Patch TRANSDERMA 1 patch DAILY GUERO Administration Lorazepam 0.25 mg 07/12/21 21:00 07/17/21 08:05 Lorazepam 0.5 Mg Tablet PO 0.25 mg TID GUERO Administration Magnesium Hydroxide 30 ml 06/16/21 17:23 Milk Of Magnesia 30 Ml Oral.Susp PO DAILY PRN Constipation Mirtazapine 30 mg 07/07/21 21:00 07/16/21 20:26 Mirtazapine 15 Mg Tablet PO Not Given BEDTIME GUERO Multivitamins/Vitamin C 1 tab 06/17/21 09:00 07/17/21 08:06 Multivitamin Tablet PO 1 tab DAILY GUERO Administration Olanzapine 7.5 mg 06/26/21 21:00 07/16/21 20:26 Olanzapine 7.5 Mg Tablet PO Not Given BEDTIME GUERO Thiamine HCl 100 mg 06/17/21 09:00 07/17/21 08:07 Thiamine Hcl 100 Mg Tablet PO 100 mg DAILY GUERO Administration Trazodone HCl 100 mg 06/22/21 14:00 Trazodone Hcl 100 Mg Tablet PO BEDTIME PRN Insomnia Allergies Allergies Allergy/AdvReac Type Severity Reaction Status Date / Time acetaminophen [From Percocet] Allergy Unknown Verified 06/16/21 16:20 clotrimazole Allergy Unknown Verified 06/16/21 16:20 oxycodone [From Percocet] Allergy Unknown Verified 06/16/21 16:20 paroxetine Allergy Unknown Verified 06/16/21 16:20 sulfamethoxazole Allergy Unknown Verified 06/16/21 16:20 [From Sulfamethoxazole-Trimethoprim] trimethoprim Allergy Unknown Verified 06/16/21 16:20 [From Sulfamethoxazole-Trimethoprim] Assessment & Plan Assessment & Plan (1) Dementia associated with other underlying disease with behavioral disturbance: Status: Acute Code(s): F02.81 - Dementia in other diseases classified elsewhere with behavioral disturbance Assessment and Plan: cont mirtazapine olanzapine for depressive and psychotic sx 2. History of lung cancer status post radiation: As per [facility] paper work brain mri neg in april/2021. Consider getting further information from PCP, try to call the -he could not able to provide information. 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 I ordered a chest x-ray that came with a nodule. I have called Dr. Leonel Walker [phone] and we will get records and images. I have called again and they will fax me the old xrays 3. Referral to SNF or [facility]. She will have an assessment by the staff of the facility on July 19. Greater than 50% of the session was spent on counseling and/or coordination of care Reason for contiued inpatient stay Substantial Risk for: inability to function and rapid decompensation
[2021-07-17 18:00] VITALS: BP 101/53; PULSE 98; RESP 14; TEMP 36.9; O2SAT 99
[2021-07-17] MEDS: Mirtazapine 15 MG TABLET 30 MG PO (20:12)
[2021-07-17] MEDS: OLANZapine 7.5 MG TABLET PO (20:13)
[2021-07-17] MEDS: Magnesium Hydrox/Alum Hydrox 30 ML ORAL.SUSP PO (20:20)
[2021-07-18] MEDS: Thiamine HCL 100 MG TABLET PO (08:08)
[2021-07-18] MEDS: Lidocaine 4 % Patch ADH..PATCH 1 PATCH TRANSDERMA (08:08)
[2021-07-18] MEDS: Multivitamin TABLET 1 TAB PO (08:08)
[2021-07-18] MEDS: Folic Acid 1 MG TABLET PO (08:08)
[2021-07-18 11:23] VITALS: BP 109/68; PULSE 95; RESP 16; TEMP 36.4; O2SAT 99
--- NOTE | 2021-07-18 12:29 | HO.PSYCHPN ---
Subjective Subjective Date of Service: 07/18/21 Reason For Visit: depression Subjective Notes: Conditional Voluntary Medication Compliance: Yes Mental Status Exam Mental Status Exam Narrative: . Patient Appearance: Well Grooomed Patient Orientation: Person Level of Consciousness: Awake Patient Behavior: Passive Mood Description: Constricted and Flat Affect Description: Constricted and Blunted Patient Cognition Impaired: No Ability to Follow Directions: Good Speech Pattern: Clear Memory Description: Intact Thought Content: positive for Obsessional Thoughts, negative for Suicidal Ideation or negative for Homicidal Ideation Diagnostics Vital Signs (24Hr): Vital Signs - 24 hr 07/17/21 18:00 07/18/21 11:23 Temperature 98.5 F 97.5 F Pulse Rate 98 95 Respiratory Rate 14 16 Blood Pressure 101/53 L 109/68 Pulse Oximetry 99 99 Body Mass Index 16.5 Labs Results: 06/17/21 07:10 06/17/21 07:10 Imaging Radiology Impressions: ITS Impressions Chest X-Ray 07/09/21 08:57 IMPRESSION: No infiltrate. 13 mm nonspecific nodular density left upper lobe. Recommend elective workup. A malignant lesion is not excluded based on this baseline finding. Medications Medications Current Medications Generic Name Dose Route Start Last Admin Trade Name Freq PRN Reason Stop Dose Admin Acetaminophen 650 mg 06/16/21 17:23 07/08/21 14:37 Acetaminophen 325 Mg Tablet PO 650 mg Q6H PRN Administration Headache/Pain Mild Scale (1-3) Al Hydroxide/Mg Hydroxide 30 ml 06/16/21 17:23 07/17/21 20:20 Magnesium Hydrox/Alum Hydrox 30 Ml Oral.Susp PO 30 ml Q6H PRN Administration Heartburn/Nausea Folic Acid 1 mg 06/17/21 09:00 07/18/21 08:08 Folic Acid 1 Mg Tablet PO 1 mg DAILY GUERO Administration Lidocaine 1 patch 06/17/21 09:00 07/18/21 08:08 Lidocaine 4 % Patch Adh..Patch TRANSDERMA 1 patch DAILY GUERO Administration Magnesium Hydroxide 30 ml 06/16/21 17:23 Milk Of Magnesia 30 Ml Oral.Susp PO DAILY PRN Constipation Mirtazapine 30 mg 07/07/21 21:00 07/17/21 20:12 Mirtazapine 15 Mg Tablet PO 30 mg BEDTIME GUERO Administration Multivitamins/Vitamin C 1 tab 06/17/21 09:00 07/18/21 08:08 Multivitamin Tablet PO 1 tab DAILY GUERO Administration Olanzapine 7.5 mg 06/26/21 21:00 07/17/21 20:13 Olanzapine 7.5 Mg Tablet PO 7.5 mg BEDTIME GUERO Administration Thiamine HCl 100 mg 06/17/21 09:00 07/18/21 08:08 Thiamine Hcl 100 Mg Tablet PO 100 mg DAILY GUERO Administration Trazodone HCl 100 mg 06/22/21 14:00 Trazodone Hcl 100 Mg Tablet PO BEDTIME PRN Insomnia Allergies Allergies Allergy/AdvReac Type Severity Reaction Status Date / Time acetaminophen [From Percocet] Allergy Unknown Verified 06/16/21 16:20 clotrimazole Allergy Unknown Verified 06/16/21 16:20 oxycodone [From Percocet] Allergy Unknown Verified 06/16/21 16:20 paroxetine Allergy Unknown Verified 06/16/21 16:20 sulfamethoxazole Allergy Unknown Verified 06/16/21 16:20 [From Sulfamethoxazole-Trimethoprim] trimethoprim Allergy Unknown Verified 06/16/21 16:20 [From Sulfamethoxazole-Trimethoprim] Assessment & Plan Assessment & Plan (1) Dementia associated with other underlying disease with behavioral disturbance: Status: Acute Code(s): F02.81 - Dementia in other diseases classified elsewhere with behavioral disturbance Assessment and Plan: Patient flat dysphoric cooperative seen out on the unit Continue plan of care discharge planning Greater than 50% of the session was spent on counseling and/or coordination of care Reason for contiued inpatient stay Substantial Risk for: inability to function and rapid decompensation
[2021-07-18] MEDS: LORazepam 0.5 MG TABLET 0.25 MG PO ×2 (12:44→22:23)
[2021-07-18 18:00] VITALS: BP 98/54; PULSE 99; RESP 16; TEMP 37.2; O2SAT 98
[2021-07-18 18:54] VITALS: BP 98/54; PULSE 99; RESP 18; TEMP 37.2; O2SAT 98
[2021-07-18] MEDS: OLANZapine 7.5 MG TABLET PO (20:02)
[2021-07-18] MEDS: Mirtazapine 15 MG TABLET 30 MG PO (20:02)
[2021-07-18] MEDS: traZODone HCL 100 MG TABLET PO (22:23)
[2021-07-19 08:00] VITALS: BP 102/54; PULSE 100; TEMP 36.7; O2SAT 92
[2021-07-19] MEDS: Thiamine HCL 100 MG TABLET PO (09:41)
[2021-07-19] MEDS: Folic Acid 1 MG TABLET PO (09:41)
[2021-07-19] MEDS: Multivitamin TABLET 1 TAB PO (09:41)
--- NOTE | 2021-07-19 11:36 | HO.PSYCHPN ---
Subjective Subjective Date of Service: 07/20/21 Reason For Visit: depression Interim History: Pt with much improved hygiene, much more visible and engage in milieu activities such as completing passwords and coloring. She had her nails done, less in bed, less anxious. WHen asked pt reports no change at all, nothing will ever change but having seen this pt some weeks ago, she is much more visible. She denies SI/HI. She is not oriented to year, month, date nor situation. Medication Compliance: Yes Side effects from medications: No Attending Groups: Intermittent Review of Systems Review of Systems Answers limited questions: Currently went to see the patient seems flat affect and answers only few questions denies any pain or any shortness of breath or abdominal pain or urinary complaints No fevers or any new symptoms as per staff Seems very sad and depressed also has flat affect as above and and [place] seems to me Yes all other systems are reviewed and are negative Constitutional: Reports anorexia Eyes: Reports as per HPI Reports system reviewed and no additional complaints, except as documented Cardiovascular: Reports as per HPI Respiratory: Reports as per HPI Gastrointestinal: Reports as per HPI Musculoskeletal: Reports no additional musculoskeletal complaints Skin/Breast: Reports system reviewed and no additional complaints, except as docu Reports system reviewed and no additional complaints, except as documented Psychiatric: Reports as per HPI Endocrine: Reports no additional endocrine complaints Hematologic/Lymphatic: Reports as per HPI Allergic/Immunologic: Reports as per HPI Mental Status Exam Mental Status Exam Narrative: Appearance: thin, casually groomed, improved hygiene in NAD Behavior:some irritable edge at times, but much less so. psychomotor: no agitation nor retardation noted Speech:clear, normal rate/rhythm, spontaneous Thought process:tangential at times Thought content:no overt psychosis, waiting to go somewhere (pt unable to say where) Mood: okay Affect: congruent, not labile SI:denies HI:denies VH/AH: no signs of internally preoccupied. Delusions: no overt delusional content reported Insight/judgment: impaired x 2. Memory/cog: alert, not oriented to month, date, situation, place. underlying neurocognitive disorder Diagnostics Vital Signs (24Hr): Vital Signs - 24 hr 07/19/21 18:00 07/20/21 09:18 Temperature 98.9 F 98.0 F Pulse Rate 91 94 Respiratory Rate 17 16 Blood Pressure 91/42 L 140/63 H Pulse Oximetry 94 98 Body Mass Index 16.5 Labs Results: 06/17/21 07:10 06/17/21 07:10 Imaging Radiology Impressions: ITS Impressions Chest X-Ray 07/09/21 08:57 IMPRESSION: No infiltrate. 13 mm nonspecific nodular density left upper lobe. Recommend elective workup. A malignant lesion is not excluded based on this baseline finding. Medications Medications Current Medications Generic Name Dose Route Start Last Admin Trade Name Freq PRN Reason Stop Dose Admin Acetaminophen 650 mg 06/16/21 17:23 07/08/21 14:37 Acetaminophen 325 Mg Tablet PO 650 mg Q6H PRN Administration Headache/Pain Mild Scale (1-3) Al Hydroxide/Mg Hydroxide 30 ml 06/16/21 17:23 07/17/21 20:20 Magnesium Hydrox/Alum Hydrox 30 Ml Oral.Susp PO 30 ml Q6H PRN Administration Heartburn/Nausea Folic Acid 1 mg 06/17/21 09:00 07/20/21 08:41 Folic Acid 1 Mg Tablet PO 1 mg DAILY GUERO Administration Lidocaine 1 patch 06/17/21 09:00 07/20/21 08:42 Lidocaine 4 % Patch Adh..Patch TRANSDERMA 1 patch DAILY GUERO Administration Lorazepam 0.25 mg 07/18/21 12:29 07/20/21 08:42 Lorazepam 0.5 Mg Tablet PO 0.25 mg TID PRN Administration Anxiety Magnesium Hydroxide 30 ml 06/16/21 17:23 Milk Of Magnesia 30 Ml Oral.Susp PO DAILY PRN Constipation Mirtazapine 30 mg 07/07/21 21:00 07/19/21 20:32 Mirtazapine 15 Mg Tablet PO 30 mg BEDTIME GUERO Administration Multivitamins/Vitamin C 1 tab 06/17/21 09:00 07/20/21 08:41 Multivitamin Tablet PO 1 tab DAILY GUERO Administration Olanzapine 7.5 mg 06/26/21 21:00 07/19/21 20:34 Olanzapine 7.5 Mg Tablet PO 7.5 mg BEDTIME GUERO Administration Thiamine HCl 100 mg 06/17/21 09:00 07/20/21 08:42 Thiamine Hcl 100 Mg Tablet PO 100 mg DAILY GUERO Administration Trazodone HCl 100 mg 06/22/21 14:00 07/18/21 22:23 Trazodone Hcl 100 Mg Tablet PO 100 mg BEDTIME PRN Administration Insomnia Allergies Allergies Allergy/AdvReac Type Severity Reaction Status Date / Time acetaminophen [From Percocet] Allergy Unknown Verified 06/16/21 16:20 clotrimazole Allergy Unknown Verified 06/16/21 16:20 oxycodone [From Percocet] Allergy Unknown Verified 06/16/21 16:20 paroxetine Allergy Unknown Verified 06/16/21 16:20 sulfamethoxazole Allergy Unknown Verified 06/16/21 16:20 [From Sulfamethoxazole-Trimethoprim] trimethoprim Allergy Unknown Verified 06/16/21 16:20 [From Sulfamethoxazole-Trimethoprim] Assessment & Plan Assessment & Plan (1) Dementia associated with other underlying disease with behavioral disturbance: Status: Acute Code(s): F02.81 - Dementia in other diseases classified elsewhere with behavioral disturbance Assessment and Plan: Mrs. Ribera is a 75 year-old woman with neurocognitive disorder, admitted with psychosis and behavioral outburst, depressed mood. As of 07/19- pt with brighter affect, more engage in activities in milieu, improved hygiene. no behavioral concerns. PLAN: continue per primary treatment team 1. Continue olanzapine and remeron. 2. aftercare planning. awaiting safe placement Greater than 50% of the session was spent on counseling and/or coordination of care Reason for contiued inpatient stay Substantial Risk for: inability to function
[2021-07-19 18:00] VITALS: BP 91/42; PULSE 91; RESP 17; TEMP 37.2; O2SAT 94
[2021-07-19] MEDS: Mirtazapine 15 MG TABLET 30 MG PO (20:32)
[2021-07-19] MEDS: OLANZapine 7.5 MG TABLET PO (20:34)
[2021-07-20] MEDS: Multivitamin TABLET 1 TAB PO (08:41)
[2021-07-20] MEDS: Folic Acid 1 MG TABLET PO (08:41)
[2021-07-20] MEDS: Lidocaine 4 % Patch ADH..PATCH 1 PATCH TRANSDERMA (08:42)
[2021-07-20] MEDS: Thiamine HCL 100 MG TABLET PO (08:42)
[2021-07-20] MEDS: LORazepam 0.5 MG TABLET 0.25 MG PO ×3 (08:42→21:12)
[2021-07-20 09:18] VITALS: BP 140/63; PULSE 94; RESP 16; TEMP 36.7; O2SAT 98
--- NOTE | 2021-07-20 11:42 | P.PNPSI_ITS ---
Subjective Subjective Date of Service: 07/20/21 Reason For Visit: depression Interim History: Pt with much improved hygiene, much more visible and engage in milieu activities such as completing passwords and coloring. She had her nails done, less in bed, less anxious. WHen asked pt reports no change at all, nothing will ever change but having seen this pt some weeks ago, she is much more visible. She denies SI/HI. She is not oriented to year, month, date nor situation. Pt reports today having itchiness- all over her body, pitting edema more on left feet, than right. Medication Compliance: Yes Side effects from medications: No Attending Groups: Intermittent Review of Systems Constitutional: Denies weakness Eyes: Reports as per HPI Reports system reviewed and no additional complaints, except as documented and Denies disequilibrium Cardiovascular: Reports as per HPI, Denies chest pain, Denies chest pain at rest, Denies chest pain with activity, Denies rapid heart rate and Reports leg edema Respiratory: Reports as per HPI, Denies chest congestion, Denies cough and De nies pain on inspiration Gastrointestinal: Reports as per HPI, Denies constipation, Denies GI cramping, Reports dyspepsia, Reports heartburn and Denies nausea Musculoskeletal: Reports back pain Skin/Breast: Reports system reviewed and no additional complaints, except as docu Reports system reviewed and no additional complaints, except as documented, Reports memory loss, Denies disequilibrium and Denies weakness Psychiatric: Reports as per HPI and Reports memory loss Endocrine: Reports no additional endocrine complaints Hematologic/Lymphatic: Reports as per HPI Allergic/Immunologic: Reports as per HPI Mental Status Exam Mental Status Exam Narrative: Appearance: thin, casually groomed, improved hygiene in NAD Behavior:some irritable edge at times, but much less so. psychomotor: no agitation nor retardation noted Speech:clear, normal rate/rhythm, spontaneous Thought process:tangential at times Thought content:no overt psychosis, waiting to go somewhere (pt unable to say where) Mood: okay Affect: congruent, not labile SI:denies HI:denies VH/AH: no signs of internally preoccupied. Delusions: no overt delusional content reported Insight/judgment: impaired x 2. Memory/cog: alert, not oriented to month, date, situation, place. underlying neurocognitive disorder Diagnostics Vital Signs (24Hr): Vital Signs - 24 hr 07/19/21 18:00 07/20/21 09:18 Temperature 98.9 F 98.0 F Pulse Rate 91 94 Respiratory Rate 17 16 Blood Pressure 91/42 L 140/63 H Pulse Oximetry 94 98 Body Mass Index 16.5 Labs Results: 06/17/21 07:10 06/17/21 07:10 Imaging Radiology Impressions: ITS Impressions Chest X-Ray 07/09/21 08:57 IMPRESSION: No infiltrate. 13 mm nonspecific nodular density left upper lobe. Recommend elective workup. A malignant lesion is not excluded based on this baseline finding. Medications Medications Current Medications Generic Name Dose Route Start Last Admin Trade Name Freq PRN Reason Stop Dose Admin Acetaminophen 650 mg 06/16/21 17:23 07/08/21 14:37 Acetaminophen 325 Mg Tablet PO 650 mg Q6H PRN Administration Headache/Pain Mild Scale (1-3) Al Hydroxide/Mg Hydroxide 30 ml 06/16/21 17:23 07/17/21 20:20 Magnesium Hydrox/Alum Hydrox 30 Ml Oral.Susp PO 30 ml Q6H PRN Administration Heartburn/Nausea Folic Acid 1 mg 06/17/21 09:00 07/20/21 08:41 Folic Acid 1 Mg Tablet PO 1 mg DAILY GUERO Administration Lidocaine 1 patch 06/17/21 09:00 07/20/21 08:42 Lidocaine 4 % Patch Adh..Patch TRANSDERMA 1 patch DAILY GUERO Administration Lorazepam 0.25 mg 07/20/21 15:00 Lorazepam 0.5 Mg Tablet PO TID GUERO Magnesium Hydroxide 30 ml 06/16/21 17:23 Milk Of Magnesia 30 Ml Oral.Susp PO DAILY PRN Constipation Mirtazapine 30 mg 07/07/21 21:00 07/19/21 20:32 Mirtazapine 15 Mg Tablet PO 30 mg BEDTIME GUERO Administration Multivitamins/Vitamin C 1 tab 06/17/21 09:00 07/20/21 08:41 Multivitamin Tablet PO 1 tab DAILY GUERO Administration Olanzapine 7.5 mg 06/26/21 21:00 07/19/21 20:34 Olanzapine 7.5 Mg Tablet PO 7.5 mg BEDTIME GUERO Administration Thiamine HCl 100 mg 06/17/21 09:00 07/20/21 08:42 Thiamine Hcl 100 Mg Tablet PO 100 mg DAILY GUERO Administration Trazodone HCl 100 mg 06/22/21 14:00 07/18/21 22:23 Trazodone Hcl 100 Mg Tablet PO 100 mg BEDTIME PRN Administration Insomnia Allergies Allergies Allergy/AdvReac Type Severity Reaction Status Date / Time acetaminophen [From Percocet] Allergy Unknown Verified 06/16/21 16:20 clotrimazole Allergy Unknown Verified 06/16/21 16:20 oxycodone [From Percocet] Allergy Unknown Verified 06/16/21 16:20 paroxetine Allergy Unknown Verified 06/16/21 16:20 sulfamethoxazole Allergy Unknown Verified 06/16/21 16:20 [From Sulfamethoxazole-Trimethoprim] trimethoprim Allergy Unknown Verified 06/16/21 16:20 [From Sulfamethoxazole-Trimethoprim] Assessment & Plan Assessment & Plan (1) Dementia associated with other underlying disease with behavioral disturbance: Status: Acute Code(s): F02.81 - Dementia in other diseases classified elsewhere with behavioral disturbance Assessment and Plan: Mrs. Ribera is a 75 year-old woman with neurocognitive disorder, admitted with psychosis and behavioral outburst, depressed mood. As of 07/19- pt with brighter affect, more engage in activities in milieu, improved hygiene. no behavioral concerns. Pt reports itchiness all over- may try loratidine unclear if report accurate. PLAN: continue per primary treatment team 1. Continue olanzapine and remeron. 2. aftercare planning. awaiting safe placement Greater than 50% of the session was spent on counseling and/or coordination of care Reason for contiued inpatient stay Substantial Risk for: inability to function
[2021-07-20 20:30] VITALS: BP 95/54; PULSE 90; RESP 14; TEMP 36.8; O2SAT 97
[2021-07-20] MEDS: Mirtazapine 15 MG TABLET 30 MG PO (21:13)
[2021-07-20] MEDS: OLANZapine 7.5 MG TABLET PO (21:13)
[2021-07-20] MEDS: traZODone HCL 100 MG TABLET PO (22:10)
[2021-07-21] MEDS: LORazepam 0.5 MG TABLET 0.25 MG PO ×2 (08:07→15:27)
[2021-07-21] MEDS: Thiamine HCL 100 MG TABLET PO (08:07)
[2021-07-21] MEDS: Multivitamin TABLET 1 TAB PO (08:07)
[2021-07-21] MEDS: Folic Acid 1 MG TABLET PO (08:07)
[2021-07-21 09:47] VITALS: BP 98/52; PULSE 98; RESP 16; TEMP 36.6; O2SAT 97
--- NOTE | 2021-07-21 14:33 | P.PNPSI_ITS ---
Subjective Subjective Date of Service: 07/21/21 Reason For Visit: depression Subjective Notes: Conditional Voluntary Interim History: The nursing staff reports no new symptoms, she is cooperative and pleasant with care. The social work nurse reported that she had and a meeting with the staff of [facility] and so far it went well. She is waiting for placement. Medication Compliance: Yes Side effects from medications: No Attending Groups: Intermittent Review of Systems Acute medical concerns: No Medical Review of Systems: unchanged Mental Status Exam Mental Status Exam Patient Appearance: Well Grooomed Patient Orientation: Person, Place and Time Level of Consciousness: Awake Patient Behavior: Appropriate Mood Description: Constricted Affect Description: Constricted Patient Cognition Impaired: Yes Ability to Follow Directions: Good Speech Pattern: Clear Memory Description: Intact Hallucinations: None Thought Content: positive for Intact Judgement: Fair Diagnostics Vital Signs (24Hr): Vital Signs - 24 hr 07/20/21 20:30 07/21/21 09:47 Temperature 98.3 F 97.8 F Pulse Rate 90 98 Respiratory Rate 14 16 Blood Pressure 95/54 L 98/52 L Pulse Oximetry 97 97 Body Mass Index 16.5 Labs Results: 06/17/21 07:10 06/17/21 07:10 Imaging Radiology Impressions: ITS Impressions Chest X-Ray 07/09/21 08:57 IMPRESSION: No infiltrate. 13 mm nonspecific nodular density left upper lobe. Recommend elective workup. A malignant lesion is not excluded based on this baseline finding. Medications Medications Current Medications Generic Name Dose Route Start Last Admin Trade Name Freq PRN Reason Stop Dose Admin Acetaminophen 650 mg 06/16/21 17:23 07/08/21 14:37 Acetaminophen 325 Mg Tablet PO 650 mg Q6H PRN Administration Headache/Pain Mild Scale (1-3) Al Hydroxide/Mg Hydroxide 30 ml 06/16/21 17:23 07/17/21 20:20 Magnesium Hydrox/Alum Hydrox 30 Ml Oral.Susp PO 30 ml Q6H PRN Administration Heartburn/Nausea Folic Acid 1 mg 06/17/21 09:00 07/21/21 08:07 Folic Acid 1 Mg Tablet PO 1 mg DAILY GUERO Administration Lidocaine 1 patch 06/17/21 09:00 07/21/21 08:08 Lidocaine 4 % Patch Adh..Patch TRANSDERMA 1 patch DAILY GUERO Administration Lorazepam 0.25 mg 07/20/21 15:00 07/21/21 08:07 Lorazepam 0.5 Mg Tablet PO 0.25 mg TID GUERO Administration Magnesium Hydroxide 30 ml 06/16/21 17:23 Milk Of Magnesia 30 Ml Oral.Susp PO DAILY PRN Constipation Mirtazapine 30 mg 07/07/21 21:00 07/20/21 21:13 Mirtazapine 15 Mg Tablet PO 30 mg BEDTIME GUERO Administration Multivitamins/Vitamin C 1 tab 06/17/21 09:00 07/21/21 08:07 Multivitamin Tablet PO 1 tab DAILY GUERO Administration Olanzapine 7.5 mg 06/26/21 21:00 07/20/21 21:13 Olanzapine 7.5 Mg Tablet PO 7.5 mg BEDTIME GUERO Administration Thiamine HCl 100 mg 06/17/21 09:00 07/21/21 08:07 Thiamine Hcl 100 Mg Tablet PO 100 mg DAILY GUERO Administration Trazodone HCl 100 mg 06/22/21 14:00 07/20/21 22:10 Trazodone Hcl 100 Mg Tablet PO 100 mg BEDTIME PRN Administration Insomnia Allergies Allergies Allergy/AdvReac Type Severity Reaction Status Date / Time acetaminophen [From Percocet] Allergy Unknown Verified 06/16/21 16:20 clotrimazole Allergy Unknown Verified 06/16/21 16:20 oxycodone [From Percocet] Allergy Unknown Verified 06/16/21 16:20 paroxetine Allergy Unknown Verified 06/16/21 16:20 sulfamethoxazole Allergy Unknown Verified 06/16/21 16:20 [From Sulfamethoxazole-Trimethoprim] trimethoprim Allergy Unknown Verified 06/16/21 16:20 [From Sulfamethoxazole-Trimethoprim] Assessment & Plan Assessment & Plan (1) Dementia associated with other underlying disease with behavioral disturbance: Status: Acute Code(s): F02.81 - Dementia in other diseases classified elsewhere with behavioral disturbance Assessment and Plan: Mrs. Ribera is a 75 year-old woman with neurocognitive disorder, admitted with psychosis and behavioral outburst, depressed mood. As of 07/19- pt with brighter affect, more engage in activities in milieu, improved hygiene. no behavioral concerns. Pt reports itchiness all over- may try loratidine unclear if report accurate. PLAN: continue per primary treatment team 1. Continue olanzapine and remeron. 2. aftercare planning. awaiting safe placement Greater than 50% of the session was spent on counseling and/or coordination of care Informed Consent: understands Reason for contiued inpatient stay Substantial Risk for: inability to function, rapid decompensation and med/psych decompensation
[2021-07-21 21:09] VITALS: RESP 21; TEMP 37.1
[2021-07-22 06:00] VITALS: BP 101/50; PULSE 101; TEMP 36.7; O2SAT 99
[2021-07-22 07:00] VITALS: BMI 17.9
[2021-07-22] MEDS: Thiamine HCL 100 MG TABLET PO (08:26)
[2021-07-22] MEDS: Multivitamin TABLET 1 TAB PO (08:26)
[2021-07-22] MEDS: LORazepam 0.5 MG TABLET 0.25 MG PO ×3 (08:26→20:10)
[2021-07-22] MEDS: Folic Acid 1 MG TABLET PO (08:26)
--- NOTE | 2021-07-22 16:17 | P.PNPSI_ITS ---
Subjective Subjective Date of Service: 07/22/21 Reason For Visit: depression Interim History: Pt ambulating in unit, pleasant with brighter affect. She reports she wants to know when she can go to [facility]. She denied SI/HI. She reports some difficulty sleeping at night but RN reports she appears to sleep through the night. No behavioral concerns. Much more visible and active. Her hygiene has significantly improved. Review of Systems Review of Systems Answers limited questions: Currently went to see the patient seems flat affect and answers only few questions denies any pain or any shortness of breath or abdominal pain or urinary complaints No fevers or any new symptoms as per staff Seems very sad and depressed also has flat affect as above and and [place] seems to me Yes all other systems are reviewed and are negative Constitutional: Reports anorexia and Denies weakness Eyes: Reports as per HPI Reports system reviewed and no additional complaints, except as documented and Denies disequilibrium Cardiovascular: Reports as per HPI, Denies chest pain, Denies chest pain at rest, Denies chest pain with activity, Denies rapid heart rate and Reports leg edema Respiratory: Reports as per HPI, Denies chest congestion, Denies cough and Denies pain on inspiration Gastrointestinal: Reports as per HPI, Denies constipation, Denies GI cramping, Reports dyspepsia, Reports heartburn and Denies nausea Musculoskeletal: Reports no additional musculoskeletal complaints and Reports back pain Skin/Breast: Reports system reviewed and no additional complaints, except as docu Reports system reviewed and no additional complaints, except as documented, Reports memory loss, Denies disequilibrium and Denies weakness Psychiatric: Reports as per HPI and Reports memory loss Endocrine: Reports no additional endocrine complaints Hematologic/Lymphatic: Reports as per HPI Allergic/Immunologic: Reports as per HPI Mental Status Exam Mental Status Exam Narrative: Appearance: thin, casually groomed, improved hygiene in NAD Behavior:some irritable edge at times, but much less so. psychomotor: no agitation nor retardation noted Speech:clear, normal rate/rhythm, spontaneous Thought process:tangential at times Thought content:no overt psychosis, waiting to go somewhere (pt unable to say where) Mood: okay Affect: congruent, not labile SI:denies HI:denies VH/AH: no signs of internally preoccupied. Delusions: no overt delusional content reported Insight/judgment: impaired x 2. Memory/cog: alert, not oriented to month, date, situation, place. underlying neurocognitive disorder Diagnostics Vital Signs (24Hr): Vital Signs - 24 hr 07/21/21 21:09 07/22/21 06:00 Temperature 98.8 F 98.1 F Pulse Rate 101 H Respiratory Rate 21 H Blood Pressure 101/50 L Pulse Oximetry 99 Body Mass Index 17.9 Labs Results: 06/17/21 07:10 06/17/21 07:10 Imaging Radiology Impressions: ITS Impressions Chest X-Ray 07/09/21 08:57 IMPRESSION: No infiltrate. 13 mm nonspecific nodular density left upper lobe. Recommend elective workup. A malignant lesion is not excluded based on this baseline finding. Medications Medications Current Medications Generic Name Dose Route Start Last Admin Trade Name Freq PRN Reason Stop Dose Admin Acetaminophen 650 mg 06/16/21 17:23 07/08/21 14:37 Acetaminophen 325 Mg Tablet PO 650 mg Q6H PRN Administration Headache/Pain Mild Scale (1-3) Al Hydroxide/Mg Hydroxide 30 ml 06/16/21 17:23 07/17/21 20:20 Magnesium Hydrox/Alum Hydrox 30 Ml Oral.Susp PO 30 ml Q6H PRN Administration Heartburn/Nausea Diphenhydramine HCl 25 mg 07/21/21 21:00 07/21/21 23:20 Diphenhydramine Hcl 25 Mg Tablet PO Not Given BEDTIME GUERO Folic Acid 1 mg 06/17/21 09:00 07/22/21 08:26 Folic Acid 1 Mg Tablet PO 1 mg DAILY GUERO Administration Lidocaine 1 patch 06/17/21 09:00 07/22/21 09:10 Lidocaine 4 % Patch Adh..Patch TRANSDERMA Not Given DAILY GUERO Lorazepam 0.25 mg 07/20/21 15:00 07/22/21 14:32 Lorazepam 0.5 Mg Tablet PO 0.25 mg TID GUERO Administration Magnesium Hydroxide 30 ml 06/16/21 17:23 Milk Of Magnesia 30 Ml Oral.Susp PO DAILY PRN Constipation Mirtazapine 30 mg 07/07/21 21:00 07/21/21 23:24 Mirtazapine 15 Mg Tablet PO Not Given BEDTIME GUERO Multivitamins/Vitamin C 1 tab 06/17/21 09:00 07/22/21 08:26 Multivitamin Tablet PO 1 tab DAILY GUERO Administration Olanzapine 7.5 mg 06/26/21 21:00 07/21/21 23:27 Olanzapine 7.5 Mg Tablet PO Not Given BEDTIME GUERO Thiamine HCl 100 mg 06/17/21 09:00 07/22/21 08:26 Thiamine Hcl 100 Mg Tablet PO 100 mg DAILY GUERO Administration Trazodone HCl 100 mg 06/22/21 14:00 07/20/21 22:10 Trazodone Hcl 100 Mg Tablet PO 100 mg BEDTIME PRN Administration Insomnia Allergies Allergies Allergy/AdvReac Type Severity Reaction Status Date / Time acetaminophen [From Percocet] Allergy Unknown Verified 06/16/21 16:20 clotrimazole Allergy Unknown Verified 06/16/21 16:20 oxycodone [From Percocet] Allergy Unknown Verified 06/16/21 16:20 paroxetine Allergy Unknown Verified 06/16/21 16:20 sulfamethoxazole Allergy Unknown Verified 06/16/21 16:20 [From Sulfamethoxazole-Trimethoprim] trimethoprim Allergy Unknown Verified 06/16/21 16:20 [From Sulfamethoxazole-Trimethoprim] Assessment & Plan Assessment & Plan (1) Dementia associated with other underlying disease with behavioral disturbance: Status: Acute Code(s): F02.81 - Dementia in other diseases classified elsewhere with behavioral disturbance Assessment and Plan: Mrs. Ribera is a 75 year-old woman with neurocognitive disorder, admitted with psychosis and behavioral outburst, depressed mood. As of 07/19- pt with brighter affect, more engage in activities in milieu, improved hygiene. no behavioral concerns. Pt reports itchiness all over- may try loratidine unclear if report accurate. PLAN: continue per primary treatment team 1. Continue olanzapine and remeron. 2. aftercare planning. awaiting safe placement Greater than 50% of the session was spent on counseling and/or coordination of care Reason for contiued inpatient stay Substantial Risk for: inability to function
[2021-07-22 18:00] VITALS: BP 103/57; PULSE 96; TEMP 36.5; O2SAT 99
[2021-07-22] MEDS: Mirtazapine 15 MG TABLET 30 MG PO (20:10)
[2021-07-22] MEDS: diphenhydrAMINE HCL 25 MG TABLET PO (20:10)
[2021-07-22] MEDS: OLANZapine 7.5 MG TABLET PO (20:10)
[2021-07-22] MEDS: Magnesium Hydrox/Alum Hydrox 30 ML ORAL.SUSP PO (20:40)
[2021-07-23 08:00] VITALS: BP 108/55; PULSE 100; RESP 16; TEMP 36.7; O2SAT 98
[2021-07-23] MEDS: Folic Acid 1 MG TABLET PO (08:15)
[2021-07-23] MEDS: Thiamine HCL 100 MG TABLET PO (08:15)
[2021-07-23] MEDS: Multivitamin TABLET 1 TAB PO (08:15)
[2021-07-23] MEDS: LORazepam 0.5 MG TABLET 0.25 MG PO ×3 (08:15→19:31)
[2021-07-23] MEDS: Lidocaine 4 % Patch ADH..PATCH 1 PATCH TRANSDERMA (08:17)
--- NOTE | 2021-07-23 12:58 | HO.PSYCHPN ---
Subjective Subjective Date of Service: 07/23/21 Reason For Visit: depression Subjective Notes: Conditional Voluntary Interim History: Nursing staff reports no changes in her mental status. The patient on interview denied new symptoms, she is cooperative and pleasant. She is aware that she will be discharged pretty soon, most likely next Monday. Medication Compliance: Yes Side effects from medications: No Attending Groups: Intermittent Review of Systems Acute medical concerns: No Medical Review of Systems: unchanged Mental Status Exam Mental Status Exam Patient Appearance: Well Grooomed Patient Orientation: Person, Place, Time and Situation Level of Consciousness: Awake Patient Behavior: Cooperative Mood Description: Calm Affect Description: Constricted Patient Cognition Impaired: No Ability to Follow Directions: Good Speech Pattern: Clear Hallucinations: None Delusions: Paranoid Ideation Thought Process: Goal Oriented Thought Content: positive for Circumstantial Judgement: Fair Diagnostics Vital Signs (24Hr): Vital Signs - 24 hr 07/22/21 18:00 07/23/21 08:00 Temperature 97.7 F 98.1 F Pulse Rate 96 100 Respiratory Rate 16 Blood Pressure 103/57 L 108/55 L Pulse Oximetry 99 98 Body Mass Index 17.9 Labs Results: 06/17/21 07:10 06/17/21 07:10 Imaging Radiology Impressions: ITS Impressions Chest X-Ray 07/09/21 08:57 IMPRESSION: No infiltrate. 13 mm nonspecific nodular density left upper lobe. Recommend elective workup. A malignant lesion is not excluded based on this baseline finding. Medications Medications Current Medications Generic Name Dose Route Start Last Admin Trade Name Freq PRN Reason Stop Dose Admin Acetaminophen 650 mg 06/16/21 17:23 07/08/21 14:37 Acetaminophen 325 Mg Tablet PO 650 mg Q6H PRN Administration Headache/Pain Mild Scale (1-3) Al Hydroxide/Mg Hydroxide 30 ml 06/16/21 17:23 07/22/21 20:40 Magnesium Hydrox/Alum Hydrox 30 Ml Oral.Susp PO 30 ml Q6H PRN Administration Heartburn/Nausea Diphenhydramine HCl 25 mg 07/21/21 21:00 07/22/21 20:10 Diphenhydramine Hcl 25 Mg Tablet PO 25 mg BEDTIME GUERO Administration Folic Acid 1 mg 06/17/21 09:00 07/23/21 08:15 Folic Acid 1 Mg Tablet PO 1 mg DAILY GUERO Administration Lidocaine 1 patch 06/17/21 09:00 07/23/21 08:17 Lidocaine 4 % Patch Adh..Patch TRANSDERMA 1 patch DAILY GUERO Administration Lorazepam 0.25 mg 07/20/21 15:00 07/23/21 08:15 Lorazepam 0.5 Mg Tablet PO 0.25 mg TID GUERO Administration Magnesium Hydroxide 30 ml 06/16/21 17:23 Milk Of Magnesia 30 Ml Oral.Susp PO DAILY PRN Constipation Mirtazapine 30 mg 07/07/21 21:00 07/22/21 20:10 Mirtazapine 15 Mg Tablet PO 30 mg BEDTIME GUERO Administration Multivitamins/Vitamin C 1 tab 06/17/21 09:00 07/23/21 08:15 Multivitamin Tablet PO 1 tab DAILY GUERO Administration Olanzapine 7.5 mg 06/26/21 21:00 07/22/21 20:10 Olanzapine 7.5 Mg Tablet PO 7.5 mg BEDTIME GUERO Administration Thiamine HCl 100 mg 06/17/21 09:00 07/23/21 08:15 Thiamine Hcl 100 Mg Tablet PO 100 mg DAILY GUERO Administration Trazodone HCl 100 mg 06/22/21 14:00 07/20/21 22:10 Trazodone Hcl 100 Mg Tablet PO 100 mg BEDTIME PRN Administration Insomnia Allergies Allergies Allergy/AdvReac Type Severity Reaction Status Date / Time acetaminophen [From Percocet] Allergy Unknown Verified 06/16/21 16:20 clotrimazole Allergy Unknown Verified 06/16/21 16:20 oxycodone [From Percocet] Allergy Unknown Verified 06/16/21 16:20 paroxetine Allergy Unknown Verified 06/16/21 16:20 sulfamethoxazole Allergy Unknown Verified 06/16/21 16:20 [From Sulfamethoxazole-Trimethoprim] trimethoprim Allergy Unknown Verified 06/16/21 16:20 [From Sulfamethoxazole-Trimethoprim] Assessment & Plan Assessment & Plan (1) Dementia associated with other underlying disease with behavioral disturbance: Status: Acute Code(s): F02.81 - Dementia in other diseases classified elsewhere with behavioral disturbance Assessment and Plan: Mrs. Ribera is a 75 year-old woman with neurocognitive disorder, admitted with psychosis and behavioral outburst, depressed mood. As of 07/19- pt with brighter affect, more engage in activities in milieu, improved hygiene. no behavioral concerns. Pt reports itchiness all over- may try loratidine unclear if report accurate. PLAN: continue per primary treatment team 1. Continue olanzapine and remeron. 2. aftercare planning. awaiting safe placement Greater than 50% of the session was spent on counseling and/or coordination of care Reason for contiued inpatient stay Substantial Risk for: inability to function, rapid decompensation and med/psych decompensation
--- NOTE | 2021-07-23 15:41 | MHC.CLN ---
F/U FAVORABLE WEIGHT GAIN X 2 WEEKS, +4 KG, 8.3%. CONTINUES WITH REGULAR DIET, ENSURE 240 ML BID. STAFF REPORTED THAT SHE IS EATING WELL.
[2021-07-23 18:44] VITALS: BP 107/55; PULSE 95; RESP 18; TEMP 37; O2SAT 99
[2021-07-23] MEDS: diphenhydrAMINE HCL 25 MG TABLET PO (19:32)
[2021-07-23] MEDS: OLANZapine 7.5 MG TABLET PO (19:32)
[2021-07-23] MEDS: Mirtazapine 15 MG TABLET 30 MG PO (19:32)
[2021-07-24 08:00] VITALS: BP 101/59; PULSE 99; TEMP 36.8; O2SAT 97
[2021-07-24] MEDS: Folic Acid 1 MG TABLET PO (08:22)
[2021-07-24] MEDS: Thiamine HCL 100 MG TABLET PO (08:22)
[2021-07-24] MEDS: LORazepam 0.5 MG TABLET 0.25 MG PO ×3 (08:22→20:14)
[2021-07-24] MEDS: Multivitamin TABLET 1 TAB PO (08:22)
--- NOTE | 2021-07-24 11:34 | P.PNPSI_ITS ---
Subjective Subjective Date of Service: 07/25/21 Reason For Visit: depression Interim History: Pt has been more visible in the unit. She is well groomed, attending activities. She states she is looking forward to transition to [facility] but suspicious about whether this information given to her by clinician is in fact accurate. She denies SI/HI. She does have a underlying negative outlook a bout her life but denies SI/HI. Her affect is much brighter than when first admitted. Per nursing, no behavioral concerns. Medication Compliance: Yes Side effects from medications: No Attending Groups: Intermittent Review of Systems Review of Systems Yes all other systems are reviewed and are negative Constitutional: Reports anorexia and Denies weakness Eyes: Reports as per HPI Reports system reviewed and no additional complaints, except as documented and Denies disequilibrium Cardiovascular: Reports as per HPI, Denies chest pain, Denies chest pain at rest, Denies chest pain with activity, Denies rapid heart rate and Reports leg edema Respiratory: Reports as per HPI, Denies chest congestion, Denies cough and Denies pain on inspiration Gastrointestinal: Reports as per HPI, Denies constipation, Denies GI cramping, Reports dyspepsia, Reports heartburn and Denies nausea Musculoskeletal: Reports no additional musculoskeletal complaints and Reports back pain Skin/Breast: Reports system reviewed and no additional complaints, except as docu Reports system reviewed and no additional complaints, except as documented, Reports memory loss, Denies disequilibrium and Denies weakness Psychiatric: Reports as per HPI and Reports memory loss Endocrine: Reports no additional endocrine complaints Hematologic/Lymphatic: Reports as per HPI Allergic/Immunologic: Reports as per HPI Mental Status Exam Mental Status Exam Narrative: Appearance: thin, casually groomed, improved hygiene in NAD Behavior:some irritable edge at times, but much less so. psychomotor: no agitation nor retardation noted Speech:clear, normal rate/rhythm, spontaneous Thought process:tangential at times Thought content:no overt psychosis, waiting to go somewhere (pt unable to say where) Mood: okay Affect: congruent, not labile SI:denies HI:denies VH/AH: no signs of internally preoccupied. Delusions: no overt delusional content reported Insight/judgment: impaired x 2. Memory/cog: alert, not oriented to month, date, situation, place. underlying neurocognitive disorder Diagnostics Vital Signs (24Hr): Vital Signs - 24 hr 07/24/21 21:00 07/25/21 06:00 Temperature 98.4 F 97.0 F Pulse Rate 98 95 Respiratory Rate 17 16 Blood Pressure 91/43 L 108/57 L Pulse Oximetry 99 98 Body Mass Index 17.9 Labs Results: 06/17/21 07:10 06/17/21 07:10 Imaging Radiology Impressions: ITS Impressions Chest X-Ray 07/09/21 08:57 IMPRESSION: No infiltrate. 13 mm nonspecific nodular density left upper lobe. Recommend elective workup. A malignant lesion is not excluded based on this baseline finding. Medications Medications Current Medications Generic Name Dose Route Start Last Admin Trade Name Freq PRN Reason Stop Dose Admin Acetaminophen 650 mg 06/16/21 17:23 07/08/21 14:37 Acetaminophen 325 Mg Tablet PO 650 mg Q6H PRN Administration Headache/Pain Mild Scale (1-3) Al Hydroxide/Mg Hydroxide 30 ml 06/16/21 17:23 07/22/21 20:40 Magnesium Hydrox/Alum Hydrox 30 Ml Oral.Susp PO 30 ml Q6H PRN Administration Heartburn/Nausea Diphenhydramine HCl 25 mg 07/21/21 21:00 07/24/21 20:13 Diphenhydramine Hcl 25 Mg Tablet PO 25 mg BEDTIME GUERO Administration Folic Acid 1 mg 06/17/21 09:00 07/25/21 08:52 Folic Acid 1 Mg Tablet PO 1 mg DAILY GUERO Administration Lidocaine 1 patch 06/17/21 09:00 07/25/21 08:57 Lidocaine 4 % Patch Adh..Patch TRANSDERMA 1 patch DAILY GUERO Administration Lorazepam 0.25 mg 07/20/21 15:00 07/25/21 08:54 Lorazepam 0.5 Mg Tablet PO 0.25 mg TID GUERO Administration Magnesium Hydroxide 30 ml 06/16/21 17:23 Milk Of Magnesia 30 Ml Oral.Susp PO DAILY PRN Constipation Mirtazapine 30 mg 07/07/21 21:00 07/24/21 20:13 Mirtazapine 15 Mg Tablet PO 30 mg BEDTIME GUERO Administration Multivitamins/Vitamin C 1 tab 06/17/21 09:00 07/25/21 08:53 Multivitamin Tablet PO 1 tab DAILY GUERO Administration Olanzapine 7.5 mg 06/26/21 21:00 07/24/21 20:13 Olanzapine 7.5 Mg Tablet PO 7.5 mg BEDTIME GUERO Administration Thiamine HCl 100 mg 06/17/21 09:00 07/25/21 08:53 Thiamine Hcl 100 Mg Tablet PO 100 mg DAILY GUERO Administration Trazodone HCl 100 mg 06/22/21 14:00 07/20/21 22:10 Trazodone Hcl 100 Mg Tablet PO 100 mg BEDTIME PRN Administration Insomnia Allergies Allergies Allergy/AdvReac Type Severity Reaction Status Date / Time acetaminophen [From Percocet] Allergy Unknown Verified 06/16/21 16:20 clotrimazole Allergy Unknown Verified 06/16/21 16:20 oxycodone [From Percocet] Allergy Unknown Verified 06/16/21 16:20 paroxetine Allergy Unknown Verified 06/16/21 16:20 sulfamethoxazole Allergy Unknown Verified 06/16/21 16:20 [From Sulfamethoxazole-Trimethoprim] trimethoprim Allergy Unknown Verified 06/16/21 16:20 [From Sulfamethoxazole-Trimethoprim] Assessment & Plan Assessment & Plan (1) Dementia associated with other underlying disease with behavioral disturbance: Status: Acute Code(s): F02.81 - Dementia in other diseases classified elsewhere with behavioral disturbance Assessment and Plan: Mrs. Ribera is a 75 year-old woman with neurocognitive disorder, admitted with psychosis and behavioral outburst, depressed mood. As of 07/19- pt with brighter affect, more engage in activities in milieu, improved hygiene. no behavioral concerns. Pt reports itchiness all over- may try loratidine unclear if report accurate. PLAN: continue per primary treatment team 1. Continue olanzapine and remeron. 2. aftercare planning. awaiting safe placement Greater than 50% of the session was spent on counseling and/or coordination of care Reason for contiued inpatient stay Substantial Risk for: inability to function
[2021-07-24] MEDS: diphenhydrAMINE HCL 25 MG TABLET PO (20:13)
[2021-07-24] MEDS: OLANZapine 7.5 MG TABLET PO (20:13)
[2021-07-24] MEDS: Mirtazapine 15 MG TABLET 30 MG PO (20:13)
[2021-07-24 21:00] VITALS: BP 91/43; PULSE 98; RESP 17; TEMP 36.9; O2SAT 99
[2021-07-25 06:00] VITALS: BP 108/57; PULSE 95; RESP 16; TEMP 36.1; O2SAT 98
--- NOTE | 2021-07-25 08:22 | P.PNPSI_ITS ---
Subjective Subjective Date of Service: 07/27/21 Reason For Visit: depression Interim History: Pt has been more visible in the unit. She is well groomed, attending activities. She states she is looking forward to transition to [facility] but suspicious about whether this information given to her by clinician is in fact accurate. She denies SI/HI. She does have a underlying negative outlook a bout her life but denies SI/HI. Her affect is much brighter than when first admitted. Per nursing, no behavioral concerns. Review of Systems Review of Systems Answers limited questions: Currently went to see the patient seems flat affect and answers only few questions denies any pain or any shortness of breath or abdominal pain or urinary complaints No fevers or any new symptoms as per staff Seems very sad and depressed also has flat affect as above and and [place] seems to me Yes all other systems are reviewed and are negative Constitutional: Reports anorexia and Denies weakness Eyes: Reports as per HPI Reports system reviewed and no additional complaints, except as documented and Denies disequilibrium Cardiovascular: Reports as per HPI, Denies chest pain, Denies chest pain at rest, Denies chest pain with activity, Denies rapid heart rate and Reports leg edema Respiratory: Reports as per HPI, Denies chest congestion, Denies cough and Denies pain on inspiration Gastrointestinal: Reports as per HPI, Denies constipation, Denies GI cramping, Reports dyspepsia, Reports heartburn and Denies nausea Musculoskeletal: Reports no additional musculoskeletal complaints and Reports back pain Skin/Breast: Reports system reviewed and no additional complaints, except as docu Reports system reviewed and no additional complaints, except as documented, Reports memory loss, Denies disequilibrium and Denies weakness Psychiatric: Reports as per HPI and Reports memory loss Endocrine: Reports no additional endocrine complaints Hematologic/Lymphatic: Reports as per HPI Allergic/Immunologic: Reports as per HPI Mental Status Exam Mental Status Exam Narrative: Appearance: thin, casually groomed, improved hygiene in NAD Behavior:some irritable edge at times, but much less so. psychomotor: no agitation nor retardation noted Speech:clear, normal rate/rhythm, spontaneous Thought process:tangential at times Thought content:no overt psychosis, waiting to go somewhere (pt unable to say where) Mood: okay Affect: congruent, not labile SI:denies HI:denies VH/AH: no signs of internally preoccupied. Delusions: no overt delusional content reported Insight/judgment: impaired x 2. Memory/cog: alert, not oriented to month, date, situation, place. underlying neurocognitive disorder Diagnostics Vital Signs (24Hr): Vital Signs - 24 hr 07/26/21 18:00 Temperature 98.7 F Pulse Rate 98 Respiratory Rate 16 Blood Pressure 90/50 L Pulse Oximetry 96 Body Mass Index 17.9 Labs Results: 06/17/21 07:10 06/17/21 07:10 Imaging Radiology Impressions: ITS Impressions Chest X-Ray 07/09/21 08:57 IMPRESSION: No infiltrate. 13 mm nonspecific nodular density left upper lobe. Recommend elective workup. A malignant lesion is not excluded based on this baseline finding. Medications Medications Current Medications Generic Name Dose Route Start Last Admin Trade Name Freq PRN Reason Stop Dose Admin Acetaminophen 650 mg 06/16/21 17:23 07/08/21 14:37 Acetaminophen 325 Mg Tablet PO 650 mg Q6H PRN Administration Headache/Pain Mild Scale (1-3) Al Hydroxide/Mg Hydroxide 30 ml 06/16/21 17:23 07/22/21 20:40 Magnesium Hydrox/Alum Hydrox 30 Ml Oral.Susp PO 30 ml Q6H PRN Administration Heartburn/Nausea Diphenhydramine HCl 25 mg 07/21/21 21:00 07/26/21 20:10 Diphenhydramine Hcl 25 Mg Tablet PO 25 mg BEDTIME GUERO Administration Folic Acid 1 mg 06/17/21 09:00 07/26/21 08:27 Folic Acid 1 Mg Tablet PO 1 mg DAILY GUERO Administration Lidocaine 1 patch 06/17/21 09:00 07/26/21 08:29 Lidocaine 4 % Patch Adh..Patch TRANSDERMA 1 patch DAILY GUERO Administration Lorazepam 0.25 mg 07/25/21 15:30 07/26/21 20:11 Lorazepam 0.5 Mg Tablet PO 0.25 mg TID GUERO Administration Magnesium Hydroxide 30 ml 06/16/21 17:23 Milk Of Magnesia 30 Ml Oral.Susp PO DAILY PRN Constipation Mirtazapine 30 mg 07/07/21 21:00 07/26/21 20:10 Mirtazapine 15 Mg Tablet PO 30 mg BEDTIME GUERO Administration Multivitamins/Vitamin C 1 tab 06/17/21 09:00 07/26/21 08:27 Multivitamin Tablet PO 1 tab DAILY GUERO Administration Olanzapine 7.5 mg 06/26/21 21:00 07/26/21 20:10 Olanzapine 7.5 Mg Tablet PO 7.5 mg BEDTIME GUERO Administration Thiamine HCl 100 mg 06/17/21 09:00 07/26/21 08:27 Thiamine Hcl 100 Mg Tablet PO 100 mg DAILY GUERO Administration Trazodone HCl 100 mg 06/22/21 14:00 07/20/21 22:10 Trazodone Hcl 100 Mg Tablet PO 100 mg BEDTIME PRN Administration Insomnia Allergies Allergies Allergy/AdvReac Type Severity Reaction Status Date / Time acetaminophen [From Percocet] Allergy Unknown Verified 06/16/21 16:20 clotrimazole Allergy Unknown Verified 06/16/21 16:20 oxycodone [From Percocet] Allergy Unknown Verified 06/16/21 16:20 paroxetine Allergy Unknown Verified 06/16/21 16:20 sulfamethoxazole Allergy Unknown Verified 06/16/21 16:20 [From Sulfamethoxazole-Trimethoprim] trimethoprim Allergy Unknown Verified 06/16/21 16:20 [From Sulfamethoxazole-Trimethoprim] Assessment & Plan Assessment & Plan (1) Dementia associated with other underlying disease with behavioral disturbance: Status: Acute Code(s): F02.81 - Dementia in other diseases classified elsewhere with behavioral disturbance Assessment and Plan: Mrs. Ribera is a 75 year-old woman with neurocognitive disorder, admitted with psychosis and behavioral outburst, depressed mood. As of 07/19- pt with brighter affect, more engage in activities in milieu, improved hygiene. no behavioral concerns. Pt reports itchiness all over- may try loratidine unclear if report accurate. PLAN: continue per primary treatment team 1. Continue olanzapine and remeron. 2. aftercare planning. awaiting safe placement Greater than 50% of the session was spent on counseling and/or coordination of care Reason for contiued inpatient stay Substantial Risk for: inability to function
[2021-07-25] MEDS: Folic Acid 1 MG TABLET PO (08:52)
[2021-07-25] MEDS: Multivitamin TABLET 1 TAB PO (08:53)
[2021-07-25] MEDS: Thiamine HCL 100 MG TABLET PO (08:53)
[2021-07-25] MEDS: LORazepam 0.5 MG TABLET 0.25 MG PO ×3 (08:54→20:14)
[2021-07-25] MEDS: Lidocaine 4 % Patch ADH..PATCH 1 PATCH TRANSDERMA (08:57)
[2021-07-25 18:00] VITALS: BP 102/58; PULSE 95; RESP 16; TEMP 37.1; O2SAT 97
[2021-07-25] MEDS: diphenhydrAMINE HCL 25 MG TABLET PO (20:14)
[2021-07-25] MEDS: Mirtazapine 15 MG TABLET 30 MG PO (20:14)
[2021-07-25] MEDS: OLANZapine 7.5 MG TABLET PO (20:14)
[2021-07-26 06:00] VITALS: BP 109/52; PULSE 102; TEMP 36.1; O2SAT 97
[2021-07-26] MEDS: Folic Acid 1 MG TABLET PO (08:27)
[2021-07-26] MEDS: LORazepam 0.5 MG TABLET 0.25 MG PO ×3 (08:27→20:11)
[2021-07-26] MEDS: Multivitamin TABLET 1 TAB PO (08:27)
[2021-07-26] MEDS: Thiamine HCL 100 MG TABLET PO (08:27)
[2021-07-26] MEDS: Lidocaine 4 % Patch ADH..PATCH 1 PATCH TRANSDERMA (08:29)
[2021-07-26 18:00] VITALS: BP 90/50; PULSE 98; RESP 16; TEMP 37.1; O2SAT 96
[2021-07-26] MEDS: OLANZapine 7.5 MG TABLET PO (20:10)
[2021-07-26] MEDS: diphenhydrAMINE HCL 25 MG TABLET PO (20:10)
[2021-07-26] MEDS: Mirtazapine 15 MG TABLET 30 MG PO (20:10)
[2021-07-27 06:00] VITALS: BP 126/59; PULSE 110; TEMP 36.2; O2SAT 98
[2021-07-27] MEDS: LORazepam 0.5 MG TABLET 0.25 MG PO ×3 (08:57→20:22)
[2021-07-27] MEDS: Folic Acid 1 MG TABLET PO (08:57)
[2021-07-27] MEDS: Thiamine HCL 100 MG TABLET PO (08:57)
[2021-07-27] MEDS: Multivitamin TABLET 1 TAB PO (08:57)
--- NOTE | 2021-07-27 11:14 | HO.PSYCHPN ---
Subjective Subjective Date of Service: 07/27/21 Reason For Visit: depression Subjective Notes: Conditional Voluntary Interim History: The nursing staff reported no new symptoms, she has been cooperative and pleasant. Today on interview, the patient reported that she feels happy that she will be discharged soon. As per social and political studies professor, her discharge is planned for tomorrow at 13:00. Medication Compliance: Yes Side effects from medications: No Attending Groups: Intermittent Review of Systems Acute medical concerns: No Medical Review of Systems: unchanged Mental Status Exam Mental Status Exam Patient Appearance: Well Grooomed Patient Orientation: Person, Place and Time Level of Consciousness: Awake Patient Behavior: Cooperative Mood Description: Constricted Affect Description: Constricted Patient Cognition Impaired: Yes Ability to Follow Directions: Good Speech Pattern: Clear Hallucinations: None Delusions: Not Present Thought Process: Goal Oriented Thought Content: positive for Circumstantial Judgement: Fair Diagnostics Vital Signs (24Hr): Vital Signs - 24 hr 07/26/21 18:00 07/27/21 06:00 Temperature 98.7 F 97.1 F Pulse Rate 98 110 H Respiratory Rate 16 Blood Pressure 90/50 L 126/59 L Pulse Oximetry 96 98 Body Mass Index 17.9 Labs Results: 06/17/21 07:10 06/17/21 07:10 Imaging Radiology Impressions: ITS Impressions Chest X-Ray 07/09/21 08:57 IMPRESSION: No infiltrate. 13 mm nonspecific nodular density left upper lobe. Recommend elective workup. A malignant lesion is not excluded based on this baseline finding. Medications Medications Current Medications Generic Name Dose Route Start Last Admin Trade Name Freq PRN Reason Stop Dose Admin Acetaminophen 650 mg 06/16/21 17:23 07/08/21 14:37 Acetaminophen 325 Mg Tablet PO 650 mg Q6H PRN Administration Headache/Pain Mild Scale (1-3) Al Hydroxide/Mg Hydroxide 30 ml 06/16/21 17:23 07/22/21 20:40 Magnesium Hydrox/Alum Hydrox 30 Ml Oral.Susp PO 30 ml Q6H PRN Administration Heartburn/Nausea Diphenhydramine HCl 25 mg 07/21/21 21:00 07/26/21 20:10 Diphenhydramine Hcl 25 Mg Tablet PO 25 mg BEDTIME GUERO Administration Folic Acid 1 mg 06/17/21 09:00 07/27/21 08:57 Folic Acid 1 Mg Tablet PO 1 mg DAILY GUERO Administration Lidocaine 1 patch 06/17/21 09:00 07/27/21 10:35 Lidocaine 4 % Patch Adh..Patch TRANSDERMA Not Given DAILY GUERO Lorazepam 0.25 mg 07/25/21 15:30 07/27/21 08:57 Lorazepam 0.5 Mg Tablet PO 0.25 mg TID GUERO Administration Magnesium Hydroxide 30 ml 06/16/21 17:23 Milk Of Magnesia 30 Ml Oral.Susp PO DAILY PRN Constipation Mirtazapine 30 mg 07/07/21 21:00 07/26/21 20:10 Mirtazapine 15 Mg Tablet PO 30 mg BEDTIME GUERO Administration Multivitamins/Vitamin C 1 tab 06/17/21 09:00 07/27/21 08:57 Multivitamin Tablet PO 1 tab DAILY GUERO Administration Olanzapine 7.5 mg 06/26/21 21:00 07/26/21 20:10 Olanzapine 7.5 Mg Tablet PO 7.5 mg BEDTIME GUERO Administration Thiamine HCl 100 mg 06/17/21 09:00 07/27/21 08:57 Thiamine Hcl 100 Mg Tablet PO 100 mg DAILY GUERO Administration Trazodone HCl 100 mg 06/22/21 14:00 07/20/21 22:10 Trazodone Hcl 100 Mg Tablet PO 100 mg BEDTIME PRN Administration Insomnia Allergies Allergies Allergy/AdvReac Type Severity Reaction Status Date / Time acetaminophen [From Percocet] Allergy Unknown Verified 06/16/21 16:20 clotrimazole Allergy Unknown Verified 06/16/21 16:20 oxycodone [From Percocet] Allergy Unknown Verified 06/16/21 16:20 paroxetine Allergy Unknown Verified 06/16/21 16:20 sulfamethoxazole Allergy Unknown Verified 06/16/21 16:20 [From Sulfamethoxazole-Trimethoprim] trimethoprim Allergy Unknown Verified 06/16/21 16:20 [From Sulfamethoxazole-Trimethoprim] Assessment & Plan Assessment & Plan (1) Dementia associated with other underlying disease with behavioral disturbance: Status: Acute Code(s): F02.81 - Dementia in other diseases classified elsewhere with behavioral disturbance Assessment and Plan: Mrs. Ribera is a 75 year-old woman with neurocognitive disorder, admitted with psychosis and behavioral outburst, depressed mood. As of 07/19- pt with brighter affect, more engage in activities in milieu, improved hygiene. no behavioral concerns. Pt reports itchiness all over- may try loratidine unclear if report accurate. PLAN: continue per primary treatment team 1. Continue olanzapine and remeron. 2. aftercare planning. awaiting safe placement Greater than 50% of the session was spent on counseling and/or coordination of care Reason for contiued inpatient stay Substantial Risk for: inability to function, rapid decompensation and med/psych decompensation
[2021-07-27 11:53] LABS: COVID-19 Test Negative (Negative)
[2021-07-27 18:00] VITALS: BP 115/55; PULSE 100; TEMP 36.9; O2SAT 100
[2021-07-27] MEDS: Mirtazapine 15 MG TABLET 30 MG PO (20:22)
[2021-07-27] MEDS: OLANZapine 7.5 MG TABLET PO (20:22)
[2021-07-27] MEDS: diphenhydrAMINE HCL 25 MG TABLET PO (20:22)
[2021-07-28] MEDS: LORazepam 0.5 MG TABLET 0.25 MG PO (09:00)
[2021-07-28] MEDS: Thiamine HCL 100 MG TABLET PO (09:01)
[2021-07-28] MEDS: Folic Acid 1 MG TABLET PO (09:01)
[2021-07-28] MEDS: Multivitamin TABLET 1 TAB PO (09:01)
--- NOTE | 2021-07-28 11:10 | PM.PSYDC ---
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: Status: Acute DS: Medications Discharge Medications Home Medications: Home Medications Medication Instructions Recorded Confirmed mirtazapine 7.5 mg tablet 7.5 mg PO BEDTIME 06/16/21 06/16/21 olanzapine 5 mg tablet 5 mg PO BEDTIME 06/16/21 06/16/21 Previous Rx's Medication Instructions Recorded aluminum-magnesium hydroxide 200 30 ml PO Q6H PRN 30 Days #900 ml 07/23/21 mg-200 mg/5 mL oral suspension (MAG-AL) diphenhydramine HCl 25 mg tablet 25 mg PO BEDTIME 30 Days #30 tab 07/23/21 (Allergy Relief (diphenhydramine)) folic acid 1 mg tablet 1 mg PO DAILY 30 Days #30 tab 07/23/21 lidocaine 5 % topical patch 1 patch TOPICAL DAILY 30 Days #30 07/23/21 ea lorazepam 0.5 mg tablet 0.25 mg PO TID 30 Days #45 tab 07/23/21 multivitamin 1 tab PO DAILY 30 Days #30 tab 07/23/21 olanzapine 7.5 mg tablet 7.5 mg PO BEDTIME 30 Days #30 tab 07/23/21 thiamine HCl (vitamin B1) 100 mg 100 mg PO DAILY 30 Days #30 tab 07/23/21 tablet Mental Status Exam Mental Status Exam Patient Appearance: Well Grooomed Patient Orientation: Person, Place, Time and Situation Level of Consciousness: Awake Patient Behavior: Appropriate and Cooperative Mood Description: Calm Affect Description: Constricted Patient Cognition Impaired: No Ability to Follow Directions: Good Speech Pattern: Clear Memory Description: Normal for Patient Hallucinations: None Delusions: Not Present Thought Process: Intact Thought Content: positive for Circumstantial Judgement: Fair Data Data Completed and Pending Completed studies during hospitalization [Text1]: 07/27/21 11:18 COVID-19 ([facility]) Negative COVID-19 Clin Com See Note Imaging Diagnostic Imaging Impressions Chest X-Ray 07/09/21 08:57 IMPRESSION: No infiltrate. 13 mm nonspecific nodular density left upper lobe. Recommend elective workup. A malignant lesion is not excluded based on this baseline finding. DS: Summary Hospital Course Hospital Course: Please see HPI for more details of admission. The patient was initially started on olanzapine titrated up slowly up to 7.5 mg to target the delusive thinking and poor sleep. Also mirtazapine was increased very slowly to target depressive symptoms with further improvement of her mood. During the hospitalization, the patient was very pessimistic and negative but eventually her mood improved to the point that she attended groups, she was future oriented and she was cooperative with care. We consulted with the hospitalist due to her lung cancer stage IV and it has been is stable with no acute symptoms. She has gained weight at least 5 lb in the 1st 30 days of her admission and so far she feels much better. Since there were no delusions thinking, depressive symptoms or suicidal ideation or any other safety concerns, discharge planning was discussed. It was very challenging to find a suitable facility since the patient had a complex financial situation but eventually, an assisted living facility was able to provide housing. Time spent discussing smoking cessation with patient: 3 to 10 minutes Status at Discharge Cognitive/behavioral status at discharge: At baseline Functional status at discharge: independent ambulation Overall status at discharge: patient is back to baseline Time Spent with Patient Time attestation: Total time spent providing and/or coordinating discharge services: Time spent: Less than 30 minutes Discharge Plan Discharge Patient Disposition: Xfer Other Discharge Diagnosis: Psychosis induced by medical condition Referrals: [facility] [Other] - 08/05/21 11:00 am (Medication appointment scheduled for , 08/05/21 @ 11 AM via telehealth. Please have staff member assist Ela with this phone call.) Shantanu Allen MD [Primary Care Provider] - 1 Week Discharge Medications: New olanzapine 7.5 mg Tablet 7.5 mg PO BEDTIME 30 Days Qty: 30 RF: 0 lorazepam 0.5 mg Tablet 0.25 mg PO TID 30 Days Qty: 45 RF: 0 diphenhydramine HCl [Allergy Relief(diphenhydramin)] 25 mg Tablet 25 mg PO BEDTIME 30 Days Qty: 30 RF: 0 MAG-AL 200-200 mg/5 mL Suspension 30 ml PO Q6H PRN (Reason: Heartburn/Nausea) 30 Days Qty: 900 RF: 0 mirtazapine [Remeron] 30 mg tablet 30 mg PO BEDTIME Qty: 30 RF: 0 Continued multivitamin Tablet 1 tab PO DAILY 30 Days Qty: 30 RF: 0 thiamine HCl (vitamin B1) 100 mg Tablet 100 mg PO DAILY 30 Days Qty: 30 RF: 0 lidocaine 5 % Adhesive Patch,Medicated 1 patch TOPICAL DAILY 30 Days Qty: 30 RF: 0 folic acid 1 mg Tablet 1 mg PO DAILY 30 Days Qty: 30 RF: 0 Discontinued olanzapine 5 mg Tablet 5 mg PO BEDTIME RF: 0 mirtazapine 7.5 mg Tablet 7.5 mg PO BEDTIME RF: 0 Discharge Orders: Discharge Order (Routine); Ordered 07/28/21 Ordered By: Tj La Diet: advance to usual diet Activity on Discharge: As tolerated Stand Alone Forms: Patient Portal Discharge page Care Plan Goals: Care plan goals are already achieved during the admission Health Concerns: Continue with primary healthcare provider as an outpatient Plan of Treatment: Continue medication management by outpatient provider Assessment: The patient is an elderly female with a long history of lung cancer stage IV who received radiotherapy, chemotherapy and other treatments. She was admitted into this facility due to paranoia and other psychotic symptoms with dysphoria that responded very well to medications. Her psychiatric symptoms werein clear correlation of her medical problems that the are at this moment is stable
== END 2021-07-28 13:15 | disposition other institution (70) | DRG 884 ==
PROVIDERS: Admitting Provider Psychiatry & Neurology Psychiatry; PCP Internal Medicine; Visit Provider Psychiatry & Neurology Psychiatry
DX: F03.91 Unspecified dementia, unspecified severity, with behavioral disturbance (principal); F32.9 Major depressive disorder, single episode, unspecified; Z20.822 Contact with and (suspected) exposure to COVID-19; Z85.118 Personal history of other malignant neoplasm of bronchus and lung; Z87.891 Personal history of nicotine dependence; Z88.2 Allergy status to sulfonamides; Z88.5 Allergy status to narcotic agent; Z88.6 Allergy status to analgesic agent; Z79.899 Other long term (current) drug therapy
CPT/HCPCS: 36415; 71046; 80053; 80061; 82607; 82746; 83036; 84439; 84443; 85025; 87635; 92610; 99232; Q0163